=== PATIENT | female | born 1960 | race Caucasian/White ===

== ENCOUNTER 2016-11-21 08:01 | Outpatient (CLI) | payer MEDICAID ==
[~2016-11-21 08:01] MED LIST: ALDOMET PO; ARIMIDEX1 MG PO; ATIVAN0.5 MG PO; ATORVASTATIN CA20 MG PO; CLEOCIN HCL150 MG PO; CLINDAMYCIN300 M1 PO; DYNAPEN PO; ECOTRIN81 MG PO; ENALAPRIL10 M1 PO; GLUCOPHAGE500 MG PO; LOPID600 MG PO; LOPRESSOR100 MG PO; MOBIC7.5 MG PO; NORVASC10 MG PO; ONGLYZA5 MG PO; ORETIC25 MG PO; TAMOXIFEN CITRA20 MG PO; VASOTEC10 MG PO; VASOTEC20 MG PO; VICODIN 5/500 M1 TAB PO; XARELTO10 MG PO
[2017-01-06] MEDS ORDERED: CLEOCIN HCL300 MG PO (14:38)
[2017-01-06] MEDS ORDERED: ACIDOPHILU1 Billion (14:39)
[2017-04-23] MEDS ORDERED: LEVAQUIN500 M1 PO (08:30)
[2017-04-23] MEDS ORDERED: CLEOCIN HCL150 MG PO (08:34)
[2017-04-23] MEDS ORDERED: CLEOCIN HCL300 MG PO (08:59)
[2017-04-23] MEDS ORDERED: PROBIOTIC1 EACH PO (09:01)
== END 2016-11-21 19:51 | disposition home or self-care (01) ==
LOC: MLB 08:01
PROVIDERS: ATTEND Internal Medicine Geriatric Medicine
DX: E11.9 Type 2 diabetes mellitus without complications (principal); E78.5 Hyperlipidemia, unspecified

== ENCOUNTER 2017-01-04 17:34 | Inpatient (IN) | payer MEDICAID ==
[~2017-01-04] VITALS: Ht 157.5 cm; Wt 74.9 kg
[~2017-01-04 17:34] MED LIST changes: +ALD250 PO; -ALDOMET PO; +AMLO10TA PO; +ARI1 PO; -ARIMIDEX1 MG PO; +ASPI-1093 PO; +ATI.5 PO; -ATIVAN0.5 MG PO; +ATOR20TA40 PO; -ATORVASTATIN CA20 MG PO; -CLEOCIN HCL150 MG PO; +CLIN150C1 PO; -CLINDAMYCIN300 M1 PO; -DYNAPEN PO; -ECOTRIN81 MG PO; +ENAL10TA41 PO; +ENAL20TA46 PO; -ENALAPRIL10 M1 PO; +GEMF600T5 PO; -GLUCOPHAGE500 MG PO; -LOPID600 MG PO; -LOPRESSOR100 MG PO; +MELO7.5T11 PO; +METF500T PO; +METO100T98 PO; -MOBIC7.5 MG PO; -NORVASC10 MG PO; -ONGLYZA5 MG PO; +ORE25 PO; -ORETIC25 MG PO; +SAXA5TAB PO; +TAMO20TA3 PO; -TAMOXIFEN CITRA20 MG PO; -VASOTEC10 MG PO; -VASOTEC20 MG PO; -VICODIN 5/500 M1 TAB PO; +XAR10 PO; -XARELTO10 MG PO; +[UNRECOGNIZED DRUG - CODE] PO
[2017-01-04 17:46] VITALS: BP 145/60
--- NOTE | 2017-01-04 19:09 | NUR ---
Patient ambulated to bed 03.
[2017-01-04] MEDS ORDERED: NACL 0.9% 1,000 ML IV ONE (19:32)
[2017-01-04] MEDS ORDERED: PIPERACILLIN/TAZOBACTAM 3.375 GM in DEXTROSE 5% 50 ML IV ONE (19:35)
--- NOTE | 2017-01-04 19:37 | NUR ---
Dr. Francois evaluating patient at bedside.
--- NOTE | 2017-01-04 19:37 | NUR ---
PATIENT PRESENTS TO ED WITH RUE PAIN/SWELLING/ERYTHEMA . PT STATES THIS IS RECURRENT EVERY 6 MONTHS AND SHE IS USUALLY GIVEN ANTIBIOTICS AND DX WITH INFECTION . DENIES N/V/D; SKIN IS PINK/WARM/DRY; AAOX4 WITH EVEN AND STEADY GAIT; LUNGS CLEAR BL; HR EVEN AND REGULAR; PT DENIES ANY FEVER, CP, SOB, OR COUGH AT THIS TIME; PATIENT STATES PAIN OF 0/10 AT THIS TIME; VSS; PATIENT POSITIONED FOR COMFORT; HOB ELEVATED; BEDRAILS UP X2; BED DOWN. ER MD MADE AWARE OF PT STATUS.SON AT BEDSIDE
--- NOTE | 2017-01-04 19:48 | NUR ---
XRAY at bedside.
[2017-01-04] MEDS ORDERED: PIPERACILLIN/TAZOBACTAM 3.375 GM VIAL IV ONE ×2 (19:56→23:15)
[2017-01-04 20:01] LABS: BASOPHILS # (AUTO) 0.4 K/uL (0.00-0.22); BASOPHILS % (AUTO) 3.2 % (0.0-2.0); EOSINOPHILS # (AUTO) 0.2 K/uL (0-0.4); EOSINOPHILS % (AUTO) 1.6 % (0.0-4.0); HEMATOCRIT 44.9 % (36-48); HEMOGLOBIN 14.9 g/dL (12.0-16.0); LYMPHOCYTES # (AUTO) 1.1 K/uL (2.5-16.5); MEAN CORPUSCULAR HEMOGLOBIN 30 pg (27-31); MEAN CORPUSCULAR HGB CONC 33 g/dL (33-37); MEAN CORPUSCULAR VOLUME 90 fL (80-94); MONOCYTES # (AUTO) 0.3 K/uL (0.8-1.0); MONOCYTES % (AUTO) 2.1 % (1.7-9.3); NEUTROPHILS # (AUTO) 11.8 K/uL (1.8-7.7); NEUTROPHILS % (AUTO) 85.1 % (42.2-75.2); PLATELET COUNT (AUTO) 170 K/uL (140-450); RED BLOOD CELL COUNT(AUTO) 4.98 MIL/uL (4.20-5.40); RED CELL DISTRIBUTION WIDTH 11.8 % (11.6-13.7); WHITE BLOOD COUNT (AUTO) 13.8 K/uL (4.8-10.8)
[2017-01-04 20:17] LABS: ALBUMIN 3.7 g/dL (3.4-5.0); ANION GAP 14.2 (8-16); CARBON DIOXIDE 30.1 mmol/L (21-32); CREATININE 0.8 mg/dL (0.6-1.3); POTASSIUM 3.3 mmol/L (3.5-5.1); TOTAL BILIRUBIN 0.8 mg/dL (0.0-1.0); TOTAL PROTEIN, SERUM 7.4 g/dL (6.4-8.2)
[2017-01-04 20:25] LABS: INR 1.1 (0.8-1.2); PROTHROMBIN TIME 10.4 secs (10.8-13.4)
--- NOTE | 2017-01-04 20:28 | NUR ---
Patient will be going to room 104 via ruyen per RN.
[2017-01-04 20:33] LABS: LACTIC ACID 2.4 mmol/L (0.4-2.0)
--- NOTE | 2017-01-04 20:33 | NUR ---
SPOKE TO HOUSE FLORENTINO TINEO PATIENT WILL GO TO ER HOLD. ER MD AWARE. PER FELIPE, WAITING FOR LAB RESULTS
[2017-01-04] MEDS ORDERED: NACL 0.9% 1,500 ML IV ONE (20:35)
[2017-01-04] MEDS ORDERED: MORPHINE SULFATE 4 MG/ML SYR IVP ONE (20:35)
[2017-01-04] MEDS ORDERED: ONDANSETRON 4 MG/2 ML VIAL IVP ONE (20:35)
[2017-01-04] MEDS ORDERED: HYDROcodone/APAP 5/325 MG 1 TAB TAB PO PRN (21:00)
[2017-01-04] MEDS ORDERED: ACETAMINOPHEN 325 MG TAB PO PRN (21:00)
[2017-01-04] MEDS ORDERED: ONDANSETRON 4 MG/2 ML VIAL IVP PRN (21:00)
[2017-01-04] MEDS ORDERED: POTASSIUM CHLORIDE 10 MEQ TABER PO SCH (21:05)
--- NOTE | 2017-01-04 21:07 | NUR ---
Patient will be admitted to care of . Admited to TELEMETRY. Will go to room 112B. Belongings list completed. Report to J Carlos YOUNG RN
--- NOTE | 2017-01-04 21:10 | NUR ---
Admitted from [facility] with chief complaint of RIGHT ARM PAIN. A 56 y/o. Female, Appropriate. ALERT AWAKE ORIENTED X4. NIGERIAN-SPEAKING BUT FAMILY MEMBER ARE AT BEDSIDE DURING ADMISSION. INITIAL ASSESSMENT DONE. NO S/S OF RESPIRATORY DISTRESS OR SOB NOTED. NO C/O PAIN OR ANY DISCOMFORT AT THIS TIME. REDNESS AND SWELLING NOTED ON THE RIGHT ARM D/T CELLULITIS. PLAN OF CARE REVIEWED TO PT AND FAMILY AT BEDSIDE. AND VERBALIZED UNDERSTANDING. oriented to call light, bed, phone,television, bathroom, smoking policy, visiting hours, procedures, ID bracelet on. Belongings list checked. CALL LIGHT WITHIN REACH. WILL CONTINUE TO MONITOR.
[2017-01-04] MEDS: NACL 0.9% 1,000 ML IV SCH (21:15)
[2017-01-04] MEDS ORDERED: DEXTROSE 50% 50 ML SYR IVP PRN ×2 (21:20→21:30)
[2017-01-04] MEDS ORDERED: INSULIN LISPRO SLIDING SCALE 100 UNITS/ML VIAL SUBQ PRN (21:20)
[2017-01-04 22:02] LABS: FREE T4 (FREE THYROXINE) 1.02 ng/dL (0.76-1.46); THYROID STIMULATING HORMONE 0.28 uIU/mL (0.34-3.76)
[2017-01-04 22:06] LABS: APPEARANCE,URINE CLEAR (CLEAR); BILIRUBIN,URINE NEGATIVE (NEGATIVE); BLOOD, URINE TRACE-I (NEGATIVE); COLOR,URINE YELLOW (YELLOW); LEUKOCYTE ESTERASE ,URINE NEGATIVE (NEGATIVE); NITRITE, URINE NEGATIVE (NEGATIVE); PH,URINE 6.5 (5.0-9.0); PROTEIN,URINE NEGATIVE (NEGATIVE); UGLUCOSE 3+ (NEGATIVE); UROBILINOGEN,URINE 0.2 EU/dL (0.2 - 1)
[2017-01-04 22:12] LABS: AMPHETAMINE, URINE NEG. ng/ml (NEG <=1000); BARBITURATE, URINE NEG. ng/ml (NEG <=200); BENZODIAZEPINE, URINE NEG. ng/mL (NEG <=200); CANNABINOID, URINE NEG. ng/mL (NEG <=50); COCAINE, URINE NEG. ng/mL (NEG <=300); OPIATE, URINE NEG. ng/mL (NEG <=2000); PHENCYCLIDINE SCREEN,URINE NEG. ng/mL (NEG <=25)
[2017-01-04 22:19] LABS: BACTERIA,URINE FEW /HPF (None Seen); RBC,URINE 0-5 (RARE) /HPF (0-5); SQUAMOUS EPITHELIAL CELL,UR None Seen /LPF (0-3 (FEW)); WBC,URINE 0-5 (RARE) /HPF (0-5); YEAST,URINE Rare /HPF (None Seen)
[2017-01-04] MEDS: PIPER/TAZO 3.375GM/D5W PREMIX 50 ML IV SCH (23:39)
[2017-01-05] VITALS: BP 125/72
--- NOTE | 2017-01-05 00:30 | NUR ---
PT IS ASLEEP RIGHT NOW BUT EASILY AROUSABLE. NO S/S OF ANY DISCOMFORT AT THIS TIME. ALL NEEDS ARE ATTENDED. CALL LIGHT WITHIN REACH. WILL CONTINUE TO MONITOR.
[2017-01-05 04:00] VITALS: BP 128/76
[2017-01-05] MEDS ORDERED: PIPERACILLIN/TAZOBACTAM 3.375 GM VIAL IV ONE (05:06)
[2017-01-05] MEDS: PIPER/TAZO 3.375GM/D5W PREMIX 50 ML IV SCH ×4 (05:26→23:38)
--- NOTE | 2017-01-05 05:30 | NUR ---
AM CARE RENDERED. BED LINEN CHANGED. INSTRUCTED PT TO REPOSITION. KEPT CLEAN AND DRY. CALL LIGHT WITHIN REACH. WILL CONTINUE TO MONITOR.
[2017-01-05 06:23] LABS: BASOPHILS % (AUTO) 0.6 % (0.0-2.0); EOSINOPHILS # (AUTO) 0.1 K/uL (0-0.4); EOSINOPHILS % (AUTO) 0.8 % (0.0-4.0); HEMOGLOBIN 13.2 g/dL (12.0-16.0); LYMPHOCYTES # (AUTO) 1.3 K/uL (2.5-16.5); LYMPHOCYTES % (AUTO) 16.4 % (20.5-51.1); MEAN CORPUSCULAR HEMOGLOBIN 31 pg (27-31); MEAN CORPUSCULAR HGB CONC 34 g/dL (33-37); MEAN CORPUSCULAR VOLUME 90 fL (80-94); MONOCYTES # (AUTO) 0.4 K/uL (0.8-1.0); MONOCYTES % (AUTO) 4.7 % (1.7-9.3); NEUTROPHILS # (AUTO) 6.2 K/uL (1.8-7.7); NEUTROPHILS % (AUTO) 77.5 % (42.2-75.2); PLATELET COUNT (AUTO) 143 K/uL (140-450); RED BLOOD CELL COUNT(AUTO) 4.33 MIL/uL (4.20-5.40); RED CELL DISTRIBUTION WIDTH 12.1 % (11.6-13.7)
[2017-01-05] MEDS: BLOOD GLUCOSE MONITORING 1 DEV DEV FS SCH ×4 (06:33→21:36)
[2017-01-05 06:35] LABS: MAGNESIUM 1.9 mg/dL (1.8-2.4); PHOSPHORUS 3.6 mg/dL (2.5-4.9)
[2017-01-05 06:36] LABS: CALCIUM 7.6 mg/dL (8.5-10.1); CARBON DIOXIDE 27.7 mmol/L (21-32); CREATININE 0.7 mg/dL (0.6-1.3); POTASSIUM 3.7 mmol/L (3.5-5.1)
--- NOTE | 2017-01-05 07:15 | NUR ---
PT HAS NO S/S OF ANY DISCOMFORT. PLAN OF CARE ENDORSED TO ALEJO LO AT BEDSIDE FOR CONTINUITY OF CARE.
--- NOTE | 2017-01-05 07:16 | NUR ---
PATIENT HAS BEEN SCREENED AND CATEGORIZED MODERATE NUTRITION RISK. PATIENT WILL BE SEEN WITHIN 3-5 DAYS OF ADMISSION. 01/07/17-01/09/17 ADRIENNE LOZA MS, RDN
--- NOTE | 2017-01-05 07:17 | NUR ---
RECEIVED REPORT FROM NIGHT RN. PT RESTING IN BED. AAOX4. NO S/S OF ACUTE DISTRESS. PT DENIES PAIN. IV SITES PATENT AND INTACT. CALL LIGHT WITHIN REACH. WILL CONTINUE TO MONITOR.
[2017-01-05] MEDS ORDERED: BLOOD GLUCOSE MONITORING 1 DEV DEV FS SCH (07:30)
[2017-01-05 08:00] VITALS: BP 123/77
[2017-01-05] MEDS: metFORMIN 500 MG TAB PO SCH ×2 (08:36→17:01)
[2017-01-05] MEDS: METOPROLOL 50 MG TAB PO SCH ×2 (09:28→21:38)
[2017-01-05] MEDS: NACL 0.9% 1,000 ML IV SCH ×2 (09:28→12:40)
[2017-01-05] MEDS: amLODIPine 5 MG TAB PO SCH (09:29)
[2017-01-05] MEDS: DOCUSATE SODIUM 100 MG GELCAP PO SCH (09:29)
[2017-01-05] MEDS: LACTOBACILLUS RHAMNOSUS GG 1 EACH CAP PO SCH (09:30)
[2017-01-05] MEDS: ECOTRIN 81 MG TABEC PO SCH (09:31)
[2017-01-05] MEDS: GEMFIBROZIL 600 MG TAB PO SCH ×2 (09:32→21:38)
--- NOTE | 2017-01-05 09:32 | NUR ---
PER DR. LAYNE GIVE ALL AM MEDICATIONS.
[2017-01-05] MEDS: LORazepam 0.5 MG TAB PO SCH (09:33)
[2017-01-05] MEDS: ENALAPRIL 10 MG TAB PO SCH (09:33)
[2017-01-05] MEDS: RIVAROXABAN 10 MG TAB PO SCH (09:39)
[2017-01-05] MEDS: METHYLDOPA 250 MG TAB PO SCH (09:42)
[2017-01-05] MEDS: ANASTROZOLE 1 MG TAB PO SCH (09:44)
--- NOTE | 2017-01-05 09:57 | NUR ---
PT RESTING IN BED. NO S/S OF ACUTE DISTRESS. PT DENIES PAIN. PT TOLERATED AM MEDS. CALL LIGHT WITHIN REACH. SAFETY MEASURES ENSURED. WILL CONTINUE TO MONITOR.
[2017-01-05 12:00] VITALS: BP 136/70
--- NOTE | 2017-01-05 12:26 | NUR ---
PT RESTING IN BED. NO S/S OF ACUTE DISTRESS. PT DENIES PAIN. CALL LIGHT WITHIN REACH. SAFETY MEASURES ENSURED. WILL CONTINUE TO MONITOR.
--- NOTE | 2017-01-05 14:48 | NUR ---
PT RESTING IN BED. NO S/S OF ACUTE DISTRESS. PT DENIES PAIN. CALL LIGHT WITHIN REACH. SAFETY MEASURES ENSURED. WILL CONTINUE TO MONITOR.
[2017-01-05 16:00] VITALS: BP 127/72
--- NOTE | 2017-01-05 16:31 | NUR ---
PT RESTING IN BED. NO S/S OF ACUTE DISTRESS. PT DENIES PAIN. CALL LIGHT WITHIN REACH. SAFETY MEASURES ENSURED. WILL CONTINUE TO MONITOR.
--- NOTE | 2017-01-05 19:15 | NUR ---
ENDORSED PLAN OF CARE TO NIGHT RN. PT REMAINS IN STABLE CONDITION
--- NOTE | 2017-01-05 19:20 | NUR ---
RECEIVED PT FROM ALEJO RN PT LIBERIAN SPEAKER AAOX4 AMBULATORY WITH CELLULITIS ON RT ARM, IV O;N LEFT HAND INFUSING WELL AND HL ON LEFT AC PATENT, ON TELEMETRY SR, RELATIVES AT [facility] INITIAL ASSESSMENT DONE
[2017-01-05 20:00] VITALS: BP 128/75
[2017-01-05] MEDS ORDERED: ATORVASTATIN 20 MG TAB PO SCH (21:00)
--- NOTE | 2017-01-05 21:30 | NUR ---
BLOOD SUGAR TEST 165 COVERAGE WITH 2 UNITS HUMALOG ON TELE SR
[2017-01-05] MEDS: INSULIN LISPRO SLIDING SCALE 100 UNITS/ML VIAL SUBQ PRN (21:32)
[2017-01-05] MEDS: CALCIUM CARB/VIT-D 500 MG/200 IU 1 TAB PO SCH (21:38)
[2017-01-06] VITALS: BP 143/71
--- NOTE | 2017-01-06 01:02 | NUR ---
PT SLEEPING WELL RT ARM ON PILLOW ELEVATION DENIES ANY PAIN AT THIS TIME ON TELE SR
[2017-01-06 04:00] VITALS: BP 139/71
--- NOTE | 2017-01-06 04:00 | NUR ---
SPONGE BATH GIVEN LINEN CHANGE, ON TELEMETRY SR RT ARM ON PILLOW ELEVATION
[2017-01-06] MEDS: PIPER/TAZO 3.375GM/D5W PREMIX 50 ML IV SCH ×2 (06:17→11:54)
[2017-01-06] MEDS: BLOOD GLUCOSE MONITORING 1 DEV DEV FS SCH ×2 (06:21→11:47)
--- NOTE | 2017-01-06 06:30 | NUR ---
BLOOD SUGAR TEST 149 NOT COVERAGE PT ON TELEMETRY SR
[2017-01-06 06:44] LABS: BASOPHILS # (AUTO) 0.1 K/uL (0.00-0.22); BASOPHILS % (AUTO) 1.2 % (0.0-2.0); EOSINOPHILS # (AUTO) 0.2 K/uL (0-0.4); EOSINOPHILS % (AUTO) 3.4 % (0.0-4.0); HEMATOCRIT 40.6 % (36-48); HEMOGLOBIN 13.9 g/dL (12.0-16.0); LYMPHOCYTES # (AUTO) 1.4 K/uL (2.5-16.5); LYMPHOCYTES % (AUTO) 26.5 % (20.5-51.1); MEAN CORPUSCULAR HEMOGLOBIN 31 pg (27-31); MEAN CORPUSCULAR HGB CONC 34 g/dL (33-37); MEAN CORPUSCULAR VOLUME 90 fL (80-94); MONOCYTES # (AUTO) 0.3 K/uL (0.8-1.0); MONOCYTES % (AUTO) 6.6 % (1.7-9.3); NEUTROPHILS # (AUTO) 3.3 K/uL (1.8-7.7); NEUTROPHILS % (AUTO) 62.3 % (42.2-75.2); PLATELET COUNT (AUTO) 158 K/uL (140-450); WHITE BLOOD COUNT (AUTO) 5.3 K/uL (4.8-10.8)
[2017-01-06 06:58] LABS: MAGNESIUM 2.2 mg/dL (1.8-2.4)
[2017-01-06 07:02] LABS: ANION GAP 11.8 (8-16); CALCIUM 8.6 mg/dL (8.5-10.1); CARBON DIOXIDE 27.1 mmol/L (21-32); CREATININE 0.6 mg/dL (0.6-1.3); POTASSIUM 3.9 mmol/L (3.5-5.1)
--- NOTE | 2017-01-06 07:07 | NUR ---
RECEIVED REPORT FROM NIGHT RN. PT RESTING IN BED. AAOX4. NO S/S OF ACUTE DISTRESS. PT DENIES PAIN. IV SITES PATENT AND INTACT. CALL LIGHT WITHIN REACH. SAFETY MEASURES ENSURED. WILL CONTINUE TO MONITOR.
[2017-01-06 07:56] VITALS: BP 121/70
[2017-01-06] MEDS: amLODIPine 5 MG TAB PO SCH (08:32)
[2017-01-06] MEDS: DOCUSATE SODIUM 100 MG GELCAP PO SCH (08:32)
[2017-01-06] MEDS: METHYLDOPA 250 MG TAB PO SCH (08:32)
[2017-01-06] MEDS: METOPROLOL 50 MG TAB PO SCH (08:32)
[2017-01-06] MEDS: metFORMIN 500 MG TAB PO SCH (08:33)
[2017-01-06] MEDS: ECOTRIN 81 MG TABEC PO SCH (08:33)
[2017-01-06] MEDS: LACTOBACILLUS RHAMNOSUS GG 1 EACH CAP PO SCH (08:33)
[2017-01-06] MEDS: ENALAPRIL 10 MG TAB PO SCH (08:33)
[2017-01-06] MEDS: CALCIUM CARB/VIT-D 500 MG/200 IU 1 TAB PO SCH (08:33)
[2017-01-06] MEDS: GEMFIBROZIL 600 MG TAB PO SCH (08:33)
[2017-01-06] MEDS: LORazepam 0.5 MG TAB PO SCH (08:34)
[2017-01-06] MEDS: ANASTROZOLE 1 MG TAB PO SCH (08:35)
[2017-01-06] MEDS: RIVAROXABAN 10 MG TAB PO SCH (08:46)
--- NOTE | 2017-01-06 10:22 | NUR ---
PT RESTING IN BED. NO S/S OF CUTE DISTRESS. PT DENIES PAIN. CALL LIGHT WITHIN REACH. SAFETY MEASURES ENSURED. WILL CONTINUE TO MONITOR.
[2017-01-06 11:20] VITALS: BP 121/70
--- NOTE | 2017-01-06 11:24 | NUR ---
PT TAKEN TO SHOWER. NO S/S OF ACUTE DISTRESS. PT STEADY ON FEET. PT DENIES PAIN. CALL LIGHT WITHIN REACH. SAFETY MEASURES ENSURED. WILL CONTINUE TO MONITOR.
[2017-01-06 12:00] VITALS: BP 137/77
[2017-01-06] MEDS: INSULIN LISPRO SLIDING SCALE 100 UNITS/ML VIAL SUBQ PRN (12:32)
[2017-01-06] MEDS ORDERED: CLIN300C2 PO (14:38)
[2017-01-06] MEDS ORDERED: LACT-2 (14:39)
--- NOTE | 2017-01-06 15:15 | NUR ---
PT CLEARED FOR DISCHARGE. DISCHARGE INSTRUCTIONS PROVIDED. PT VERBALIZED UNDERSTANDING. IV'S TAKEN OUT. TIPS INTACT. NO S/S OF ACUTE DISTRESS. PT DENIES PAIN. PT STATES SHE IS UP TO DATE ON FLU AND PNA VACCINE. AWAITING RIDE FROM .
--- NOTE | 2017-01-06 15:27 | NUR ---
PT TAKEN OFF UNIT. PT REMAINS IN STABLE CONDITION.
== END 2017-01-06 15:27 | disposition home or self-care (01) | DRG 720 ==
LOC: MED 17:39 → MTU 19:41
PROVIDERS: ADMIT Student in an Organized Health Care Education/Training Program; ATTEND Student in an Organized Health Care Education/Training Program
DX: A41.9 Sepsis, unspecified organism (principal); E11.51 Type 2 diabetes mellitus with diabetic peripheral angiopathy without gangrene; D68.69 Other thrombophilia; I82.621 Acute embolism and thrombosis of deep veins of right upper extremity; E11.65 Type 2 diabetes mellitus with hyperglycemia; E83.51 Hypocalcemia; L03.113 Cellulitis of right upper limb; E78.5 Hyperlipidemia, unspecified; I10 Essential (primary) hypertension; Z90.11 Acquired absence of right breast and nipple; Z79.899 Other long term (current) drug therapy; Z79.84 Long term (current) use of oral hypoglycemic drugs; Z85.3 Personal history of malignant neoplasm of breast; Z83.3 Family history of diabetes mellitus
CPT/HCPCS: 36415; 71010; 80048; 80053; 80305; 81001; 82948; 83036; 83605; 83690; 83735; 83880; 84100; 84439; 84443; 84484; 85025; 85610; 87040; 87081; 87086; 93005; 93925; 93970; 96365; 96375; 99285; J2270; J2405; J2543; J7030; J7060; Q0092

== ENCOUNTER 2017-02-21 08:04 | Outpatient (CLI) | payer MEDICAID ==
[~2017-02-21 08:04] MED LIST changes: -CLIN150C1 PO; +CLIN300C2 PO; -ENAL10TA41 PO; +LACT-2; -ORE25 PO; -TAMO20TA3 PO; -[UNRECOGNIZED DRUG - CODE] PO
[2017-02-21 09:48] LABS: ANION GAP 10.9 (8-16); CARBON DIOXIDE 30.5 mmol/L (21-32); CREATININE 0.6 mg/dL (0.6-1.3); POTASSIUM 3.4 mmol/L (3.5-5.1)
[2017-02-21 09:55] LABS: ALBUMIN 3.7 g/dL (3.4-5.0); TOTAL BILIRUBIN 0.6 mg/dL (0.0-1.0); TOTAL PROTEIN, SERUM 7.1 g/dL (6.4-8.2)
[2017-02-21 11:29] LABS: CHOL/HDL RATIO 3.9 (1-4.5)
[2017-02-22 10:28] LABS: VITAMIN D, 25-HYDROXY 24.9 ng/mL (30.0-100.0)
[2017-02-22 15:27] LABS: MICROALBUMIN, UR RANDOM <3.0 ug/mL (Not Estab.)
[2017-02-22 17:16] LABS: HEMOGLOBIN A1C 7.8 % (4.8-5.6)
== END 2017-02-21 19:44 | disposition home or self-care (01) ==
LOC: MLB 08:04
PROVIDERS: ATTEND Internal Medicine Geriatric Medicine
DX: E78.5 Hyperlipidemia, unspecified (principal); E11.9 Type 2 diabetes mellitus without complications; E55.9 Vitamin D deficiency, unspecified
CPT/HCPCS: 36415; 80053; 82043; 82306; 83036

== ENCOUNTER 2017-04-20 18:08 | Inpatient (IN) | payer MEDICAID ==
[~2017-04-20] VITALS: Ht 160 cm; Wt 72.6 kg
[2017-04-20 18:35] VITALS: BP 170/108
[2017-04-20] MEDS ORDERED: NACL 0.9% 1,000 ML IV SCH (18:35)
--- NOTE | 2017-04-20 18:37 | NUR ---
Patient ambulated to bed 07.
--- NOTE | 2017-04-20 18:38 | NUR ---
PT PRESENTS TO ER W/C/O RIGHT ARM PAIN AND SWELLING. RIGHT ARM VERY EDEMATOUS FROM WRIST TO SHOULDER, DEEP RED IN COLOR. HX DM, HTN, HYPOTHYROIDISM, HYPERLIPIDEMIA, BREAST CA, REPEATED BOUTS OF RIGHT ARM CELLULITIS. DENIES N/V/D; AAOX4 WITH EVEN AND STEADY GAIT; LUNGS CLEAR BL; HR EVEN AND REGULAR; PT DENIES ANY FEVER, CP, SOB, OR COUGH AT THIS TIME; PATIENT STATES PAIN OF 4/10 AT THIS TIME; PATIENT POSITIONED FOR COMFORT; HOB ELEVATED; BEDRAILS UP X2; BED DOWN. ER MD MADE AWARE OF PT STATUS. Addendum: 04/20/17 at 1915 by MED1 PT STATED HAS SURGERY RIGHT BREAST 5 YEARS AGO.
--- NOTE | 2017-04-20 18:42 | NUR ---
XRAY at bedside.
--- NOTE | 2017-04-20 18:51 | NUR ---
EKG AT BEDSIDE.
--- NOTE | 2017-04-20 18:54 | NUR ---
US at bedside.
--- NOTE | 2017-04-20 19:06 | NUR ---
REPORT RECEIVED FROM WALLY LOCKHART
--- NOTE | 2017-04-20 19:15 | NUR ---
Pt report given to WALLY NESBITT. Transfer of care at this time.
[2017-04-20 19:16] LABS: BASOPHILS # (AUTO) 0.4 K/uL (0.00-0.22); BASOPHILS % (AUTO) 3.2 % (0.0-2.0); EOSINOPHILS # (AUTO) 0.2 K/uL (0-0.4); EOSINOPHILS % (AUTO) 1.8 % (0.0-4.0); HEMATOCRIT 40.2 % (36-48); HEMOGLOBIN 13.7 g/dL (12.0-16.0); LYMPHOCYTES # (AUTO) 1.1 K/uL (2.5-16.5); LYMPHOCYTES % (AUTO) 8.6 % (20.5-51.1); MEAN CORPUSCULAR HEMOGLOBIN 31 pg (27-31); MEAN CORPUSCULAR HGB CONC 34 g/dL (33-37); MEAN CORPUSCULAR VOLUME 89 fL (80-94); MONOCYTES # (AUTO) 0.2 K/uL (0.8-1.0); MONOCYTES % (AUTO) 1.5 % (1.7-9.3); NEUTROPHILS # (AUTO) 10.5 K/uL (1.8-7.7); NEUTROPHILS % (AUTO) 84.9 % (42.2-75.2); PLATELET COUNT (AUTO) 161 K/uL (140-450); RED CELL DISTRIBUTION WIDTH 11.6 % (11.6-13.7); WHITE BLOOD COUNT (AUTO) 12.4 K/uL (4.8-10.8)
[2017-04-20 19:31] LABS: CALCIUM 8.5 mg/dL (8.5-10.1); CARBON DIOXIDE 29.1 mmol/L (21-32); CREATININE 0.8 mg/dL (0.6-1.3); POTASSIUM 3.1 mmol/L (3.5-5.1)
[2017-04-20 19:37] LABS: INR 1.1 (0.8-1.2); PARTIAL THROMBOPLASTIN TIME 30.6 secs (22-35.6); PROTHROMBIN TIME 11.6 secs (10.8-13.4)
[2017-04-20 19:39] LABS: ALBUMIN 3.6 g/dL (3.4-5.0); TOTAL BILIRUBIN 0.5 mg/dL (0.0-1.0)
--- NOTE | 2017-04-20 19:44 | NUR ---
Dr. Salter evaluating patient at bedside.
[2017-04-20 19:46] LABS: D-DIMER < 100 ng/ml (0-400)
[2017-04-20] MEDS ORDERED: LORazepam 2 MG/ML VIAL IVP ONE (19:50)
[2017-04-20] MEDS ORDERED: KETOROLAC 30 MG/ML VIAL IVP ONE (20:00)
[2017-04-20 20:31] LABS: APPEARANCE,URINE CLEAR (CLEAR); BILIRUBIN,URINE NEGATIVE (NEGATIVE); BLOOD, URINE TRACE-I (NEGATIVE); COLOR,URINE YELLOW (YELLOW); LEUKOCYTE ESTERASE ,URINE NEGATIVE (NEGATIVE); NITRITE, URINE NEGATIVE (NEGATIVE); PROTEIN,URINE NEGATIVE (NEGATIVE); UGLUCOSE TRACE (NEGATIVE); UROBILINOGEN,URINE 0.2 EU/dL (0.2 - 1)
[2017-04-20 20:35] LABS: BACTERIA,URINE RARE /HPF (None Seen); RBC,URINE 0-3 /HPF (0-5); SQUAMOUS EPITHELIAL CELL,UR 0-3 /LPF (0-3 (FEW)); WBC,URINE 0-3 /HPF (0-5)
--- NOTE | 2017-04-20 20:36 | NUR ---
Ultrasound at bedside.
[2017-04-20] MEDS ORDERED: CLINDAMYCIN 900 MG in DEXTROSE 5% 100 ML IV ONE (21:05)
[2017-04-20] MEDS: NACL 0.9% 1,000 ML IV SCH (21:24)
[2017-04-20] MEDS ORDERED: MORPHINE SULFATE 2 MG/ML SYR IVP PRN (21:25)
[2017-04-20] MEDS ORDERED: HYDROcodone/APAP 7.5/325 MG 1 TAB PO PRN (21:25)
[2017-04-20] MEDS ORDERED: ONDANSETRON 4 MG/2 ML VIAL IM/IVP PRN (21:25)
[2017-04-20] MEDS ORDERED: DEXTROSE 50% 50 ML SYR IVP PRN (21:25)
[2017-04-20] MEDS ORDERED: DOCUSATE SODIUM 100 MG GELCAP PO PRN (21:25)
[2017-04-20] MEDS ORDERED: METOPROLOL 50 MG TAB PO ONE (21:35)
[2017-04-20] MEDS ORDERED: CLINDAMYCIN 900 MG/6 ML VIAL IV ONE (21:37)
--- NOTE | 2017-04-20 21:42 | NUR ---
Patient will be admitted to care of DR WILSON. Admited to TELE. Will go to room 105B. Belongings list completed. Report to WALLY TYSON.
[2017-04-20 21:58] LABS: AMPHETAMINE, URINE NEG. ng/ml (NEG <=1000); BARBITURATE, URINE NEG. ng/ml (NEG <=200); BENZODIAZEPINE, URINE NEG. ng/mL (NEG <=200); CANNABINOID, URINE NEG. ng/mL (NEG <=50); COCAINE, URINE NEG. ng/mL (NEG <=300); OPIATE, URINE NEG. ng/mL (NEG <=2000); PHENCYCLIDINE SCREEN,URINE NEG. ng/mL (NEG <=25)
[2017-04-20 22:00] VITALS: BP 150/75
[2017-04-20 22:09] LABS: CHOL/HDL RATIO 3.4 (1-4.5); MAGNESIUM 1.3 mg/dL (1.8-2.4); PHOSPHORUS 4.3 mg/dL (2.5-4.9)
[2017-04-20 22:10] LABS: FREE T4 (FREE THYROXINE) 0.93 ng/dL (0.76-1.46); THYROID STIMULATING HORMONE 0.26 uIU/mL (0.34-3.74)
--- NOTE | 2017-04-20 22:30 | NUR ---
PT ADMITTED TO UNIT FROM ED, PT AAOX4 ON ROOM AIR, NO SOB OR SIGN OF DISTRESS AT THIS TIME, IV TO LEFT AC PATENT AND INTACT, SKIN INTACT WITH RIGHT ARM SWELLING AND REDNESS, WARM TO THE TOUCH. PT DENIES PAIN AT THIS TIME, ORIENTED PT TO ROOM AND CALL LIGHT, DISCUSSED PLAN OF CARE WITH PATIENT, PT VERBALIZED UNDERSTANDING, CALL LIGHT WITHIN REACH. WILL CONTINUE TO MONITOR.
--- NOTE | 2017-04-20 22:47 | NUR ---
PT DOESNT NOT WANT ANYMORE INTERRUPTIONS AT THIS TIME AND WOULD LIKE TO SLEEP, US OF BILATERAL LOWER EXTREMITIES WILL BE DONE IN THE AM
--- NOTE | 2017-04-20 23:00 | NUR ---
SPOKE TO MD LAYNE. PT HAD NO DIET, AND MAGNESIUM LEVEL 1.3, WILL FOLLOW UP WITH ORDERS.
[2017-04-21] VITALS: BP 160/80
--- NOTE | 2017-04-21 00:30 | NUR ---
MILD FEVER OF 100.4 ADMINISTERED TYLENOL PER MD ORDER, OTHER VITAL SIGNS STABLE, NO SOB OR SIGN OF DISTRESS, PT AMBULATED TO RESTROOM, CALL LIGHT WITHIN REACH WILL CONTINUE TO MONITOR
[2017-04-21] MEDS: ACETAMINOPHEN 325 MG TAB PO PRN ×2 (00:36→17:04)
--- NOTE | 2017-04-21 01:10 | NUR ---
SPOKE TO DR LAYNE INFORMED HIM OF PTS POTASSIUM LEVEL OF 3.1 MD STATED OKAY AND IT CAN WAIT TILL THE MORNING AND LET HIM KNOW PTS DIAGNOSIS WAS WRONG THAT THE CELLULITIS WAS IN THE RIGHT ARM NOT THE LEFT. MD TO CORRECT IT.
--- NOTE | 2017-04-21 02:05 | NUR ---
PT SLEEPING, NO SOB OR SIGN OF DISTRESS, CALL LIGHT WITHIN REACH. WILL CONTINUE TO MONITOR
[2017-04-21 04:00] VITALS: BP 146/69
--- NOTE | 2017-04-21 04:20 | NUR ---
PT SLEEPING, NO SIGN OF DISTRESS,, CALL LIGHT WITHIN REACH. WILL CONTINUE TO MONITOR.
[2017-04-21] MEDS ORDERED: CLINDAMYCIN 600 MG/4 ML VIAL ONE (05:15)
[2017-04-21] MEDS: CLINDAMYCIN 600 MG in DEXTROSE 5% 50 ML IV SCH ×4 (05:23→23:57)
[2017-04-21] MEDS: INSULIN LISPRO SLIDING SCALE 100 UNITS/ML VIAL SUBQ PRN ×3 (06:33→20:55)
[2017-04-21] MEDS: BLOOD GLUCOSE MONITORING 1 DEV DEV FS SCH ×4 (06:33→20:19)
--- NOTE | 2017-04-21 07:25 | NUR ---
ENDORSED PATIENT TO DAY RN AT BEDSIDE, PT IN STABLE CONDITION SLEEPING COMFORTABLE.
--- NOTE | 2017-04-21 07:26 | NUR ---
RECEIVED CARE OF PT FROM OUTREACH REPRESENTATIVE NURSE AT BEDSIDE. PT IS SLEEPING. PT HAS IV ON L AC 20 G RUNNING NS@60ML/HR. NO DISTRESS NOTED. NO BLOOD PRESSURE OR VENIPUNCTURE ON R ARM SIGN POSTED. PT'S R ARM IS RED AND WARM TO TOUCH AND SWOLLEN. WILL CONTINUE TO MONITOR. CALL LIGHT WITHIN REACH.
[2017-04-21 08:00] VITALS: BP 150/69
[2017-04-21] MEDS ORDERED: metFORMIN 500 MG TAB PO SCH (09:00)
[2017-04-21] MEDS ORDERED: RIVAROXABAN 10 MG TAB PO SCH ×2 (09:00→10:33)
[2017-04-21] MEDS ORDERED: SAXAGLIPTIN HCL 5 MG PO SCH (09:00)
[2017-04-21] MEDS: ANASTROZOLE 1 MG TAB PO SCH (09:08)
[2017-04-21] MEDS: METHYLDOPA 250 MG TAB PO SCH (09:08)
[2017-04-21] MEDS: LACTOBACILLUS RHAMNOSUS GG 1 EACH CAP PO SCH (09:09)
[2017-04-21] MEDS: ECOTRIN 81 MG TABEC PO SCH (09:09)
[2017-04-21] MEDS: ATORVASTATIN 20 MG TAB PO SCH (09:09)
[2017-04-21] MEDS: ENALAPRIL 10 MG TAB PO SCH (09:09)
[2017-04-21] MEDS: METOPROLOL 50 MG TAB PO SCH ×2 (09:10→20:14)
[2017-04-21] MEDS: amLODIPine 5 MG TAB PO SCH (09:11)
[2017-04-21] MEDS: CELECOXIB 100 MG CAP PO SCH (09:11)
[2017-04-21] MEDS: LORazepam 0.5 MG TAB PO SCH (09:12)
[2017-04-21] MEDS: GEMFIBROZIL 600 MG TAB PO SCH ×2 (09:12→20:14)
--- NOTE | 2017-04-21 09:13 | NUR ---
PATIENT HAS BEEN SCREENED AND CATEGORIZED MODERATE NUTRITION RISK. PATIENT WILL BE SEEN WITHIN 3-5 DAYS OF ADMISSION. 04/23/17-04/25/[address] Addendum: 04/22/17 at [address] D/T PT WITH SEPSIS, PATIENT HAS BEEN RESCREENED AND RECATEGORIZED HIGH NUTRITION RISK. PATIENT WILL BE SEEN WITHIN 1-2 DAYS OF ADMISSION. 04/21/17-04/22/[address]
[2017-04-21] MEDS ORDERED: PATIENTS OWN TABLET PO SCH (09:45)
--- NOTE | 2017-04-21 09:50 | NUR ---
SPOKE TO DR REGARDING LOW MAG AND POTASSIUM LEVELS. DR WILL PUT IN ORDERS.
[2017-04-21] MEDS ORDERED: POTASSIUM CHLORIDE 10 MEQ TABER PO SCH (10:30)
[2017-04-21] MEDS ORDERED: MAGNESIUM OXIDE 400 MG TAB PO SCH (10:30)
--- NOTE | 2017-04-21 11:50 | NUR ---
ANSWERED QUESTIONS PT'S SON HAS REGARDING PT'S CONDITION. WILL ASK DOCTOR TO EXPLAIN IF HE HAS FURTHER QUESTIONS.
[2017-04-21] MEDS: LEVOFLOXACIN 500 MG/D5W PREMIX 100 ML IV SCH (11:57)
[2017-04-21 12:00] VITALS: BP 131/65
--- NOTE | 2017-04-21 12:00 | NUR ---
ADMINISTERED ANTIBIOTICS ORDERED. PT TOLERATING WELL. CALL LIGHT WITHIN REACH. WILL CONTINUE TO MONITOR.
[2017-04-21] MEDS: NACL 0.9% 1,000 ML IV SCH ×2 (12:50→23:29)
--- NOTE | 2017-04-21 14:00 | NUR ---
FRIEND VISITING AT BEDSIDE. NO COMPLAINTS AT THIS TIME. CALL LIGHT WITHIN REACH. WILL CONTINUE TO MONITOR.
[2017-04-21 16:00] VITALS: BP 151/71
--- NOTE | 2017-04-21 16:00 | NUR ---
FAMILY VISITING AT BEDSIDE. NO COMPLAINTS AT THIS TIME. CALL LIGHT WITHIN REACH. WILL CONTINUE TO MONITOR.
[2017-04-21 16:15] LABS: LACTIC ACID 2.4 mmol/L (0.4-2.0)
--- NOTE | 2017-04-21 18:00 | NUR ---
PT REFUSED DINNER. NO OTHER COMPLAINTS. CALL LIGHT WITHIN REACH. WILL CONTINUE TO MONITOR.
--- NOTE | 2017-04-21 19:12 | NUR ---
ENDORSED CARE OF PT TO CLINICAL COURIER NURSE AT BEDSIDE. PT IN STABLE CONDITION.
--- NOTE | 2017-04-21 19:30 | NUR ---
RECEIVED REPORT FROM DAY RN AT BEDSIDE, PATIENT IS AAOX4 RESTING IN BED ON ROM AIR, NO SOB OR SIGN OF DISTRESS AT THIS TIME. IV TO LEFT AC PATENT AND INTACT, SKIN INTACT WITH RIGHT ARM CELLULITIS WITH SWELLING AND REDNESS NOTED. WARM TO THE TOUCH. DENIES PAIN AT THIS TIME. DISCUSSED PLAN OF CARE WITH PATIENT, PT VERBALIZED UNDERSTANDING, CALL LIGHT WITHIN REACH. WILL CONTINUE TO MONITOR.
[2017-04-21 20:00] VITALS: BP 126/70
--- NOTE | 2017-04-21 20:23 | NUR ---
PM MEDS ADMINISTERED, PATIENT TOLERATED WELL, CALL LIGHT WITHIN REACH, WILL CONTINUE TO MONITOR
--- NOTE | 2017-04-21 22:30 | NUR ---
PT SLEEPING NO SIGN OF DISTRESS WILL CONTINUE TO MONITOR.
[2017-04-22] VITALS: BP 126/70
--- NOTE | 2017-04-22 00:19 | NUR ---
VITAL SIGNS STABLE, NO SOB OR SIGN OF DISTRESS, CALL LIGHT WITHIN REACH. WILL CONTINUE TO MONITOR.
--- NOTE | 2017-04-22 02:36 | NUR ---
PT SLEEPING, NO SOB OR SIGN OF DISTRESS, CALL LIGHT WITHIN REACH. WILL CONTINUE TO MONITOR
[2017-04-22 04:00] VITALS: BP 131/70
--- NOTE | 2017-04-22 04:27 | NUR ---
VITAL SIGNS STABLE, NO SIGN OF DISTRESS, CALL LIGHT WITHIN REACH. WILL CONTINUE TO MONITOR.
[2017-04-22] MEDS: CLINDAMYCIN 600 MG in DEXTROSE 5% 50 ML IV SCH ×4 (05:36→20:59)
[2017-04-22 06:01] LABS: BASOPHILS # (AUTO) 0.1 K/uL (0.00-0.22); EOSINOPHILS # (AUTO) 0.1 K/uL (0-0.4); HEMATOCRIT 37.3 % (36-48); LYMPHOCYTES # (AUTO) 1.5 K/uL (2.5-16.5); LYMPHOCYTES % (AUTO) 33.8 % (20.5-51.1); MEAN CORPUSCULAR HEMOGLOBIN 31 pg (27-31); MEAN CORPUSCULAR HGB CONC 35 g/dL (33-37); MEAN CORPUSCULAR VOLUME 90 fL (80-94); MONOCYTES # (AUTO) 0.4 K/uL (0.8-1.0); MONOCYTES % (AUTO) 9.4 % (1.7-9.3); NEUTROPHILS # (AUTO) 2.2 K/uL (1.8-7.7); NEUTROPHILS % (AUTO) 51.8 % (42.2-75.2); PLATELET COUNT (AUTO) 148 K/uL (140-450); RED BLOOD CELL COUNT(AUTO) 4.13 MIL/uL (4.20-5.40); RED CELL DISTRIBUTION WIDTH 11.9 % (11.6-13.7); WHITE BLOOD COUNT (AUTO) 4.3 K/uL (4.8-10.8)
[2017-04-22 06:18] LABS: ANION GAP 11.4 (8-16); CALCIUM 8.6 mg/dL (8.5-10.1); CARBON DIOXIDE 28.4 mmol/L (21-32); CREATININE 0.6 mg/dL (0.6-1.3); POTASSIUM 3.8 mmol/L (3.5-5.1)
[2017-04-22] MEDS: BLOOD GLUCOSE MONITORING 1 DEV DEV FS SCH ×4 (06:21→21:16)
[2017-04-22] MEDS: INSULIN LISPRO SLIDING SCALE 100 UNITS/ML VIAL SUBQ PRN ×3 (06:21→21:17)
[2017-04-22 06:30] LABS: MAGNESIUM 1.7 mg/dL (1.8-2.4); PHOSPHORUS 3.6 mg/dL (2.5-4.9)
--- NOTE | 2017-04-22 07:23 | NUR ---
ENDORSED PATIENT TO DAY RN AT BEDSIDE, PATIENT IN STABLE CONDITION
--- NOTE | 2017-04-22 07:24 | NUR ---
RECEIVED REPORT OF PT FROM PROVIDER RELATIONS CONSULTANT NURSE AT BEDSIDE. REINTRODUCED MYSELF AND UPDATED THE BOARD. PT HAS IV ON L AC 20 G RUNNING NS@100ML/HR. PT STATED SHE HAS NO APPETITE, ENCOURAGED PT TO EAT BEFORE TAKING MEDS. PT WANTED TO TAKE SHOWER AFTER LUNCH, WILL ASK TRAINING DIRECTOR TO HELP. CALL LIGHT WITHIN REACH. WILL CONTINUE TO MONITOR.
[2017-04-22 08:00] VITALS: BP 158/72
[2017-04-22] MEDS: ATORVASTATIN 20 MG TAB PO SCH (08:15)
[2017-04-22] MEDS: GEMFIBROZIL 600 MG TAB PO SCH ×2 (08:15→21:16)
[2017-04-22] MEDS: amLODIPine 5 MG TAB PO SCH (08:15)
[2017-04-22] MEDS: ENALAPRIL 10 MG TAB PO SCH (08:15)
[2017-04-22] MEDS: METOPROLOL 50 MG TAB PO SCH ×2 (08:16→21:16)
[2017-04-22] MEDS: ECOTRIN 81 MG TABEC PO SCH (08:16)
[2017-04-22] MEDS: LACTOBACILLUS RHAMNOSUS GG 1 EACH CAP PO SCH (08:16)
[2017-04-22] MEDS: CELECOXIB 100 MG CAP PO SCH (08:16)
[2017-04-22] MEDS: LORazepam 0.5 MG TAB PO SCH (08:16)
[2017-04-22] MEDS: PATIENTS OWN TABLET PO SCH (08:17)
[2017-04-22] MEDS: ANASTROZOLE 1 MG TAB PO SCH (08:18)
[2017-04-22] MEDS: METHYLDOPA 250 MG TAB PO SCH (08:18)
[2017-04-22] MEDS: RIVAROXABAN 10 MG TAB PO SCH (08:19)
[2017-04-22] MEDS: NACL 0.9% 1,000 ML IV SCH (08:50)
--- NOTE | 2017-04-22 09:00 | NUR ---
PT TOLERATED MORNING MEDS WELL. EDUCATION GIVEN. CALL LIGHT WITHIN REACH. WILL CONTINUE TO MONITOR.
--- NOTE | 2017-04-22 09:30 | NUR ---
TRANSFERRED TO [facility]. RETURNED TELE BOX. CALL LIGHT WITHIN REACH. WILL CONTINUE TO MONITOR.
--- NOTE | 2017-04-22 10:00 | NUR ---
PT TOOK A SHOWER. TOLERATED WELL. CALL LIGHT WITHIN REACH. WILL CONTINUE TO MONITOR.
[2017-04-22] MEDS: LEVOFLOXACIN 500 MG/D5W PREMIX 100 ML IV SCH (11:30)
--- NOTE | 2017-04-22 11:41 | NUR ---
04/22/17 RD INITIAL ASSESSMENT COMPLETED PLEASE REFER TO NUTRITION ASSESSMENT UNDER CARE ACTIVITY FOR ESTIMATED NUTRITIONAL NEEDS. RD RECOMMENDATIONS: 1. CONTINUE CCHO 60 GM DIET TOLERATED PER MD 2. IF/WHEN PT AVERAGE >50% PO INTAKE CONSIDER ADDING 2GM NA FOR HTN. --RD PROVIDED PT WITH DM DIET EDUCATION 3. ENCOURAGE INCREASED PO INTAKES 4. RD WILL F/U 3-5 DAYS; MODERATE RISK. NAHUM LOWERY RD
--- NOTE | 2017-04-22 11:41 | NUR ---
PT RESTING IN BED. CALL LIGHT WITHIN REACH. WILL CONTINUE TO MONITOR.
[2017-04-22] MEDS ORDERED: MAGNESIUM OXIDE 400 MG TAB PO SCH (12:00)
--- NOTE | 2017-04-22 13:30 | NUR ---
ADMINISTER PAIN MED FOR R ARM PAIN. PT TOLERATED WELL. CALL LIGHT WITHIN REACH. WILL CONTINUE TO MONITOR.
[2017-04-22] MEDS: ACETAMINOPHEN 325 MG TAB PO PRN (13:38)
--- NOTE | 2017-04-22 15:00 | NUR ---
NOLVIA VISITING AT BEDSIDE. CHANGED IV DSG. TOLERATED WELL. CALL LIGHT WITHIN REACH. WILL CONTINUE TO MONITOR.
[2017-04-22 16:00] VITALS: BP 122/77
--- NOTE | 2017-04-22 17:03 | NUR ---
PT IS RESTING COMFORTABLY IN BED. CALL LIGHT WITHIN REACH. WILL CONTINUE TO MONITOR.
--- NOTE | 2017-04-22 18:30 | NUR ---
ORDERED AND DELIVERED A SANDWICH TO PT DUE TO PT'S DISLIKE FOR DINNER TRAY.
--- NOTE | 2017-04-22 19:17 | NUR ---
ENDORSED CARE OF PT TO SHRIMP PICKER NURSE AT BEDSIDE. PT IN STABLE CONDITION.
--- NOTE | 2017-04-22 19:26 | NUR ---
RECEIVED FROM AM RN IN BED SITTING UP AWAKE AND ALERT. NO SOB. DENIES PAIN AT THIS TIME. DX. OF RIGHT ARM CELLULITIS. IVF SITE TO LAC #20 INTACT AND NO INFILTRATION NOTED. CALL LIGHT WITH IN REACH AND CARE PLANS FOR THE NIGHT DISCUSSED WITH HER.
--- NOTE | 2017-04-22 22:35 | NUR ---
SLEEPING. NO COMPLAINTS DONE. SLEEPING WELL AT THIS TIME.
[2017-04-23 00:40] VITALS: BP 140/67
--- NOTE | 2017-04-23 00:42 | NUR ---
PT. AWAKE AT THIS TIME AND WATCHING TV. DENIES PAIN. IVF SITE INTACT AND NO INFILTRATION NOTED. CALL LIGHT WITH IN REACH.
--- NOTE | 2017-04-23 01:00 | NUR ---
PT. SLEEPING BACK. NO RESTLESSNESS NOTED.
--- NOTE | 2017-04-23 04:49 | NUR ---
SLEEPING STILL. CALL LIGHT WITH IN REACH AT ALL TIMES.
[2017-04-23] MEDS: BLOOD GLUCOSE MONITORING 1 DEV DEV FS SCH ×2 (05:37→11:30)
[2017-04-23] MEDS: CLINDAMYCIN 600 MG in DEXTROSE 5% 50 ML IV SCH (05:37)
[2017-04-23] MEDS: INSULIN LISPRO SLIDING SCALE 100 UNITS/ML VIAL SUBQ PRN (05:41)
[2017-04-23 06:53] LABS: CARBON DIOXIDE 29.2 mmol/L (21-32); CREATININE 0.6 mg/dL (0.6-1.3); POTASSIUM 4.2 mmol/L (3.5-5.1)
[2017-04-23 06:54] LABS: BASOPHILS # (AUTO) 0.2 K/uL (0.00-0.22); BASOPHILS % (AUTO) 3.3 % (0.0-2.0); EOSINOPHILS # (AUTO) 0.2 K/uL (0-0.4); EOSINOPHILS % (AUTO) 4.1 % (0.0-4.0); HEMATOCRIT 39.2 % (36-48); HEMOGLOBIN 13.2 g/dL (12.0-16.0); LYMPHOCYTES # (AUTO) 1.5 K/uL (2.5-16.5); LYMPHOCYTES % (AUTO) 31.6 % (20.5-51.1); MEAN CORPUSCULAR HEMOGLOBIN 31 pg (27-31); MEAN CORPUSCULAR HGB CONC 34 g/dL (33-37); MEAN CORPUSCULAR VOLUME 91 fL (80-94); MONOCYTES # (AUTO) 0.4 K/uL (0.8-1.0); MONOCYTES % (AUTO) 9.2 % (1.7-9.3); NEUTROPHILS # (AUTO) 2.4 K/uL (1.8-7.7); NEUTROPHILS % (AUTO) 51.8 % (42.2-75.2); PLATELET COUNT (AUTO) 167 K/uL (140-450); RED BLOOD CELL COUNT(AUTO) 4.33 MIL/uL (4.20-5.40); WHITE BLOOD COUNT (AUTO) 4.7 K/uL (4.8-10.8)
[2017-04-23 07:01] LABS: MAGNESIUM 1.7 mg/dL (1.8-2.4); PHOSPHORUS 4.1 mg/dL (2.5-4.9)
--- NOTE | 2017-04-23 07:21 | NUR ---
RECEIVED PT REPORT AT BEDSIDE FROM NIGHT NURSE. PT IS AAOX4 AND SHOWS NO S/S OF DISTRESS ON ROOM AIR. NOTED PT'S RIGHT ARM EDEMATOUS WITH MINIMAL REDNESS. PT DENIES PAIN. PT HAS IV ON THE L AC WITH IVF'S INFUSING WELL. PT SKIN IS INTACT. PT IS AWARE OF POC FOR TODAY AND VERBALIZED UNDERSTANDING. THE BED IS LOWERED WITH CALL LIGHT WITHIN REACH.
--- NOTE | 2017-04-23 07:21 | NUR ---
ENDORSED TO THE NEXT RN FOR CONTINUITY OF CARE. AWAKE AND ALERT. ORIENTED X 3. VERBALIZES WELL. NO SOB.
--- NOTE | 2017-04-23 07:40 | NUR ---
PT IS BEING SEEN BY DR DIGGS.
[2017-04-23 08:00] VITALS: BP 154/76
--- NOTE | 2017-04-23 08:00 | NUR ---
SPOKE WITH DR VELEZ REGARDING PT MAGNESIUM OF 1.7.
[2017-04-23] MEDS: ANASTROZOLE 1 MG TAB PO SCH (08:12)
[2017-04-23] MEDS: GEMFIBROZIL 600 MG TAB PO SCH (08:12)
[2017-04-23] MEDS: METOPROLOL 50 MG TAB PO SCH (08:12)
--- NOTE | 2017-04-23 08:12 | NUR ---
ADMINISTERED SCHEDULED MEDICATIONS. PT TOLERATED ACTIVITY WELL. PT DENIES PAIN. WILL CONTINUE TO MONITOR.
[2017-04-23] MEDS: LORazepam 0.5 MG TAB PO SCH (08:13)
[2017-04-23] MEDS: amLODIPine 5 MG TAB PO SCH (08:13)
[2017-04-23] MEDS: ATORVASTATIN 20 MG TAB PO SCH (08:13)
[2017-04-23] MEDS: CELECOXIB 100 MG CAP PO SCH (08:14)
[2017-04-23] MEDS: LACTOBACILLUS RHAMNOSUS GG 1 EACH CAP PO SCH (08:14)
[2017-04-23] MEDS: ECOTRIN 81 MG TABEC PO SCH (08:14)
[2017-04-23] MEDS: PATIENTS OWN TABLET PO SCH (08:15)
[2017-04-23] MEDS: METHYLDOPA 250 MG TAB PO SCH (08:16)
[2017-04-23] MEDS: NACL 0.9% 1,000 ML IV SCH (08:16)
[2017-04-23] MEDS: RIVAROXABAN 10 MG TAB PO SCH (08:20)
[2017-04-23] MEDS ORDERED: LEVO500T22 PO (08:30)
[2017-04-23] MEDS ORDERED: CLIN150C1 PO (08:34)
[2017-04-23] MEDS ORDERED: CLIN300C2 PO (08:59)
[2017-04-23] MEDS ORDERED: LACT1CAP63 PO (09:01)
[2017-04-23 09:02] LABS: HEMOGLOBIN A1C 7.3 % (4.8-5.6)
[2017-04-23] MEDS ORDERED: MAGNESIUM OXIDE 400 MG TAB PO SCH (09:15)
--- NOTE | 2017-04-23 10:30 | NUR ---
PT IS IN BED AND SHOWS NO S/S OF DISTRESS ON ROOM AIR. ADMINISTERED DAILY VASOTEC 20MG PO. PT BP IS 125/64 HR 70. PT DENIES PAIN AND SOB.
[2017-04-23] MEDS: ENALAPRIL 10 MG TAB PO SCH (10:51)
--- NOTE | 2017-04-23 11:40 | NUR ---
PT HAS BEEN DISCHARGED. DISCHARGE INSTRUCTIONS AND PRESCRIPTIONS GIVEN. ALL PAPERWORK SIGNED. ALL QUESTIONS ANSWERED. ALL BELONGINGS AND PRESCRIPTIONS IN PT POSSESSION. IV DISCONTINUED WITH CANNULA INTACT. WRISTBANDS REMOVED. OFFERED PT WHEELCHAIR, PT REFUSED. PT AMB OUT OF UNIT WITH STEADY GAIT AND WITH FAMILY PRESENT AT SIDE. PT IN STABLE CONDITION.
== END 2017-04-23 11:40 | disposition home or self-care (01) | DRG 720 ==
LOC: MED 18:08 → MTU 21:32
PROVIDERS: ADMIT Family Medicine; ATTEND Family Medicine
DX: A41.9 Sepsis, unspecified organism (principal); D68.59 Other primary thrombophilia; E11.51 Type 2 diabetes mellitus with diabetic peripheral angiopathy without gangrene; E11.65 Type 2 diabetes mellitus with hyperglycemia; E83.42 Hypomagnesemia; L03.113 Cellulitis of right upper limb; I10 Essential (primary) hypertension; E78.5 Hyperlipidemia, unspecified; E87.6 Hypokalemia; Z86.718 Personal history of other venous thrombosis and embolism; Z79.899 Other long term (current) drug therapy; Z85.89 Personal history of malignant neoplasm of other organs and systems; Z90.11 Acquired absence of right breast and nipple; Z85.3 Personal history of malignant neoplasm of breast; Z90.49 Acquired absence of other specified parts of digestive tract; Z79.82 Long term (current) use of aspirin; Z79.84 Long term (current) use of oral hypoglycemic drugs
CPT/HCPCS: 36415; 71010; 80048; 80053; 80305; 81001; 82150; 82553; 82948; 83036; 83605; 83690; 83735; 83880; 84100; 84436; 84439; 84443; 84479; 84484; 85025; 85379; 85610; 85651; 85730; 87040; 87081; 93005; 93925; 93970; 93971; 96361; 96374; 96375; 99285; J1815; J1885; J1956; J2060; J3490; J7030; J7060; Q0092

== ENCOUNTER 2017-07-14 18:49 | Inpatient (IN) | payer MEDICAID ==
[~2017-07-14] VITALS: Ht 160 cm; Wt 68.0 kg
[~2017-07-14 18:49] MED LIST changes: -LACT-2; +LACT1CAP63 PO; +LEVO500T2 PO
[2017-07-14 19:09] VITALS: BP 136/75
--- NOTE | 2017-07-14 19:53 | NUR ---
PT TAKEN TO BED 3
--- NOTE | 2017-07-14 19:58 | NUR ---
57F BIB FAMILY C/O RT ARM PAIN, SHARP, NON-RADIATING, 06/30 X 2 DAYS; ERYTHEMA AND SWELLING NOTED TO RT ARM AT THIS TIME; RT ARM HOT TO TOUCH; RT RADIAL PULSE PALPABLE, RT CAP REFILL < 2 SECONDS, NO LOSS OF SENSATION OR LOSS OF ROM TO RT ARM AT THIS TIME; PT AA&OX4, BL LUNG SOUNDS CLEAR, RR EVEN/UNLABORED, SKIN IS WARM/DRY/INTACT AT THIS TIME; PT STATES NO N/V/D AT THIS TIME; STEADY GAIT; PT RESTING IN BED WITH HOB ELEVATED AND IN LOWEST POSITION; POSITIONED FOR COMFORT; ER MD MADE AWARE OF STATUS. WILL CONTINUE TO MONITOR.
--- NOTE | 2017-07-14 20:07 | NUR ---
LAB AT BEDSIDE.
--- NOTE | 2017-07-14 20:19 | NUR ---
Dr. Salter evaluating patient at bedside.
[2017-07-14 20:21] LABS: HEMOGLOBIN 14.1 g/dL (12.0-16.0)
[2017-07-14 20:24] LABS: HEMATOCRIT 40.6 % (36-48); MEAN CORPUSCULAR HEMOGLOBIN 31 pg (27-31); MEAN CORPUSCULAR HGB CONC 35 g/dL (33-37); MEAN CORPUSCULAR VOLUME 89 fL (80-94); PLATELET COUNT (AUTO) 155 K/uL (140-450); RED BLOOD CELL COUNT(AUTO) 4.56 MIL/uL (4.20-5.40); WHITE BLOOD COUNT (AUTO) 17.4 K/uL (4.8-10.8)
[2017-07-14] MEDS ORDERED: NACL 0.9% 1,000 ML IV ONE (20:25)
[2017-07-14] MEDS ORDERED: CLINDAMYCIN 900 MG in DEXTROSE 5% 100 ML IV ONE (20:25)
[2017-07-14 20:37] LABS: ANION GAP 15.7 (8-16); CARBON DIOXIDE 25.8 mmol/L (21-32); CREATININE 0.7 mg/dL (0.6-1.3); POTASSIUM 3.5 mmol/L (3.5-5.1); TOTAL BILIRUBIN 0.5 mg/dL (0.0-1.0)
[2017-07-14 20:40] LABS: EOSINOPHILS % (MANUAL) 2 % (0-4); LYMPHOCYTES % (MANUAL) 6 % (20-46); MONOCYTES % (MANUAL) 1 % (5-12)
[2017-07-14] MEDS ORDERED: CLINDAMYCIN 900 MG/6 ML VIAL IV ONE (20:43)
[2017-07-14] MEDS ORDERED: KETOROLAC 30 MG/ML VIAL IVP ONE (20:45)
--- NOTE | 2017-07-14 20:58 | NUR ---
XRAY AT BEDSIDE.
--- NOTE | 2017-07-14 21:09 | NUR ---
Stephany piedra in [facility] - 07/14/17 at 2110 by JEFF X-Ray at bedside.
[2017-07-14] MEDS ORDERED: PIPERACILLIN/TAZOBACTAM 3.375 GM in DEXTROSE 5% 50 ML IV ONE (21:20)
[2017-07-14] MEDS ORDERED: PIPERACILLIN/TAZOBACTAM 3.375 GM VIAL IV ONE (21:32)
--- NOTE | 2017-07-14 22:04 | NUR ---
REPORT GIVEN TO WALLY BONNER.
[2017-07-14] MEDS ORDERED: ONDANSETRON 4 MG/2 ML VIAL IVP PRN ×2 (22:20→22:30)
[2017-07-14] MEDS ORDERED: DEXTROSE 50% 50 ML SYR IVP PRN ×2 (22:20→22:30)
[2017-07-14] MEDS ORDERED: LORazepam 2 MG/ML VIAL IVP PRN ×2 (22:20→22:30)
[2017-07-14] MEDS ORDERED: HYDROcodone/APAP 5/325 MG 1 TAB TAB PO PRN ×2 (22:20→22:30)
[2017-07-14] MEDS ORDERED: ACETAMINOPHEN 325 MG TAB PO PRN (22:20)
[2017-07-14] MEDS ORDERED: INSULIN LISPRO SLIDING SCALE 100 UNITS/ML VIAL SUBQ PRN (22:20)
[2017-07-14] MEDS ORDERED: MORPHINE SULFATE 2 MG/ML SYR IVP PRN ×2 (22:20→22:30)
--- NOTE | 2017-07-14 22:20 | NUR ---
Patient will be admitted to care of DR. Sybil TIPTON. Admited to TELEMETRY. Will go to room 111B. Belongings list completed. Report to WALLY BONNER.
--- NOTE | 2017-07-14 22:35 | NUR ---
ADMITTED THIS 57 YEAR OLD FEMALE FROM ER PER VINCENT WITH CC OF RT ARM CELLULITIS, AMBULATED TO BED WITH STEADY GAIT, ASSESSMENT DONE, VITAL SIGNS STABLE, DENIES ANY PAIN, RT ARM SWOLLEN AND RED, WARM AND TENDER TO TOUCH, SKIN INTACT, RT ELEVATED WITH PILLOW, ORIENTED TO ROOM AND CALL LIGHT, PLAN OF CARE DISCUSSED, SAFETY MEASURES IN PLACE, CALL LIGHT WITHIN REACH.
[2017-07-14 23:00] VITALS: BP 121/69
--- NOTE | 2017-07-15 00:30 | NUR ---
PT SLEEPING, NO SIGNS OF DISTRESS, CONTINUE TO MONITOR CLOSELY.
--- NOTE | 2017-07-15 01:26 | NUR ---
PT AMBULATED TO BR WITH STEADY GAIT AND VOIDED FREELY, DENIES ANY PAIN, MONITORED CLOSELY.
[2017-07-15] MEDS ORDERED: PIPERACILLIN/TAZOBACTAM 3.375 GM VIAL IV ONE (04:12)
--- NOTE | 2017-07-15 04:30 | NUR ---
PT SLEEPING, EASILY AROUSABLE, DENIES ANY PAIN, DUE ZOSYN IVPB ADMINISTERED, MONITORED CLOSELY.
[2017-07-15] MEDS ORDERED: PIPERACILLIN/TAZOBACTAM 3.375 GM in DEXTROSE 5% 50 ML IV SCH ×4 (05:00)
[2017-07-15] MEDS: INSULIN LISPRO SLIDING SCALE 100 UNITS/ML VIAL SUBQ PRN ×3 (05:59→21:57)
--- NOTE | 2017-07-15 06:00 | NUR ---
AM LABS DRAWN, BLOOD SUGAR CHECKED WITH 166 RESULT, COVERAGE GIVEN, AM AND ORAL CARE DONE INDEPENDENTLY, DENIES ANY PAIN AT THIS TIME, MONITORED CLOSELY.
[2017-07-15 06:10] LABS: BASOPHILS # (AUTO) 0.3 K/uL (0.00-0.22); BASOPHILS % (AUTO) 2.1 % (0.0-2.0); EOSINOPHILS % (AUTO) 0.4 % (0.0-4.0); HEMATOCRIT 39.7 % (36-48); HEMOGLOBIN 13.7 g/dL (12.0-16.0); LYMPHOCYTES # (AUTO) 0.9 K/uL (2.5-16.5); LYMPHOCYTES % (AUTO) 7.3 % (20.5-51.1); MEAN CORPUSCULAR HEMOGLOBIN 31 pg (27-31); MEAN CORPUSCULAR HGB CONC 35 g/dL (33-37); MEAN CORPUSCULAR VOLUME 91 fL (80-94); MONOCYTES # (AUTO) 0.2 K/uL (0.8-1.0); MONOCYTES % (AUTO) 1.4 % (1.7-9.3); NEUTROPHILS # (AUTO) 10.7 K/uL (1.8-7.7); NEUTROPHILS % (AUTO) 88.8 % (42.2-75.2); PLATELET COUNT (AUTO) 128 K/uL (140-450); RED BLOOD CELL COUNT(AUTO) 4.36 MIL/uL (4.20-5.40); RED CELL DISTRIBUTION WIDTH 11.6 % (11.6-13.7)
[2017-07-15 06:31] LABS: ALBUMIN 3.6 g/dL (3.4-5.0); ANION GAP 12.8 (8-16); CARBON DIOXIDE 28.6 mmol/L (21-32); CREATININE 0.8 mg/dL (0.6-1.3); POTASSIUM 3.4 mmol/L (3.5-5.1)
[2017-07-15] MEDS: BLOOD GLUCOSE MONITORING 1 DEV DEV FS SCH ×4 (06:40→21:53)
--- NOTE | 2017-07-15 07:17 | NUR ---
PT AWAKE, NO SIGNS OF DISTRESS, REPORT GIVEN TO WALLY DHILLON FOR CONTINUITY OF CARE.
--- NOTE | 2017-07-15 07:18 | NUR ---
RECEIVED HANDOFF REPORT FROM PM RN. PATIENT A&OX4. PATIENT AWAKE IN BED. PATIENT DENIES PAIN. IV SITE PATENT AND INTACT. NO SIGNS OR SYMPTOMS OF ACUTE DISTRESS NOTED. CALL LIGHT WITHIN REACH WILL CONTINUE TO MONITOR.
[2017-07-15] MEDS ORDERED: BLOOD GLUCOSE MONITORING 1 DEV DEV FS SCH (07:30)
[2017-07-15 07:39] LABS: WHITE BLOOD COUNT (AUTO) 12.1 K/uL (4.8-10.8)
[2017-07-15 08:00] VITALS: BP_SYST 107; BP_SYST 130; BP_DIAS 43; BP_DIAS 68
[2017-07-15] MEDS: amLODIPine 5 MG TAB PO SCH (08:33)
[2017-07-15] MEDS: ECOTRIN 81 MG TABEC PO SCH (08:33)
[2017-07-15] MEDS: GEMFIBROZIL 600 MG TAB PO SCH ×2 (08:33→21:41)
[2017-07-15] MEDS: CELECOXIB 100 MG CAP PO SCH (08:33)
[2017-07-15] MEDS: METOPROLOL 50 MG TAB PO SCH ×2 (08:34→21:41)
[2017-07-15] MEDS: LACTOBACILLUS RHAMNOSUS GG 1 EACH CAP PO SCH (08:34)
[2017-07-15] MEDS: metFORMIN 500 MG TAB PO SCH ×2 (08:34→17:23)
[2017-07-15] MEDS: LORazepam 0.5 MG TAB PO SCH (08:34)
[2017-07-15] MEDS: ANASTROZOLE 1 MG TAB PO SCH (08:35)
--- NOTE | 2017-07-15 08:35 | NUR ---
AM MEDS GIVEN. PATIENT VERBALIZED UNDERSTANDING. PATIENT DENIES PAIN. NO SIGNS OR SYMPTOMS OF ACUTE DISTRESS NOTED. CALL LIGHT WITHIN REACH. WILL CONTINUE TO MONITOR.
[2017-07-15] MEDS: METHYLDOPA 250 MG TAB PO SCH (08:36)
[2017-07-15] MEDS: RIVAROXABAN 10 MG TAB PO SCH (08:40)
[2017-07-15] MEDS: ENALAPRIL 10 MG TAB PO SCH (08:41)
[2017-07-15] MEDS ORDERED: RIVAROXABAN 10 MG TAB PO SCH (09:00)
[2017-07-15] MEDS ORDERED: GEMFIBROZIL 600 MG TAB PO SCH (09:00)
[2017-07-15] MEDS ORDERED: LORazepam 0.5 MG TAB PO SCH (09:00)
[2017-07-15] MEDS ORDERED: METHYLDOPA 250 MG TAB PO SCH (09:00)
[2017-07-15] MEDS ORDERED: ECOTRIN 81 MG TABEC PO SCH (09:00)
[2017-07-15] MEDS ORDERED: amLODIPine 5 MG TAB PO SCH (09:00)
[2017-07-15] MEDS ORDERED: ANASTROZOLE 1 MG TAB PO SCH (09:00)
[2017-07-15] MEDS ORDERED: metFORMIN 500 MG TAB PO SCH (09:00)
[2017-07-15] MEDS ORDERED: NON-FORMULARY ITEM (Meloxicam* (Mobic*) 7.5 MG) PO SCH ×2 (09:00)
[2017-07-15] MEDS ORDERED: SAXAGLIPTIN HCL 5 MG PO SCH ×2 (09:00)
[2017-07-15] MEDS ORDERED: METOPROLOL 50 MG TAB PO SCH (09:00)
[2017-07-15] MEDS ORDERED: NON-FORMULARY ITEM (Lactobacillus Acidophilus (Probiotic) 1 EACH) PO SCH ×2 (09:00)
[2017-07-15] MEDS ORDERED: ENALAPRIL 10 MG TAB PO SCH (09:00)
--- NOTE | 2017-07-15 09:00 | NUR ---
WOUND CARE NOTE: REASON FOR EVALUATION: RIGHT ARM CELLULITIS COMPLETE SKIN ASSESSMENT DONE ON THIS 57 Y/O FEMALE ADMITTED FROM HOME TO [facility] WITH INITIAL DX: OF BURNING PAIN ON RIGHT ARM, PAST MEDICAL HX: DM, HTN, CARDIAC DISORDER AND HX OF BREAST CA 2011.ABOVE INFORMATION OBTAINED FROM PT AND ADMISSION H&P. LABS ARE WBC 17.4, H/H 14.1/40.6, GLUCOSE 172, ALBUMIN 3.6. MEDICATIONS INCLUDES PIPERACILLIN, ATORVASTATIN, CELECOXIB, AMLODIPINE, RIVAROXABAN AND LISPRO INSULIN. X-RAY FROM RIGHT HUMERUS TO RIGHT FOREARM DONE. PT. IS AAOX4, SKIN WARM AND DRY TO TOUCH, SKIN INTACT, WNL, BLE HAIR GROWTH, DORSAL PEDAL PULSES PRESENT AND STRONG. AMBULATORY WIT BRP. PLAN OF CARE DISCUSSED TO PT AND PRIMARY RN. PT VERBALIZES UNDERSTANDING. INTEGUMENTARY: RIGHT UPPER EXTREMITY FROM UPPER HUMERUS TO FINGERS WARM WITH EDEMA AND ERYTHEMA, PAIN LEVEL 3/10. SKIN INTACT LEFT AC WITH PERIPHERAL IV HEP LOCK. IV SITE NO S/S INFILTRATION RECOMMENDATIONS: -KEEP RIGHT UPPER EXTREMITY ELEVATED AT ALL TIME -CONTINUE ANTIBIOTIC ORDERED -KEEP SKIN DRY AND CLEAN AT ALL TIME RECOMMENDATIONS DISCUSSED WITH PT AND PRIMARY RN NO NEED FOR FOLLOW UP RE-EVALUATION
--- NOTE | 2017-07-15 11:04 | NUR ---
PATIENT HAS BEEN SCREENED AND CATEGORIZED MODERATE NUTRITION RISK. PATIENT WILL BE SEEN WITHIN 3-5 DAYS OF ADMISSION. 07/17/17 - 07/19/[address]
--- NOTE | 2017-07-15 12:47 | NUR ---
PATIENT GIVEN AFTERNOON MEDS. PATIENT VERBALIZED UNDERSTANDING. PATIENT DENIES PAIN. NO SIGNS OR SYMPTOMS OF ACUTE DISTRESS NOTED. CALL LIGHT WITHIN REACH. WILL CONTINUE TO MONITOR.
[2017-07-15] MEDS ORDERED: PIPER/TAZO 3.375GM/D5W PREMIX 50 ML IV SCH (13:00)
[2017-07-15] MEDS ORDERED: POTASSIUM CHLORIDE 10 MEQ TABER PO SCH (13:21)
--- NOTE | 2017-07-15 15:45 | NUR ---
PATIENT AWAKE AND ALERT. PATIENT FAMILY AT BEDSIDE. PATIENT DENIES PAIN. NO SIGNS OR SYMPTOMS OF ACUTE DISTRESS NOTED. CALL LIGHT WITHIN REACH. WILL CONTINUE TO MONITOR.
[2017-07-15 16:00] VITALS: BP 109/60
--- NOTE | 2017-07-15 19:27 | NUR ---
ENDORSED PLAN OF CARE TO PM RN. PATIENT IN STABLE CONDITION. NO SIGNS OR SYMPTOMS OF ACUTE DISTRESS NOTED. CALL LIGHT WITHIN REACH.
--- NOTE | 2017-07-15 19:28 | NUR ---
RECEIVED PATIENT REPORT FROM MORNING NURSE. PATIENT IS AWAKE, ALERT AND ORIENTED. PATIENT'S FAMILY IS AT BEDSIDE. NO SIGNS AND SYMPTOMS OF DISTRESS NOTED. NO COMPLAINTS OF PAIN AT THIS TIME. IV SITE NOTED ON LEFT AC, SALINE LOCKED. BED IN LOWEST POSITION, BURNS'S POSITION, SIDE RAILS UP AND CALL LIGHT WITHIN REACH. WILL CONTINUE TO MONITOR.
[2017-07-15] MEDS ORDERED: ATORVASTATIN 20 MG TAB PO SCH (21:00)
--- NOTE | 2017-07-15 21:30 | NUR ---
PATIENT SEEN BY DR. LEDEZMA. NEW ORDERS RECEIVED
[2017-07-15] MEDS: ACETAMINOPHEN 325 MG TAB PO PRN (21:42)
[2017-07-15] MEDS: ATORVASTATIN 20 MG TAB PO SCH (21:42)
[2017-07-15] MEDS ORDERED: CLINDAMYCIN 600 MG/4 ML VIAL ONE (23:28)
[2017-07-15] MEDS: CLINDAMYCIN 600 MG in DEXTROSE 5% 50 ML IV SCH (23:35)
[2017-07-16] VITALS: BP 122/62
[2017-07-16] MEDS ORDERED: CLINDAMYCIN 600 MG/4 ML VIAL ONE (05:22)
[2017-07-16] MEDS: CLINDAMYCIN 600 MG in DEXTROSE 5% 50 ML IV SCH ×4 (05:23→23:53)
[2017-07-16] MEDS: BLOOD GLUCOSE MONITORING 1 DEV DEV FS SCH ×4 (06:56→21:24)
--- NOTE | 2017-07-16 07:12 | NUR ---
PATIENT REPORT GIVEN TO MORNING NURSE. PATIENT IN STABLE CONDITION
--- NOTE | 2017-07-16 07:13 | NUR ---
RECEIVED HANDOFF REPORT FROM PM RN. PATIENT A&OX4. PATIENT DENIES PAIN. IV SITE PATENT AND INTACT. NO SIGNS OR SYMPTOMS OF ACUTE DISTRESWS NOTED CALL LIGHT WITHIN REACH WILL CONTINUE TO MONITOR.
[2017-07-16 07:50] VITALS: BP 136/73
[2017-07-16 07:57] LABS: HEMATOCRIT 42.3 % (36-48); HEMOGLOBIN 14.2 g/dL (12.0-16.0); MEAN CORPUSCULAR HEMOGLOBIN 31 pg (27-31); MEAN CORPUSCULAR HGB CONC 34 g/dL (33-37); MEAN CORPUSCULAR VOLUME 91 fL (80-94); PLATELET COUNT (AUTO) 124 K/uL (140-450); RED BLOOD CELL COUNT(AUTO) 4.66 MIL/uL (4.20-5.40); RED CELL DISTRIBUTION WIDTH 12.1 % (11.6-13.7); WHITE BLOOD COUNT (AUTO) 8.8 K/uL (4.8-10.8)
[2017-07-16 08:20] LABS: LYMPHOCYTES % (MANUAL) 33 % (20-46); MONOCYTES % (MANUAL) 6 % (5-12)
[2017-07-16 08:34] LABS: ANION GAP 16.4 (8-16); CARBON DIOXIDE 24.8 mmol/L (21-32); CREATININE 0.6 mg/dL (0.6-1.3); POTASSIUM 4.2 mmol/L (3.5-5.1)
[2017-07-16] MEDS: LORazepam 0.5 MG TAB PO SCH (08:55)
[2017-07-16] MEDS: metFORMIN 500 MG TAB PO SCH ×2 (08:55→16:37)
[2017-07-16] MEDS: LACTOBACILLUS RHAMNOSUS GG 1 EACH CAP PO SCH (08:56)
[2017-07-16] MEDS: GEMFIBROZIL 600 MG TAB PO SCH ×2 (08:56→21:10)
[2017-07-16] MEDS: METOPROLOL 50 MG TAB PO SCH ×2 (08:56→21:11)
[2017-07-16] MEDS: ECOTRIN 81 MG TABEC PO SCH (08:56)
[2017-07-16] MEDS: CELECOXIB 100 MG CAP PO SCH (08:56)
[2017-07-16] MEDS: amLODIPine 5 MG TAB PO SCH (08:57)
[2017-07-16] MEDS: ENALAPRIL 10 MG TAB PO SCH (08:57)
--- NOTE | 2017-07-16 08:59 | NUR ---
AM MEDS GIVEN WITH EDUCATION. PATIENT VERBALIZED UNDERSTANDING. PATIENT OTF PAIN. NO SIGNS OR SYMPTOMS OF ACUTE DISTRESS NOTED. CALL LIGHT WITHIN REACH. WILL CONTINUE TO MONITOR.
[2017-07-16] MEDS: METHYLDOPA 250 MG TAB PO SCH (09:40)
[2017-07-16] MEDS: ANASTROZOLE 1 MG TAB PO SCH (09:40)
[2017-07-16] MEDS: RIVAROXABAN 10 MG TAB PO SCH (09:42)
[2017-07-16] MEDS: ACETAMINOPHEN 325 MG TAB PO PRN ×3 (12:17→21:44)
[2017-07-16] MEDS: INSULIN LISPRO SLIDING SCALE 100 UNITS/ML VIAL SUBQ PRN ×3 (12:25→21:29)
--- NOTE | 2017-07-16 12:40 | NUR ---
IV OUT. WILL START NEW ONE. PATIENT AWAKE AND ALERT IN BED. PATIENT DENIES PAIN. NO SIGNS AND SYMPTOMS OF ACUTE DISTRESS NOTED. CALL LIGHT WITHIN REACH. WILL CONTINUE TO MONITOR.
--- NOTE | 2017-07-16 15:09 | NUR ---
PATIENT AWAKE IN BED WATCHING TV. PATIENT DENIES PAIN. NO SIGNS OR SYMPTOMS OF ACUTE DISTRESS NOTED. CALL LIGHT WITHIN REACH.WILL CONTINUE TO MONITOR.
[2017-07-16 16:00] VITALS: BP 108/58
--- NOTE | 2017-07-16 19:32 | NUR ---
ENDORSED PLAN OF CARE TO PM RN. PATIENT IN STABLE CONDITION. NO SIGNS OR SYMPTOMS OF ACUTE DISTRESS NOTED.
--- NOTE | 2017-07-16 19:33 | NUR ---
RECEIVED PATIENT REPORT FROM MORNING NURSE. PATIENT IS AWAKE, ALERT, AND ORIENTED. PATIENTS FAMILY IS AT BEDSIDE. NO SIGNS AND SYMPTOMS OF DISTRESS NOTED. NO COMPLAINTS OF PAIN AT THIS TIME. BED IS IN LOWEST POSITION, SIDE RAILS UP AND CALL LIGHT WITHIN REACH. WILL CONTINUE TO MONITOR.
[2017-07-16] MEDS: ATORVASTATIN 20 MG TAB PO SCH (21:10)
[2017-07-17] VITALS: BP 131/72
--- NOTE | 2017-07-17 | NUR ---
CHECKED ON PATIENT, PATIENT IS ASLEEP. NO SIGNS AND SYMPTOMS OF DISTRESS NOTED
[2017-07-17] MEDS: CLINDAMYCIN 600 MG in DEXTROSE 5% 50 ML IV SCH (06:00)
[2017-07-17] MEDS: ACETAMINOPHEN 325 MG TAB PO PRN ×2 (06:02→11:33)
--- NOTE | 2017-07-17 06:30 | NUR ---
IV SITE ON LEFT HAND, INFILTRATED. IV DISCONTINUED, IV CANNULA INTACT. NEW IV SITE INSERTED ON LEFT FOREARM, 22 GAUGE. NEW IV SITE, ASYMPTOMATIC, INTACT, PATENT
[2017-07-17 06:39] LABS: BASOPHILS # (AUTO) 0.1 K/uL (0.00-0.22); BASOPHILS % (AUTO) 1.6 % (0.0-2.0); EOSINOPHILS # (AUTO) 0.2 K/uL (0-0.4); EOSINOPHILS % (AUTO) 4.1 % (0.0-4.0); HEMATOCRIT 38.1 % (36-48); HEMOGLOBIN 13.1 g/dL (12.0-16.0); LYMPHOCYTES # (AUTO) 1.7 K/uL (2.5-16.5); LYMPHOCYTES % (AUTO) 35.7 % (20.5-51.1); MEAN CORPUSCULAR HEMOGLOBIN 31 pg (27-31); MEAN CORPUSCULAR HGB CONC 35 g/dL (33-37); MEAN CORPUSCULAR VOLUME 91 fL (80-94); MONOCYTES # (AUTO) 0.5 K/uL (0.8-1.0); MONOCYTES % (AUTO) 9.7 % (1.7-9.3); NEUTROPHILS # (AUTO) 2.2 K/uL (1.8-7.7); NEUTROPHILS % (AUTO) 48.9 % (42.2-75.2); PLATELET COUNT (AUTO) 163 K/uL (140-450); RED BLOOD CELL COUNT(AUTO) 4.18 MIL/uL (4.20-5.40); RED CELL DISTRIBUTION WIDTH 11.9 % (11.6-13.7); WHITE BLOOD COUNT (AUTO) 4.7 K/uL (4.8-10.8)
[2017-07-17] MEDS: BLOOD GLUCOSE MONITORING 1 DEV DEV FS SCH (07:32)
[2017-07-17] MEDS: INSULIN LISPRO SLIDING SCALE 100 UNITS/ML VIAL SUBQ PRN (07:33)
--- NOTE | 2017-07-17 07:37 | NUR ---
PATIENT REPORT GIVEN TO MORNING NURSE. PATIENT IN STABLE CONDITION
--- NOTE | 2017-07-17 07:38 | NUR ---
RECEIVED REPORT FROM THE FORK LIFT TECHNICIAN NURSE AT BEDSIDE FOR CONTINUITY OF CARE. PT IS AWAKE AND ALERT. INTRODUCED MYSELF AND UPDATE THE BOARD. V/S WITHIN NORMAL RANGE. IV L FA 22G SL. R ARM IS SWOLLEN AND RED. PT C/O SORE THROAT AND CORREIA. WILL CONTINUE TO MONITOR PT.
[2017-07-17 07:45] LABS: ANION GAP 12.1 (8-16); CARBON DIOXIDE 27.3 mmol/L (21-32); CREATININE 0.6 mg/dL (0.6-1.3); POTASSIUM 4.4 mmol/L (3.5-5.1)
[2017-07-17 08:00] VITALS: BP_SYST 135; BP_SYST 143; BP_DIAS 56; BP_DIAS 69
[2017-07-17] MEDS ORDERED: ONGLYZA 5 MG TAB PO SCH (09:00)
[2017-07-17] MEDS: LACTOBACILLUS RHAMNOSUS GG 1 EACH CAP PO SCH (09:04)
[2017-07-17] MEDS: amLODIPine 5 MG TAB PO SCH (09:04)
[2017-07-17] MEDS: ENALAPRIL 10 MG TAB PO SCH (09:05)
[2017-07-17] MEDS: ECOTRIN 81 MG TABEC PO SCH (09:05)
[2017-07-17] MEDS: METOPROLOL 50 MG TAB PO SCH (09:05)
[2017-07-17] MEDS: RIVAROXABAN 10 MG TAB PO SCH (09:06)
[2017-07-17] MEDS: CELECOXIB 100 MG CAP PO SCH (09:07)
[2017-07-17] MEDS: LORazepam 0.5 MG TAB PO SCH (09:07)
[2017-07-17] MEDS: metFORMIN 500 MG TAB PO SCH (09:08)
[2017-07-17] MEDS: METHYLDOPA 250 MG TAB PO SCH (09:08)
[2017-07-17] MEDS: ANASTROZOLE 1 MG TAB PO SCH (09:08)
[2017-07-17] MEDS: GEMFIBROZIL 600 MG TAB PO SCH (09:08)
--- NOTE | 2017-07-17 09:14 | NUR ---
ADMINISTERED MORNING MEDS. PT TOLERATED WELL. WILL CONTINUE TO MONITOR PT.
[2017-07-17] MEDS ORDERED: PENI500T19 PO (10:51)
--- NOTE | 2017-07-17 11:30 | NUR ---
D/C ORDERS IN. WILL START D/C PROCESS. SON IS HERE.
--- NOTE | 2017-07-17 12:15 | NUR ---
D/C INSTRUCTIONS GIVEN TO PT AND SON. PT VERBALIZED UNDERSTANDING. REMOVED ID BANDS. PT ALREADY DRESSED IN HER CLOTHES. SON IS GATHERING HER PERSONAL BELONGINGS. WILL LET ME KNOW WHEN SHE IS READY TO GO.
--- NOTE | 2017-07-17 12:25 | NUR ---
PT WALKED OUT ACCOMPANIED BY SON AND RN STUDENT. PT IS IN STABLE CONDITION.
== END 2017-07-17 12:25 | disposition home or self-care (01) | DRG 720 ==
LOC: MED 18:49 → MTU 23:09
PROVIDERS: ADMIT Preventive Medicine Preventive Medicine/Occupational Environmental Medicine; ATTEND Preventive Medicine Preventive Medicine/Occupational Environmental Medicine
DX: A41.9 Sepsis, unspecified organism (principal); E11.65 Type 2 diabetes mellitus with hyperglycemia; I10 Essential (primary) hypertension; E87.1 Hypo-osmolality and hyponatremia; L03.113 Cellulitis of right upper limb; I89.0 Lymphedema, not elsewhere classified; I25.10 Atherosclerotic heart disease of native coronary artery without angina pectoris; E78.5 Hyperlipidemia, unspecified; Z85.3 Personal history of malignant neoplasm of breast; Z79.01 Long term (current) use of anticoagulants; Z90.11 Acquired absence of right breast and nipple; Z79.84 Long term (current) use of oral hypoglycemic drugs
CPT/HCPCS: 36415; 73060; 73090; 80048; 80053; 82948; 85025; 85651; 86140; 87040; 87081; 96365; 96367; 96375; 99285; J1885; J2543; J3490; J7030; J7060; Q0092

== ENCOUNTER 2017-08-07 13:34 | Inpatient (IN) | payer MEDICAID ==
[~2017-08-07] VITALS: Ht 154.9 cm; Wt 76.7 kg
[~2017-08-07 13:34] MED LIST changes: -CLIN300C2 PO; -LEVO500T2 PO; +PENI500T19 PO
[2017-08-07 14:04] VITALS: BP 155/71
--- NOTE | 2017-08-07 14:07 | NUR ---
Patient to bed 06.
--- NOTE | 2017-08-07 14:20 | NUR ---
57/F BIB FAMILY C/O RIGHT ARM PAIN/ REDNESS & SWELLING X3 DAYS. HX DM, HTN.[id number] WITH EVEN AND STEADY GAIT; LUNGS CLEAR BL; PT DENIES ANY FEVER, CP, SOB, OR COUGH AT THIS TIME; PATIENT STATES PAIN OF 0/10 AT THIS TIME; PATIENT POSITIONED FOR COMFORT; HOB ELEVATED; BEDRAILS UP X2; BED DOWN. ER MD MADE AWARE OF PT STATUS.
--- NOTE | 2017-08-07 14:22 | NUR ---
ER MD DR. KEY EVALUATING PT AT BEDSIDE.
[2017-08-07] MEDS ORDERED: NACL 0.9% 1,000 ML IV SCH (14:26)
[2017-08-07] MEDS ORDERED: cefTRIAXone 1,000 MG in DEXT 5% MINI-BAG PLUS 50 ML IV ONE (14:30)
[2017-08-07] MEDS ORDERED: MORPHINE SULFATE 4 MG/ML SYR IVP ONE (14:30)
--- NOTE | 2017-08-07 14:38 | NUR ---
X RAY AT BEDSIDE.
[2017-08-07] MEDS ORDERED: cefTRIAXone 1,000 MG VIAL ONE (14:48)
[2017-08-07 14:56] LABS: BASOPHILS # (AUTO) 0.1 K/uL (0.00-0.22); BASOPHILS % (AUTO) 0.7 % (0.0-2.0); EOSINOPHILS # (AUTO) 0.1 K/uL (0-0.4); EOSINOPHILS % (AUTO) 0.7 % (0.0-4.0); HEMATOCRIT 38.8 % (36-48); HEMOGLOBIN 13.3 g/dL (12.0-16.0); MEAN CORPUSCULAR HEMOGLOBIN 31 pg (27-31); MEAN CORPUSCULAR HGB CONC 34 g/dL (33-37); MEAN CORPUSCULAR VOLUME 90 fL (80-94); MONOCYTES # (AUTO) 0.3 K/uL (0.8-1.0); MONOCYTES % (AUTO) 2.3 % (1.7-9.3); NEUTROPHILS % (AUTO) 87.3 % (42.2-75.2); PLATELET COUNT (AUTO) 203 K/uL (140-450); RED CELL DISTRIBUTION WIDTH 11.8 % (11.6-13.7); WHITE BLOOD COUNT (AUTO) 11.5 K/uL (4.8-10.8)
[2017-08-07 15:01] LABS: APPEARANCE,URINE CLEAR (CLEAR); BILIRUBIN,URINE NEGATIVE (NEGATIVE); BLOOD, URINE TRACE-I (NEGATIVE); COLOR,URINE YELLOW (YELLOW); LEUKOCYTE ESTERASE ,URINE NEGATIVE (NEGATIVE); NITRITE, URINE NEGATIVE (NEGATIVE); UGLUCOSE NEGATIVE (NEGATIVE)
[2017-08-07 15:16] LABS: PROTHROMBIN TIME 10.4 secs (10.8-13.4)
[2017-08-07 15:19] LABS: ALBUMIN 3.8 g/dL (3.4-5.0); ANION GAP 11.8 (8-16); CARBON DIOXIDE 30.7 mmol/L (21-32); CREATININE 0.7 mg/dL (0.6-1.3); POTASSIUM 3.5 mmol/L (3.5-5.1); TOTAL BILIRUBIN 0.4 mg/dL (0.0-1.0)
[2017-08-07 15:20] LABS: RBC,URINE 0-5 (RARE) /HPF (0-5); WBC,URINE 0-5 (RARE) /HPF (0-5)
[2017-08-07] MEDS ORDERED: DEXTROSE 50% 50 ML SYR IVP PRN (15:45)
[2017-08-07] MEDS ORDERED: ONDANSETRON 4 MG/2 ML VIAL IVP PRN (15:45)
--- NOTE | 2017-08-07 15:57 | NUR ---
Patient will be admitted to care of DR TIPTON. Admited to MS. Will go to room 120. Belongings list completed. Report to RN WALLY BADILLO.
[2017-08-07 16:15] VITALS: BP 133/72
--- NOTE | 2017-08-07 16:45 | NUR ---
RECEIVED PT REPORT AT BEDSIDE FROM NIGHT NURSE. PT IS AAOX4 AND SHOWS NO S/S OF ACUTE DISTRESS ON RA. NOTED IV ON THE L AC SL. SKIN IS INTACT. ON MS. SCD'S ORDERED. PT DENIES PAIN STATES 5/10 TOLERABLE RIGHT ARM PAIN. PT WAS EXPLAINED POC FOR TODAY AND SHE VERBALIZED UNDERSTANDING. THE BED IS IN LOW POSITION AND CALL LIGHT WITHIN REACH. FAMILY AT BEDSIDE. WILL CONTINUE TO MONITOR.
[2017-08-07] MEDS: BLOOD GLUCOSE MONITORING 1 DEV DEV FS SCH ×2 (16:54→20:26)
[2017-08-07] MEDS ORDERED: NON-FORMULARY ITEM (Lactobacillus Acidophilus (Probiotic) 1 EACH) PO SCH (17:00)
--- NOTE | 2017-08-07 18:30 | NUR ---
PT IS SLEEPING AND SHOWS NO S/S OF ACUTE DISTRESS ON ROOM AIR.
--- NOTE | 2017-08-07 19:29 | NUR ---
GAVE PT REPORT AT BEDSIDE TO NIGHT NURSE. PT ENDORSED IN STABLE CONDITION.
--- NOTE | 2017-08-07 19:30 | NUR ---
RECEIVED PT FROM JUSTINO LO PT LUXEMBOURGISH SPEAKER AAOX4 AMBULATORY RT ARM REDNESS AND EDEMATOUS NOT PITTING ON PILLOW ELEVATION HL ON LEFT AC PATENT RELATIVES AT BED SIDE INITIAL ASSESSMENT DONE
[2017-08-07 20:00] VITALS: BP 127/67
[2017-08-07] MEDS: HYDROcodone/APAP 5/325 MG 1 TAB TAB PO PRN (20:14)
[2017-08-07] MEDS: GEMFIBROZIL 600 MG TAB PO SCH (20:18)
[2017-08-07] MEDS: METOPROLOL 50 MG TAB PO SCH (20:19)
[2017-08-07] MEDS: INSULIN LISPRO SLIDING SCALE 100 UNITS/ML VIAL SUBQ PRN (20:25)
[2017-08-07] MEDS ORDERED: metFORMIN 500 MG TAB PO SCH (21:00)
--- NOTE | 2017-08-07 21:30 | NUR ---
DR LEDEZMA IS HERE AND SEE THE PT AND ORDERS TO FOLLOW
[2017-08-07] MEDS: CLINDAMYCIN 900 MG in DEXTROSE 5% 100 ML IV SCH (22:03)
[2017-08-07] MEDS ORDERED: CLINDAMYCIN 900 MG/6 ML VIAL IV ONE (22:06)
[2017-08-08] VITALS: BP 117/73
--- NOTE | 2017-08-08 00:39 | NUR ---
PT SLEEPING WELL RT HAND ON PILLOW ELEVATION DENIES ANY PAIN M
--- NOTE | 2017-08-08 03:00 | NUR ---
PT ON RT ARM ON PILLOW ELEVATION DENIES ANY PAIN NOT FEVER
[2017-08-08 04:00] VITALS: BP 131/85
[2017-08-08] MEDS ORDERED: CLINDAMYCIN 900 MG/6 ML VIAL IV ONE (04:46)
[2017-08-08] MEDS: CLINDAMYCIN 900 MG in DEXTROSE 5% 100 ML IV SCH ×3 (04:55→20:43)
--- NOTE | 2017-08-08 05:00 | NUR ---
CLEOCIN GIVEN ORDER DENIES ANY PAIN RT ARM HEALING ON PROGRESS
[2017-08-08 06:16] LABS: BASOPHILS # (AUTO) 0.1 K/uL (0.00-0.22); BASOPHILS % (AUTO) 1.4 % (0.0-2.0); EOSINOPHILS # (AUTO) 0.1 K/uL (0-0.4); EOSINOPHILS % (AUTO) 1.8 % (0.0-4.0); HEMATOCRIT 36.9 % (36-48); HEMOGLOBIN 12.6 g/dL (12.0-16.0); LYMPHOCYTES # (AUTO) 1.9 K/uL (2.5-16.5); LYMPHOCYTES % (AUTO) 26.1 % (20.5-51.1); MEAN CORPUSCULAR HEMOGLOBIN 31 pg (27-31); MEAN CORPUSCULAR HGB CONC 34 g/dL (33-37); MEAN CORPUSCULAR VOLUME 91 fL (80-94); MONOCYTES # (AUTO) 0.5 K/uL (0.8-1.0); NEUTROPHILS # (AUTO) 4.7 K/uL (1.8-7.7); NEUTROPHILS % (AUTO) 63.7 % (42.2-75.2); PLATELET COUNT (AUTO) 176 K/uL (140-450); RED BLOOD CELL COUNT(AUTO) 4.06 MIL/uL (4.20-5.40); RED CELL DISTRIBUTION WIDTH 12.1 % (11.6-13.7); WHITE BLOOD COUNT (AUTO) 7.3 K/uL (4.8-10.8)
[2017-08-08] MEDS: BLOOD GLUCOSE MONITORING 1 DEV DEV FS SCH ×4 (06:28→20:29)
[2017-08-08] MEDS: INSULIN LISPRO SLIDING SCALE 100 UNITS/ML VIAL SUBQ PRN ×3 (06:30→20:32)
[2017-08-08 06:36] LABS: ANION GAP 11.9 (8-16); CARBON DIOXIDE 29.6 mmol/L (21-32); CREATININE 0.5 mg/dL (0.6-1.3); POTASSIUM 3.5 mmol/L (3.5-5.1)
--- NOTE | 2017-08-08 07:05 | NUR ---
BLOOD SUGAR TEST 162 COVERAGE WITH 2 UNITS SUBQ HUMALOG ON LEFT ARM
--- NOTE | 2017-08-08 07:30 | NUR ---
REPORT RECEIVED FROM RENEWABLE ENERGY ENGINEER NURSE, PT SITTING UP AT SIDE OF BED, AAOX4, RESP EVEN UNLABORED ON RA, SKIN WARM DRY COLOR WNL, PT DENIES PAIN OR DISCOMFORT, PLAN OF CARE REVIEWED, PT VERBALIZED FULL UNDERSTANDING, CALL DHALIWAL WITHIN REACH, SIDE RAILS UP, BED LOCKED IN LOW POSITION, WILL CONTINUE TO MONITOR.
--- NOTE | 2017-08-08 07:54 | NUR ---
PATIENT HAS BEEN SCREENED AND CATEGORIZED MODERATE NUTRITION RISK. PATIENT WILL BE SEEN WITHIN 3-5 DAYS OF ADMISSION. 08/10/17-08/12/[address]
[2017-08-08 08:00] VITALS: BP 130/80
[2017-08-08] MEDS: metFORMIN 500 MG TAB PO SCH ×2 (08:21→16:11)
[2017-08-08] MEDS: ECOTRIN 81 MG TABEC PO SCH (08:22)
[2017-08-08] MEDS: METHYLDOPA 250 MG TAB PO SCH (08:22)
[2017-08-08] MEDS: LORazepam 0.5 MG TAB PO SCH (08:22)
[2017-08-08] MEDS: ANASTROZOLE 1 MG TAB PO SCH (08:22)
[2017-08-08] MEDS: METOPROLOL 50 MG TAB PO SCH ×2 (08:23→20:47)
[2017-08-08] MEDS: amLODIPine 5 MG TAB PO SCH (08:23)
[2017-08-08] MEDS: LACTOBACILLUS RHAMNOSUS GG 1 EACH CAP PO SCH ×3 (08:23→16:11)
[2017-08-08] MEDS: GEMFIBROZIL 600 MG TAB PO SCH ×2 (08:23→20:46)
[2017-08-08] MEDS: ENALAPRIL 10 MG TAB PO SCH (08:24)
[2017-08-08] MEDS: RIVAROXABAN 10 MG TAB PO SCH (08:25)
--- NOTE | 2017-08-08 08:31 | NUR ---
DUE MEDS GIVEN, GENNY WELL, SON AT BEDSIDE, WILL CONTINUE TO MONITOR. LEFT ARM WITH SLIGHT ERYTHEMA AND SWELLING, PT STATES REDNESS LESS THAN LAST NIGTH, GOOD CMS DISTALLY.
[2017-08-08] MEDS ORDERED: NON-FORMULARY ITEM (Meloxicam* (Mobic*) 7.5 MG) PO SCH (09:00)
[2017-08-08] MEDS ORDERED: SAXAGLIPTIN HCL 5 MG PO SCH (09:00)
[2017-08-08] MEDS ORDERED: PROCHLORPERAZINE 10 MG/2 ML VIAL IVP PRN (11:55)
--- NOTE | 2017-08-08 12:44 | NUR ---
US AT BEDSIDE, DUE IV ANTIBIOTIC STARTED.
[2017-08-08 16:00] VITALS: BP 131/72
--- NOTE | 2017-08-08 16:19 | NUR ---
SITTING UP IN BED TALKING WITH SON AND GRANDSON, SPEAKS CLEARLY, RESP EVEN UNLABORED, DENIES PAIN OR DISCOMFORT, BLOOD SUGAR 150, NO INSULIN NEEDED, SUGAR FREE JELLO GIVEN, WILL CONTINUE TO MONITOR
--- NOTE | 2017-08-08 19:26 | NUR ---
REPORT GIVEN TO MEDICAL ADMINISTRATIVE TECHNICIAN NURSE JARED RN, PT IN STABLE CONDITION.
--- NOTE | 2017-08-08 19:27 | NUR ---
RECEIVED PT FROM SUSI RN PT IS AAOX4 AMBULATORY WITH CELLULITIS ON RT UPPER ARM HEALING ON PROGRESS HL ON LEFT AC PATENT PT SEEM STABLE DENIES ANY PAIN AT THIS TIME
[2017-08-08 20:00] VITALS: BP 116/61
--- NOTE | 2017-08-08 22:00 | NUR ---
PT RESTING ON BED DNIES ANY PAIN OR DISCOMFORT RT ARM ON PILLOW ELEVATION
[2017-08-09] VITALS: BP 120/63
--- NOTE | 2017-08-09 00:28 | NUR ---
SLEEPING WELL REMAIN STABLE
--- NOTE | 2017-08-09 04:00 | NUR ---
SPONGE BATH GIVEN,, LINEN CHANGED PT VOIDING WELL RT ARM HEALING ON PROGRES
[2017-08-09] MEDS: CLINDAMYCIN 900 MG in DEXTROSE 5% 100 ML IV SCH ×3 (05:21→20:24)
[2017-08-09 05:35] LABS: BASOPHILS # (AUTO) 0.1 K/uL (0.00-0.22); BASOPHILS % (AUTO) 3.3 % (0.0-2.0); EOSINOPHILS # (AUTO) 0.2 K/uL (0-0.4); EOSINOPHILS % (AUTO) 3.9 % (0.0-4.0); HEMATOCRIT 37.2 % (36-48); HEMOGLOBIN 12.6 g/dL (12.0-16.0); LYMPHOCYTES # (AUTO) 1.5 K/uL (2.5-16.5); LYMPHOCYTES % (AUTO) 35.8 % (20.5-51.1); MEAN CORPUSCULAR HEMOGLOBIN 31 pg (27-31); MEAN CORPUSCULAR HGB CONC 34 g/dL (33-37); MEAN CORPUSCULAR VOLUME 91 fL (80-94); MONOCYTES # (AUTO) 0.4 K/uL (0.8-1.0); MONOCYTES % (AUTO) 8.5 % (1.7-9.3); NEUTROPHILS % (AUTO) 48.5 % (42.2-75.2); PLATELET COUNT (AUTO) 182 K/uL (140-450); WHITE BLOOD COUNT (AUTO) 4.2 K/uL (4.8-10.8)
[2017-08-09] MEDS: INSULIN LISPRO SLIDING SCALE 100 UNITS/ML VIAL SUBQ PRN ×3 (06:03→20:36)
[2017-08-09] MEDS: BLOOD GLUCOSE MONITORING 1 DEV DEV FS SCH ×4 (06:04→20:27)
--- NOTE | 2017-08-09 06:25 | NUR ---
PT REMAIN STABLE DENIES ANY PAIN OR DISCOMFORT BLOOD SUGAR TEST 166 COVERAGE PROTOCOL
[2017-08-09 06:30] LABS: ANION GAP 11.8 (8-16); CREATININE 0.6 mg/dL (0.6-1.3); POTASSIUM 3.8 mmol/L (3.5-5.1)
--- NOTE | 2017-08-09 07:20 | NUR ---
RECEIVED REPORT FROM TOOL OR DIE DRAWING CHECKER RN. PATIENT IS AAOX4, RESPIRATORY EFFORT EVEN AND UNLABORED AND ON ROOM AIR. IV SALINE LOCK ON LEFT AC 20G, DRESSING IS CLEAN, DRY AND PATENT. NO SIGNS AND SYMPTOMS OF ACUTE DISTRESS NOTED AT THIS TIME. DISCUSSED PLAN OF CARE WITH PATIENT AND SHE VERBALIZED UNDERSTANDING. BED IN LOWEST POSITION, SIDERAILS UP X2, CALL LIGHT WITHIN REACH. WILL CONTINUE TO MONITOR.
[2017-08-09 08:00] VITALS: BP 138/82
[2017-08-09] MEDS: ANASTROZOLE 1 MG TAB PO SCH (08:50)
[2017-08-09] MEDS: METHYLDOPA 250 MG TAB PO SCH (08:50)
[2017-08-09] MEDS: ONGLYZA 5 MG PO SCH (08:51)
[2017-08-09] MEDS: amLODIPine 5 MG TAB PO SCH (08:51)
[2017-08-09] MEDS: ECOTRIN 81 MG TABEC PO SCH (08:51)
[2017-08-09] MEDS: METOPROLOL 50 MG TAB PO SCH ×2 (08:52→20:23)
[2017-08-09] MEDS: ENALAPRIL 10 MG TAB PO SCH (08:52)
[2017-08-09] MEDS: GEMFIBROZIL 600 MG TAB PO SCH ×2 (08:52→20:24)
[2017-08-09] MEDS: LACTOBACILLUS RHAMNOSUS GG 1 EACH CAP PO SCH ×3 (08:52→17:00)
[2017-08-09] MEDS: metFORMIN 500 MG TAB PO SCH ×2 (08:52→17:00)
[2017-08-09] MEDS: LORazepam 0.5 MG TAB PO SCH (08:53)
[2017-08-09] MEDS: RIVAROXABAN 10 MG TAB PO SCH (08:58)
--- NOTE | 2017-08-09 09:40 | NUR ---
PATIENT LAYING IN BED, REQUESTED TO BE ABLE TO WASH HERSELF.
[2017-08-09] MEDS: HYDROcodone/APAP 5/325 MG 1 TAB TAB PO PRN (10:56)
--- NOTE | 2017-08-09 11:50 | NUR ---
PATIENT HAS NO COMPLAINTS OF PAIN AT THIS TIME. WILL CONTINUE TO MONITOR.
--- NOTE | 2017-08-09 13:20 | NUR ---
PATIENT WATCHING TV AND TALKING WITH STUDENT.
--- NOTE | 2017-08-09 15:15 | NUR ---
PATIENT LAYING IN BED WITH EYES CLOSED. WILL CONTINUE TO MONITOR.
--- NOTE | 2017-08-09 17:30 | NUR ---
PATIENT ASKING IF SHE CAN HAVE HER SON BRING HER FOOD FROM THE OUTSIDE. EXPLAINED TO HER THAT HERE SHE IS ON A CARDIAC DIET AND THAT IT WOULD BE OF BEST INTEREST TO HER IF SHE MAINTAINED THAT DIET WHILE IN THE HOSPITAL. PATIENT VERBALIZED UNDERSTANDING.
--- NOTE | 2017-08-09 19:20 | NUR ---
ENDORSED PATIENT TO SOFTWARE SOLUTIONS ARCHITECT RN FOR CONTINUITY OF CARE. IN STABLE CONDITION AT THIS TIME.
--- NOTE | 2017-08-09 19:21 | NUR ---
PATIENT REPORT RECEIVED FROM MORNING NURSE. PATIENT IS AWAKE, ALERT, AND ORIENTED. NO SIGNS AND SYMPTOMS OF DISTRESS NOTED. IV SITE NOTED ON LEFT AC, SALINE LOCKED. BED IN LOWEST POSITION, SIDE RAILS UP AND CALL LIGHT WITHIN REACH. WILL CONTINUE TO MONITOR.
[2017-08-09 20:00] VITALS: BP 137/71
[2017-08-09] MEDS: ACETAMINOPHEN 325 MG TAB PO PRN (20:58)
--- NOTE | 2017-08-09 22:30 | NUR ---
CHECKED ON PATIENT. PATIENT RESTING COMFORTABLY IN BED WATCHING TV AND TALKING ON THE PHONE. NO SIGNS AND SYMPTOMS OF DISTRESS NOTED. BED IN LOWEST POSITION, SIDE RAILS UP AND CALL LIGHT WITHIN REACH
[2017-08-10] VITALS: BP 107/57
[2017-08-10] MEDS: CLINDAMYCIN 900 MG in DEXTROSE 5% 100 ML IV SCH ×3 (04:51→20:35)
[2017-08-10] MEDS: BLOOD GLUCOSE MONITORING 1 DEV DEV FS SCH ×5 (06:36→20:25)
[2017-08-10 06:48] LABS: BASOPHILS # (AUTO) 0.1 K/uL (0.00-0.22); BASOPHILS % (AUTO) 2.6 % (0.0-2.0); EOSINOPHILS # (AUTO) 0.2 K/uL (0-0.4); EOSINOPHILS % (AUTO) 3.8 % (0.0-4.0); HEMATOCRIT 37.4 % (36-48); HEMOGLOBIN 12.9 g/dL (12.0-16.0); LYMPHOCYTES # (AUTO) 1.6 K/uL (2.5-16.5); LYMPHOCYTES % (AUTO) 35.3 % (20.5-51.1); MEAN CORPUSCULAR HEMOGLOBIN 32 pg (27-31); MEAN CORPUSCULAR HGB CONC 35 g/dL (33-37); MEAN CORPUSCULAR VOLUME 91 fL (80-94); MONOCYTES # (AUTO) 0.3 K/uL (0.8-1.0); MONOCYTES % (AUTO) 7.1 % (1.7-9.3); NEUTROPHILS # (AUTO) 2.3 K/uL (1.8-7.7); NEUTROPHILS % (AUTO) 51.2 % (42.2-75.2); PLATELET COUNT (AUTO) 206 K/uL (140-450); RED BLOOD CELL COUNT(AUTO) 4.11 MIL/uL (4.20-5.40); RED CELL DISTRIBUTION WIDTH 11.7 % (11.6-13.7); WHITE BLOOD COUNT (AUTO) 4.5 K/uL (4.8-10.8)
[2017-08-10] MEDS: INSULIN LISPRO SLIDING SCALE 100 UNITS/ML VIAL SUBQ PRN (06:58)
[2017-08-10 07:09] LABS: ANION GAP 11.9 (8-16); CARBON DIOXIDE 27.2 mmol/L (21-32); CREATININE 0.6 mg/dL (0.6-1.3); POTASSIUM 4.1 mmol/L (3.5-5.1)
--- NOTE | 2017-08-10 07:35 | NUR ---
RECEIVED REPORT FROM PHOTOGRAPHERS' MODEL RN. PATIENT IS AWAKE, ALERT AND ORIENTED X4, RESPIRATORY EVEN AND UNLABORED. BOWEL SOUNDS ARE ACTIVE. HAS IV TO LEFT AC 20G ON SALINE LOCK. SITE IS CLEAN, DRY AND PATENT. NO SIGNS AND SYMPTOMS OF DISTRESS NOTED AT THIS TIME. DISCUSSED PLAN OF CARE WITH PATIENT AND SHE VERBALIZED UNDERSTANDING. BED IN LOWEST POSITION, SIDERAILS UP X2, CALL LIGHT PLACED WITHIN REACH. WILL CONTINUE TO MONITOR.
--- NOTE | 2017-08-10 07:38 | NUR ---
PATIENT REPORT GIVEN AT BEDSIDE. PATIENT IN STABLE CONDITION.
[2017-08-10 08:00] VITALS: BP 144/78
[2017-08-10] MEDS: ANASTROZOLE 1 MG TAB PO SCH (08:47)
[2017-08-10] MEDS: ONGLYZA 5 MG PO SCH (08:48)
[2017-08-10] MEDS: METHYLDOPA 250 MG TAB PO SCH (08:49)
[2017-08-10] MEDS: LACTOBACILLUS RHAMNOSUS GG 1 EACH CAP PO SCH ×3 (08:50→17:08)
[2017-08-10] MEDS: ECOTRIN 81 MG TABEC PO SCH (08:51)
[2017-08-10] MEDS: GEMFIBROZIL 600 MG TAB PO SCH ×2 (08:51→20:26)
[2017-08-10] MEDS: metFORMIN 500 MG TAB PO SCH ×2 (08:51→17:09)
[2017-08-10] MEDS: LORazepam 0.5 MG TAB PO SCH (08:51)
[2017-08-10] MEDS: ENALAPRIL 10 MG TAB PO SCH (08:52)
[2017-08-10] MEDS: amLODIPine 5 MG TAB PO SCH (08:52)
[2017-08-10] MEDS: METOPROLOL 50 MG TAB PO SCH ×2 (08:53→20:26)
[2017-08-10] MEDS: RIVAROXABAN 10 MG TAB PO SCH (08:55)
--- NOTE | 2017-08-10 09:15 | NUR ---
PATIENT LAYING IN BED, NO COMPLAINTS OF PAIN AT THIS TIME.
--- NOTE | 2017-08-10 11:30 | NUR ---
PATIENT IS LAYING IN BED, NO SIGNS AND SYMPTOMS OF DISTRESS NOTED AT THIS TIME. BS WAS 144, NO COVERAGE NEEDED AT THIS TIME.
--- NOTE | 2017-08-10 15:30 | NUR ---
FAMILY AT BEDSIDE. WILL CONTINUE TO MONITOR.
[2017-08-10 16:00] VITALS: BP 120/68
--- NOTE | 2017-08-10 19:30 | NUR ---
Patient's Plan of Care was discussed and reviewed with LEGGER PRESS OPERATOR: GOPI.
--- NOTE | 2017-08-10 19:30 | NUR ---
ENDORSED PATIENT TO RECORDINGS LIBRARIAN NURSE FOR CONTINUITY OF CARE. PATIENT IS STABLE.
--- NOTE | 2017-08-10 19:31 | NUR ---
PATIENT IS CURRENTLY RESTING IN BED AWAKE ALERT ORIENTED GEORGIAN SPEAKING DENIES PAIN.RT ARM IS SWOLLEN AND SLIGHTLY RED. PATIENT STATES SHE WANTS TO WALK TO THE BATHROOM AND SHE WAS ASSISTED TO THE BATHROOM.PATIENT DENIES PAIN ABLE TO MAKE NEEDS KNOWN.CALL LIGHT WITHIN REACH WILL CONTINUE TO MONITOR.
[2017-08-10 20:00] VITALS: BP 124/65
--- NOTE | 2017-08-10 20:26 | NUR ---
EDUCATION GIVEN ON MEDICATION SHE WILL BE TAKING TONIGHT AND PATIENT VERBALIZES UNDERSTANDING AND TOOK HER MEDICATION WILL CONTINUE TO MONITOR HER BLOOD PRESSURE AND VITAL SIGNS.CALL LIGHT WITHIN REACH.
--- NOTE | 2017-08-10 21:05 | NUR ---
PATIENT IV IS NO GOOD LEAKING AND I DISCONTINUED THE IV LINE AND RESTARTED A NEW IV LINE TO LT HAND G#22 AT FIRST ATTEMPT WITH GOOD BLOOD RETURN. IVF CURRENTLY INFUSING WELL. PATIENT WILL GET HER ANTIBIOTIC ORDERED.WILL CONTINUE TO MONITOR. HS SNACK GIVEN TO THE PATIENT.PATIENT DENIES PAIN RESTING COMFORTABLY IN BED.
--- NOTE | 2017-08-10 23:09 | NUR ---
PATIENT ASSISTED TO THE BATHROOM AND BACK TO BED.WILL CONTINUE TO MONITOR.
[2017-08-11 00:01] VITALS: BP 118/61
--- NOTE | 2017-08-11 01:26 | NUR ---
PATIENT COMPLAINING SHE IS FEELING COLD AND I GAVE HER A WARM BLANKET.
--- NOTE | 2017-08-11 03:45 | NUR ---
PATIENT SLEEPING WILL CONTINUE TO MONITOR.
[2017-08-11] MEDS: CLINDAMYCIN 900 MG in DEXTROSE 5% 100 ML IV SCH (04:41)
--- NOTE | 2017-08-11 05:33 | NUR ---
PATIENT AWAKE DENIES PAIN AND DISCOMFORT PATIENT STATES,"I WAS ABLE TO SLEEP LAST NIGHT." PATIENT NEEDS MET WILL CONTINUE TO MONITOR.CALL LIGHT WITHIN REACH.
[2017-08-11] MEDS: BLOOD GLUCOSE MONITORING 1 DEV DEV FS SCH (06:00)
[2017-08-11 06:44] LABS: BASOPHILS # (AUTO) 0.2 K/uL (0.00-0.22); EOSINOPHILS # (AUTO) 0.2 K/uL (0-0.4); EOSINOPHILS % (AUTO) 3.5 % (0.0-4.0); HEMATOCRIT 38.1 % (36-48); LYMPHOCYTES # (AUTO) 1.7 K/uL (2.5-16.5); LYMPHOCYTES % (AUTO) 34.3 % (20.5-51.1); MEAN CORPUSCULAR HEMOGLOBIN 31 pg (27-31); MEAN CORPUSCULAR HGB CONC 34 g/dL (33-37); MEAN CORPUSCULAR VOLUME 90 fL (80-94); MONOCYTES # (AUTO) 0.4 K/uL (0.8-1.0); MONOCYTES % (AUTO) 8.7 % (1.7-9.3); NEUTROPHILS # (AUTO) 2.5 K/uL (1.8-7.7); NEUTROPHILS % (AUTO) 50.5 % (42.2-75.2); PLATELET COUNT (AUTO) 215 K/uL (140-450); RED BLOOD CELL COUNT(AUTO) 4.22 MIL/uL (4.20-5.40); RED CELL DISTRIBUTION WIDTH 11.9 % (11.6-13.7)
[2017-08-11 06:53] LABS: ANION GAP 9.9 (8-16); CARBON DIOXIDE 28.2 mmol/L (21-32); CREATININE 0.6 mg/dL (0.6-1.3); POTASSIUM 4.1 mmol/L (3.5-5.1)
--- NOTE | 2017-08-11 07:02 | NUR ---
PATIENT STABLE ASSISTED TO AMBULATE TO THE BATHROOM.PATIENT DENIES PAIN.CALL LIGHT WITHIN REACH WILL CONTINUE TO MONITOR.
[2017-08-11 08:00] VITALS: BP 129/66
[2017-08-11] MEDS: METHYLDOPA 250 MG TAB PO SCH (08:53)
[2017-08-11] MEDS: GEMFIBROZIL 600 MG TAB PO SCH (08:54)
[2017-08-11] MEDS: LORazepam 0.5 MG TAB PO SCH (08:54)
[2017-08-11] MEDS: ENALAPRIL 10 MG TAB PO SCH (08:54)
[2017-08-11] MEDS: metFORMIN 500 MG TAB PO SCH (08:55)
[2017-08-11] MEDS: ECOTRIN 81 MG TABEC PO SCH (08:56)
[2017-08-11] MEDS: amLODIPine 5 MG TAB PO SCH (08:59)
[2017-08-11] MEDS: LACTOBACILLUS RHAMNOSUS GG 1 EACH CAP PO SCH (09:00)
[2017-08-11] MEDS: METOPROLOL 50 MG TAB PO SCH (09:00)
[2017-08-11] MEDS: ONGLYZA 5 MG PO SCH (09:04)
[2017-08-11] MEDS: RIVAROXABAN 10 MG TAB PO SCH (09:04)
[2017-08-11] MEDS: ANASTROZOLE 1 MG TAB PO SCH (09:04)
[2017-08-11] MEDS: ACETAMINOPHEN 325 MG TAB PO PRN (10:56)
[2017-08-11] MEDS ORDERED: PENI500T19 PO ×2 (11:14→11:16)
--- NOTE | 2017-08-11 12:15 | NUR ---
DISCHARGE ORDERS HAVE BEEN PUT IN PLACE. GAVE PATIENT EDUCATION ON WHEN TO FOLLOW UP WITH EITHER PCP OR DR Sybil TIPTON. WHAT SIGNS AND SYMPTOMS TO WATCH OUT FOR WHEN TAKING PENICILLIN, AND OTHER GENERAL S/S. TO SEEK EMERGENCY MEDICAL TREATMENT. PATIENT VERBALIZED UNDERSTANDING. PRESCRIPTION WAS GIVEN TO PATIENT. ALL BELONGINGS WITH PATIENT. IV SITE REMOVED, CATHETER WAS INTACT, DRESSING APPLIED CLEAN AND DRY. ID BAND REMOVED. PATIENT IS STABLE AT THIS TIME.
== END 2017-08-11 12:15 | disposition home or self-care (01) | DRG 383 ==
LOC: MED 13:34 → MTU 15:53
PROVIDERS: ADMIT Preventive Medicine Preventive Medicine/Occupational Environmental Medicine; ATTEND Preventive Medicine Preventive Medicine/Occupational Environmental Medicine
DX: L03.113 Cellulitis of right upper limb (principal); E11.42 Type 2 diabetes mellitus with diabetic polyneuropathy; I11.9 Hypertensive heart disease without heart failure; E11.65 Type 2 diabetes mellitus with hyperglycemia; E78.5 Hyperlipidemia, unspecified; F41.9 Anxiety disorder, unspecified; I89.0 Lymphedema, not elsewhere classified; I25.10 Atherosclerotic heart disease of native coronary artery without angina pectoris; B95.5 Unspecified streptococcus as the cause of diseases classified elsewhere; Z79.01 Long term (current) use of anticoagulants; Z85.3 Personal history of malignant neoplasm of breast; Z90.11 Acquired absence of right breast and nipple; Z90.49 Acquired absence of other specified parts of digestive tract; Z79.84 Long term (current) use of oral hypoglycemic drugs
CPT/HCPCS: 36415; 71010; 80048; 80053; 81001; 82550; 82553; 82948; 83605; 83874; 83880; 84484; 85025; 85610; 85651; 85730; 86140; 87040; 87081; 87086; 93005; 93971; 96365; 96375; 99285; J0696; J1815; J2270; J3490; J7030; J7060; Q0092

== ENCOUNTER → 2017-12-25 | Outpatient (CLI) | payer MEDICAID | LOC: MRD 09:34 | PROVIDERS: ATTEND Internal Medicine Geriatric Medicine | DX: M72.2 Plantar fascial fibromatosis (principal) | CPT/HCPCS: 73630 ==

== ENCOUNTER 2018-04-20 13:39 | Emergency (ER) | payer MEDICAID ==
[~2018-04-20] VITALS: Ht 157.5 cm; Wt 75.3 kg
[2018-04-20 13:50] VITALS: BP 129/76
[2018-04-20] MEDS ORDERED: DEXAMETHASONE 10 MG/ML VIAL IM ONE (14:35)
[2018-04-20] MEDS ORDERED: KETOROLAC 60 MG/2 ML VIAL IM ONE (14:35)
[2018-04-20 15:12] VITALS: BP 129/76
== END 2018-04-20 15:13 | disposition home or self-care (01) ==
LOC: MED 13:39
DX: I89.0 Lymphedema, not elsewhere classified (principal); E11.9 Type 2 diabetes mellitus without complications; I10 Essential (primary) hypertension; Z79.899 Other long term (current) drug therapy; Z85.3 Personal history of malignant neoplasm of breast
CPT/HCPCS: 96372; 99284; J1100; J1885

== ENCOUNTER 2018-06-04 13:25 | Inpatient (IN) | payer MEDICAID ==
[~2018-06-04] VITALS: Ht 157.5 cm; Wt 74.8 kg
[~2018-06-04 13:25] MED LIST changes: -ALD250 PO; +METH250T32 PO
[2018-06-04 13:33] VITALS: BP 133/74
--- NOTE | 2018-06-04 13:45 | NUR ---
PT AMBULATED TO BED 2, REPORT GIVEN TO SAMANTHA LO
--- NOTE | 2018-06-04 13:46 | NUR ---
PT PRESENT TO ED W/ C/O RT ARM PAIN X YESTERDAY; PT STATES SHE HAD IT BEFORE AND WAS DX CELLULITIS; RT ARM IS REDDENED AND SWOLLEN;PT HAS A HX OF RT MASTECTOMY;HTH AND DM;PT AAOX 4;PAIN SCALE OF 10/10;SAFETY MEASURES DONE;PT PLACED TO MONITORS;NEEDS ATENDED;ER MD WILL BE NOTIFIED OF PT'S CONDITION;
--- NOTE | 2018-06-04 14:36 | NUR ---
HINA HADDAD AT BEDSIDE.
[2018-06-04] MEDS ORDERED: NACL 0.9% 1,000 ML IV SCH (14:39)
[2018-06-04] MEDS ORDERED: VANCOMYCIN 1,000 MG in DEXTROSE 5% 250 ML IV ONE (14:40)
[2018-06-04] MEDS ORDERED: METOCLOPRAMIDE 10 MG/2 ML INJ VIAL IVP ONE (14:40)
[2018-06-04] MEDS ORDERED: MORPHINE SULFATE 4 MG/ML SYR IVP ONE (14:40)
[2018-06-04] MEDS ORDERED: VANCOMYCIN 1,000 MG VIAL ONE (14:52)
[2018-06-04 15:00] LABS: BASOPHILS % (AUTO) 0.1 % (0.0-2.0); HEMOGLOBIN 13.4 g/dL (12.0-16.0); LYMPHOCYTES # (AUTO) 1.1 K/uL (2.5-16.5); LYMPHOCYTES % (AUTO) 7.2 % (20.5-51.1); MEAN CORPUSCULAR HEMOGLOBIN 31 pg (27-31); MEAN CORPUSCULAR HGB CONC 34 g/dL (33-37); MEAN CORPUSCULAR VOLUME 89.7 fL (80-94); MONOCYTES # (AUTO) 0.3 K/uL (0.8-1.0); MONOCYTES % (AUTO) 2.3 % (1.7-9.3); NEUTROPHILS # (AUTO) 13.5 K/uL (1.8-7.7); NEUTROPHILS % (AUTO) 90.4 % (42.2-75.2); PLATELET COUNT (AUTO) 178 K/uL (140-450); RED BLOOD CELL COUNT(AUTO) 4.35 MIL/uL (4.20-5.40); RED CELL DISTRIBUTION WIDTH 12.8 % (11.6-13.7); WHITE BLOOD COUNT (AUTO) 14.9 K/uL (4.8-10.8)
[2018-06-04 15:21] LABS: PROTHROMBIN TIME 9.4 secs (10.8-13.4)
[2018-06-04 15:24] LABS: APPEARANCE,URINE CLEAR (CLEAR); BILIRUBIN,URINE NEGATIVE (NEGATIVE); BLOOD, URINE TRACE-L (NEGATIVE); COLOR,URINE YELLOW (YELLOW); LEUKOCYTE ESTERASE ,URINE NEGATIVE (NEGATIVE); NITRITE, URINE NEGATIVE (NEGATIVE); PH,URINE 6.5 (5.0-9.0); UGLUCOSE NEGATIVE (NEGATIVE)
--- NOTE | 2018-06-04 15:24 | NUR ---
PT AMBULATED TO THE RESTROOM ACCOMPANIED BY HER SON.
[2018-06-04 15:33] LABS: RBC,URINE 0-5 (RARE) /HPF (0-5); WBC,URINE 0-5 (RARE) /HPF (0-5); YEAST,URINE Few /HPF (None Seen)
[2018-06-04 15:47] LABS: ALBUMIN 3.8 g/dL (3.4-5.0); ANION GAP 12.2 (8-16); CARBON DIOXIDE 27.2 mmol/L (21-32); CREATININE 0.5 mg/dL (0.6-1.3); POTASSIUM 3.4 mmol/L (3.5-5.1); TOTAL BILIRUBIN 0.7 mg/dL (0.0-1.0)
--- NOTE | 2018-06-04 16:35 | NUR ---
PT RESTING ON BED COMFORTABLY;VERBALIZES RELIEF FROM PAIN; NO FACIAL GRIMMACING/MOANING NOTED;ALL MONITORS IN PLACED;WILL CONTINUE TO MONITOR PT.
[2018-06-04] MEDS ORDERED: ONDANSETRON 4 MG/2 ML VIAL IM/IVP PRN (16:40)
[2018-06-04] MEDS ORDERED: ACETAMINOPHEN 325 MG TAB PO PRN (16:40)
[2018-06-04] MEDS ORDERED: LORazepam 2 MG/ML VIAL IM/IVP PRN (16:40)
[2018-06-04] MEDS ORDERED: HYDROcodone/APAP 5/325 MG 1 TAB TAB PO PRN (16:40)
[2018-06-04] MEDS ORDERED: DOCUSATE SODIUM 100 MG GELCAP PO PRN (16:40)
[2018-06-04] MEDS ORDERED: ZOLPIDEM 5 MG TAB PO PRN (16:40)
[2018-06-04] MEDS ORDERED: MORPHINE SULFATE 2 MG/ML SYR IVP PRN (16:40)
--- NOTE | 2018-06-04 17:30 | NUR ---
RECEIVED REPORT FROM ER NURSE AT THE BEDSIDE. PT ADMITTED TO ER WITH PRIMARY DX OF RT HAND CELLULITIS , CC RT HAND PAIN. PER ER NURSE. PT WAS GIVEN 4 MG MORPHINE , VANCOMYCIN INFUSION COMPLETED, 0.9 NS INFUSING @80 ML/HR. PT HAS THE HISTORY OF RT BREAST MASTECTOMY. NO PROCEDURE, NO BP TO BE DONE ON THE RT SIDE . SIGH POSTED ON THE WALL. PT VS NOTED T 99.4, BP 149/70, RR 20, HR 88, PAIN 6/10, O2 SAT 97%. PT WAS ADMINISTERED TYLENOL FOR CORREIA. PT HAS IV ON LFT WRIST 22 G. INTACT, IVF INFUSING WELL. NO SIGN OF DISTRESS. PT LACTIC ACID 2.4. HAS THE HX OF DM, HTN . PT PRIMARILY SPEAKS [place], SON AT THE BEDSIDE, HELPS IN TRANSLATION. PT AOX4, AMBULATORY. BED AT THE LOWEST POSTION. CALL LIGHT WITHIN PT REACH. WILL CONTINUE TO MONITOR PT.
--- NOTE | 2018-06-04 17:31 | NUR ---
Patient will be admitted to care of DR Sanchez. Admited to Med surg. Will go to room 111 A. Belongings list completed. Report to WALLY Cuevas.
[2018-06-04 17:33] LABS: BARBITURATE, URINE NEG. ng/ml (NEG <=200); BENZODIAZEPINE, URINE NEG. ng/mL (NEG <=200); CANNABINOID, URINE NEG. ng/mL (NEG <=50); COCAINE, URINE NEG. ng/mL (NEG <=300); OPIATE, URINE NEG. ng/mL (NEG <=2000); PHENCYCLIDINE SCREEN,URINE NEG. ng/mL (NEG <=25)
[2018-06-04 17:53] LABS: MAGNESIUM 1.6 mg/dL (1.8-2.4); PHOSPHORUS 3.1 mg/dL (2.5-4.9); THYROID STIMULATING HORMONE 0.25 uIU/mL (0.34-3.74)
[2018-06-04] MEDS: NACL 0.9% 1,000 ML IV SCH (18:00)
[2018-06-04] MEDS ORDERED: DEXTROSE 50% 50 ML SYR IVP PRN (18:25)
[2018-06-04 18:38] VITALS: BP 149/70
--- NOTE | 2018-06-04 19:30 | NUR ---
RECEIVED REPORT FROM DAYSNJFT NURSE AT BEDSIDE FOR CONTINUITY OF CARE. PT AAOX4. PT MACEDONIAN SPEAKING. IV NOTED L WRIST 22G NS 80ML/HR. NO SOB NO S/S OF DISTRESS ON RA. PT HAS CELLULITIS TO THE RIGHT ARM. ARM RESTRICTION. BED LOWERED CALL LIGHT WITHIN REACH WILL CONTINUE TO MONITOR.
[2018-06-04] MEDS: METOPROLOL 50 MG TAB PO SCH (21:00)
[2018-06-04] MEDS ORDERED: MAGNESIUM OXIDE 400 MG TAB PO SCH (21:30)
[2018-06-04] MEDS ORDERED: POTASSIUM CHLORIDE 10 MEQ TABER PO SCH (21:30)
[2018-06-04] MEDS: CLINDAMYCIN 600 MG in DEXTROSE 5% 50 ML IV SCH (21:45)
[2018-06-04] MEDS: GEMFIBROZIL 600 MG TAB PO SCH (21:46)
[2018-06-04] MEDS: BLOOD GLUCOSE MONITORING 1 DEV DEV FS SCH (21:46)
[2018-06-04] MEDS: metFORMIN 500 MG TAB PO SCH (21:46)
[2018-06-04] MEDS: INSULIN LISPRO SLIDING SCALE 100 UNITS/ML VIAL SUBQ PRN (21:49)
--- NOTE | 2018-06-04 22:00 | NUR ---
PT IN STABLE CONDITION TOOK MEDS FINE. PT RESTING IN BED. WILL CONTINUE TO MONITOR.
[2018-06-05 00:13] VITALS: BP 107/56
--- NOTE | 2018-06-05 04:43 | NUR ---
PT IS CURRENTLY SLEEPING NO SOB NO S/S OF DISTRESS. WILL CONTINUE TO MONITOR.
[2018-06-05] MEDS: NACL 0.9% 1,000 ML IV SCH ×2 (05:06→10:42)
[2018-06-05] MEDS: CLINDAMYCIN 600 MG in DEXTROSE 5% 50 ML IV SCH ×3 (05:16→20:07)
[2018-06-05] MEDS: BLOOD GLUCOSE MONITORING 1 DEV DEV FS SCH ×4 (05:22→21:10)
[2018-06-05 06:55] LABS: T4 (THYROXINE) 6.1 ug/dL (4.5-12.0)
[2018-06-05 07:07] LABS: BASOPHILS % (AUTO) 0.3 % (0.0-2.0); EOSINOPHILS % (AUTO) 0.4 % (0.0-4.0); HEMATOCRIT 36.8 % (36-48); HEMOGLOBIN 12.7 g/dL (12.0-16.0); LYMPHOCYTES # (AUTO) 1.5 K/uL (2.5-16.5); LYMPHOCYTES % (AUTO) 22.7 % (20.5-51.1); MEAN CORPUSCULAR HEMOGLOBIN 31 pg (27-31); MEAN CORPUSCULAR HGB CONC 34 g/dL (33-37); MEAN CORPUSCULAR VOLUME 90.6 fL (80-94); MONOCYTES # (AUTO) 0.4 K/uL (0.8-1.0); MONOCYTES % (AUTO) 5.4 % (1.7-9.3); NEUTROPHILS # (AUTO) 4.6 K/uL (1.8-7.7); NEUTROPHILS % (AUTO) 71.2 % (42.2-75.2); PLATELET COUNT (AUTO) 162 K/uL (140-450); RED BLOOD CELL COUNT(AUTO) 4.07 MIL/uL (4.20-5.40); RED CELL DISTRIBUTION WIDTH 12.9 % (11.6-13.7); WHITE BLOOD COUNT (AUTO) 6.5 K/uL (4.8-10.8)
--- NOTE | 2018-06-05 07:10 | NUR ---
ASSUMED CONTINUITY OF CARE. NO SIGNS AND SYMPTOMS OF ACUTE DISTRESS NOTED. INITIAL ASSESSMENT DONE. EDEMA RUE, NOTED. ELEVATED WITH PILLOWS AND KEEP COMFORTABLE ON BED. EXPLAINED DIAGNOSIS, PLAN OF CARE, PAIN MANAGEMENT TEACHING, USE OF CALL LIGHT/BED/TV/BATHROOM. FALL PRECAUTION APPLIED. CALL LIGHT WITHIN REACH.
--- NOTE | 2018-06-05 07:19 | NUR ---
ENDORSED REPORT TO DAYSHIFT NURSE AT BEDSIDE FOR CONTINUITY OF CARE.
[2018-06-05 07:22] LABS: CHOL/HDL RATIO 3.7 (1-4.5)
[2018-06-05 07:25] LABS: ANION GAP 8.7 (8-16); CARBON DIOXIDE 28.5 mmol/L (21-32); CREATININE 0.4 mg/dL (0.6-1.3); POTASSIUM 3.2 mmol/L (3.5-5.1)
[2018-06-05 08:00] VITALS: BP 128/62
--- NOTE | 2018-06-05 08:08 | NUR ---
Patient's Plan of Care was discussed and reviewed with MANAGER WAREHOUSE: AZALIA POWELL
--- NOTE | 2018-06-05 08:37 | NUR ---
PATIENT HAS BEEN SCREENED AND CATEGORIZED HIGH NUTRITION RISK. PATIENT WILL BE SEEN WITHIN 1-2 DAYS OF ADMISSION. 06/05/18 06/06/[address]
[2018-06-05] MEDS: GEMFIBROZIL 600 MG TAB PO SCH ×2 (08:40→20:08)
[2018-06-05] MEDS: LORazepam 0.5 MG TAB PO SCH (08:40)
[2018-06-05] MEDS: metFORMIN 500 MG TAB PO SCH ×2 (08:40→20:07)
[2018-06-05] MEDS: ENALAPRIL 10 MG TAB PO SCH (08:41)
[2018-06-05] MEDS: METOPROLOL 50 MG TAB PO SCH ×2 (08:41→20:08)
[2018-06-05] MEDS: ECOTRIN 81 MG TABEC PO SCH (08:42)
[2018-06-05] MEDS: METHYLDOPA 250 MG TAB PO SCH (08:42)
[2018-06-05] MEDS: amLODIPine 5 MG TAB PO SCH (08:42)
[2018-06-05] MEDS: ANASTROZOLE 1 MG TAB PO SCH (08:43)
[2018-06-05] MEDS: ATORVASTATIN 20 MG TAB PO SCH (08:49)
[2018-06-05] MEDS ORDERED: RIVAROXABAN 10 MG TAB PO SCH (09:00)
--- NOTE | 2018-06-05 10:50 | NUR ---
TALENT DEVELOPMENT MANAGER DARVIN CAME AND SPOKE TO PT. AT BEDSIDE.
--- NOTE | 2018-06-05 11:18 | NUR ---
EBENEZER RODRIGUEZ CAME AND SPOKE TO PT. AND PT. SON AT BEDSIDE.
[2018-06-05 12:00] VITALS: BP_SYST 102; BP_SYST 122; BP_DIAS 67; BP_DIAS 68
[2018-06-05] MEDS ORDERED: POTASSIUM CHLORIDE 10 MEQ TABER PO SCH (12:00)
--- NOTE | 2018-06-05 12:00 | NUR ---
VITALS SIGNS STABLE. NO C/O PAIN. WILL MONITOR.
--- NOTE | 2018-06-05 15:46 | NUR ---
06/05/18 RD INITIAL ASSESSMENT COMPLETED PLEASE REFER TO NUTRITION ASSESSMENT UNDER CARE ACTIVITY FOR ESTIMATED NUTRITIONAL NEEDS. 1. CONTINUE CCHO60 AND CARDIAC DIET TOLERATED. 2. RD TO FOLLOW-UP 3-5 DAYS, MODERATE RISK. CHAITANYA CHANG RD
--- NOTE | 2018-06-05 16:25 | NUR ---
RESTING ON BED COMFORTABLY. NO SOB, NOTED. CALL LIGHT WITHIN REACH.
[2018-06-05] MEDS: INSULIN LISPRO SLIDING SCALE 100 UNITS/ML VIAL SUBQ PRN (17:10)
--- NOTE | 2018-06-05 19:14 | NUR ---
BEDSIDE REPORT GIVEN TO MIHIR BOOGIE -WALLY. IVF INFUSING WELL. IN STABLE CONDITION.
--- NOTE | 2018-06-05 19:15 | NUR ---
RECEIVED REPORT FROM DAYSNHFT NURSE AT BEDSIDE FOR CONTINUITY OF CARE. PT AAOX4. PT LUXEMBOURGISH SPEAKING. IV NOTED L WRIST 22G NS 80ML/HR. NO SOB NO S/S OF DISTRESS ON RA. PT HAS CELLULITIS TO THE RIGHT ARM. ARM RESTRICTION. BED LOWERED CALL LIGHT WITHIN REACH WILL CONTINUE TO MONITOR.
[2018-06-05 20:00] VITALS: BP 142/74
[2018-06-05] MEDS: RIVAROXABAN 10 MG TAB PO SCH (20:08)
--- NOTE | 2018-06-05 23:30 | NUR ---
PT SLEEPING. NO SOB. OFFSET PRINTER S/S OF DISTRESS ON RA. WILL CONTINUE TO MONITOR
--- NOTE | 2018-06-06 02:00 | NUR ---
PT SLEEPING NO SOB NO S/S OF DISTRESS. ON RA WILL CONTINUE TO MONITOR.
--- NOTE | 2018-06-06 05:00 | NUR ---
PT AWAKE IN BED/ PT AWARE OF POC TO GO HOME TODAY.PT IS AGREED WITH POC.
[2018-06-06] MEDS: CLINDAMYCIN 600 MG in DEXTROSE 5% 50 ML IV SCH (05:02)
[2018-06-06] MEDS: NACL 0.9% 1,000 ML IV SCH (05:09)
[2018-06-06] MEDS: BLOOD GLUCOSE MONITORING 1 DEV DEV FS SCH ×2 (05:09→11:30)
--- NOTE | 2018-06-06 07:19 | NUR ---
ENDORSED REPORT TO DAYSHIFT NURSE AT BEDSIDE FOR CONTINUITY OF CARE.
--- NOTE | 2018-06-06 07:20 | NUR ---
RECEIVED REPORT FROM CAR DEALER NURSE AT BEDSIDE. PT AAOX4. IV NOTED L HAND 22G, RUNNING NS 80ML/HR. NO NO S/S OF DISTRESS ON ROOM AIR. RIGHT ARM IS SWOLLEN. PT STATED THE SWELLING HAS GONE DOWN. BED IN LOWEST POSITION, CALL LIGHT WITHIN REACH, WILL CONTINUE TO MONITOR.
[2018-06-06 07:43] LABS: BASOPHILS % (AUTO) 0.2 % (0.0-2.0); EOSINOPHILS # (AUTO) 0.1 K/uL (0-0.4); EOSINOPHILS % (AUTO) 2.4 % (0.0-4.0); HEMATOCRIT 36.9 % (36-48); HEMOGLOBIN 12.6 g/dL (12.0-16.0); LYMPHOCYTES # (AUTO) 1.9 K/uL (2.5-16.5); LYMPHOCYTES % (AUTO) 37.8 % (20.5-51.1); MEAN CORPUSCULAR HEMOGLOBIN 31 pg (27-31); MEAN CORPUSCULAR HGB CONC 34 g/dL (33-37); MEAN CORPUSCULAR VOLUME 90.7 fL (80-94); MONOCYTES # (AUTO) 0.4 K/uL (0.8-1.0); MONOCYTES % (AUTO) 8.1 % (1.7-9.3); NEUTROPHILS # (AUTO) 2.6 K/uL (1.8-7.7); NEUTROPHILS % (AUTO) 51.5 % (42.2-75.2); PLATELET COUNT (AUTO) 170 K/uL (140-450); RED BLOOD CELL COUNT(AUTO) 4.07 MIL/uL (4.20-5.40); WHITE BLOOD COUNT (AUTO) 5.1 K/uL (4.8-10.8)
[2018-06-06 07:51] LABS: ANION GAP 10.7 (8-16); CARBON DIOXIDE 26.1 mmol/L (21-32); CREATININE 0.4 mg/dL (0.6-1.3); POTASSIUM 3.8 mmol/L (3.5-5.1)
[2018-06-06 07:52] LABS: MAGNESIUM 2.1 mg/dL (1.8-2.4); PHOSPHORUS 3.5 mg/dL (2.5-4.9)
[2018-06-06 08:00] VITALS: BP 133/68
[2018-06-06] MEDS: METOPROLOL 50 MG TAB PO SCH (09:03)
[2018-06-06] MEDS: LORazepam 0.5 MG TAB PO SCH (09:04)
[2018-06-06] MEDS: metFORMIN 500 MG TAB PO SCH (09:04)
[2018-06-06] MEDS: ATORVASTATIN 20 MG TAB PO SCH (09:05)
[2018-06-06] MEDS: GEMFIBROZIL 600 MG TAB PO SCH (09:05)
[2018-06-06] MEDS: amLODIPine 5 MG TAB PO SCH (09:05)
[2018-06-06] MEDS: ECOTRIN 81 MG TABEC PO SCH (09:06)
[2018-06-06] MEDS: ENALAPRIL 10 MG TAB PO SCH (09:06)
[2018-06-06] MEDS: METHYLDOPA 250 MG TAB PO SCH (09:08)
[2018-06-06] MEDS: ANASTROZOLE 1 MG TAB PO SCH (09:09)
[2018-06-06] MEDS: RIVAROXABAN 10 MG TAB PO SCH (09:27)
[2018-06-06] MEDS ORDERED: XAR10 PO (10:44)
[2018-06-06] MEDS ORDERED: LACT1CAP63 PO (10:44)
[2018-06-06] MEDS ORDERED: CLIN300C2 PO (10:44)
--- NOTE | 2018-06-06 11:30 | NUR ---
IV CATH REMOVED, TIP INTACT, PRESSURE APPLIED.
--- NOTE | 2018-06-06 12:00 | NUR ---
PT DISCHARGED PER MD ORDER. DISCHARGE INSTRUCTION AND MED TEACHING GIVEN. PT'S SON IS HERE TRANSLATING FOR PT. PT VERBALIZED UNDERSTANDING. PT IS AWARE OF SCHEDULED APPT WITH DR PAIGE. PT DENIES ANY PAIN AT THIS TIME. PT LEFT WITH ALL HER BELONGINGS AND IN STABLE CONDITION.
[2018-06-06] MEDS ORDERED: CLINDAMYCIN PHOS 600MG/D5W PM 50 ML IV SCH (13:00)
== END 2018-06-06 12:00 | disposition home or self-care (01) | DRG 720 ==
LOC: MED 13:25 → MTU 16:36
PROVIDERS: ADMIT General Practice; ATTEND General Practice
DX: A41.9 Sepsis, unspecified organism (principal); E87.8 Other disorders of electrolyte and fluid balance, not elsewhere classified; E87.1 Hypo-osmolality and hyponatremia; I10 Essential (primary) hypertension; L03.113 Cellulitis of right upper limb; E11.9 Type 2 diabetes mellitus without complications; E83.42 Hypomagnesemia; E02 Subclinical iodine-deficiency hypothyroidism; E78.5 Hyperlipidemia, unspecified; F41.9 Anxiety disorder, unspecified; E87.6 Hypokalemia; Z85.3 Personal history of malignant neoplasm of breast; I89.0 Lymphedema, not elsewhere classified; Z90.11 Acquired absence of right breast and nipple; Z90.49 Acquired absence of other specified parts of digestive tract; Z90.710 Acquired absence of both cervix and uterus; Z79.899 Other long term (current) drug therapy; Z71.3 Dietary counseling and surveillance; E66.9 Obesity, unspecified; Z68.30 Body mass index [BMI] 30.0-30.9, adult
CPT/HCPCS: 36415; 71045; 80048; 80053; 80305; 81001; 82948; 83036; 83605; 83690; 83735; 84100; 84134; 84436; 84443; 84484; 85025; 85610; 85730; 87040; 87081; 87086; 93005; 93925; 93970; 93971; 96365; 96366; 96375; 99285; J1815; J2270; J2765; J3370; J3490; J7030; J7060; Q0092

== ENCOUNTER 2018-08-02 09:50 | Inpatient (IN) | payer MEDICAID ==
[~2018-08-02] VITALS: Ht 160 cm; Wt 72.6 kg
[~2018-08-02 09:50] MED LIST changes: +CLIN300C2 PO; -PENI500T19 PO
[2018-08-02 10:03] VITALS: BP 141/76
--- NOTE | 2018-08-02 10:08 | NUR ---
PT C/O RIGHT ARM PAIN AND SWELLING THAT STARTED AT 0200 THIS MORNING. PT STATES THIS HAPPENS A LOT, 'LYMPHEDEMA'. SKIN IS PINK/WARM/DRY; AAOX4 WITH EVEN AND STEADY GAIT; LUNGS CLEAR BL; HR EVEN AND REGULAR; PT DENIES ANY FEVER, CP, SOB, OR COUGH AT THIS TIME; PATIENT STATES PAIN OF 7/10 AT THIS TIME; VSS; PATIENT POSITIONED FOR COMFORT; HOB ELEVATED; BEDRAILS UP X1; BED DOWN. ER MD MADE AWARE OF PT STATUS.
[2018-08-02] MEDS ORDERED: CLINDAMYCIN 900 MG in DEXTROSE 5% 100 ML IV ONE (10:20)
[2018-08-02 10:40] LABS: HEMATOCRIT 39.1 % (36-48); HEMOGLOBIN 13.4 g/dL (12.0-16.0); MEAN CORPUSCULAR HEMOGLOBIN 30 pg (27-31); MEAN CORPUSCULAR HGB CONC 34 g/dL (33-37); MEAN CORPUSCULAR VOLUME 88.6 fL (80-94); PLATELET COUNT (AUTO) 148 K/uL (140-450); RED BLOOD CELL COUNT(AUTO) 4.42 MIL/uL (4.20-5.40); RED CELL DISTRIBUTION WIDTH 12.4 % (11.6-13.7); WHITE BLOOD COUNT (AUTO) 20.2 K/uL (4.8-10.8)
[2018-08-02] MEDS ORDERED: CLINDAMYCIN 900 MG/6 ML VIAL IV ONE (10:42)
[2018-08-02 11:14] LABS: ANION GAP 11.7 (8-16); CARBON DIOXIDE 28.7 mmol/L (21-32); CREATININE 0.8 mg/dL (0.6-1.3); POTASSIUM 3.4 mmol/L (3.5-5.1)
[2018-08-02 11:29] LABS: ALBUMIN 3.6 g/dL (3.4-5.0); TOTAL BILIRUBIN 0.5 mg/dL (0.0-1.0)
[2018-08-02 11:36] LABS: LYMPHOCYTES % (MANUAL) 1 % (20-46); MONOCYTES % (MANUAL) 1 % (5-12)
[2018-08-02] MEDS ORDERED: HYDROcodone/APAP 7.5/325 MG 1 TAB PO PRN (12:10)
[2018-08-02] MEDS ORDERED: ZOLPIDEM 5 MG TAB PO PRN (12:10)
[2018-08-02] MEDS ORDERED: ONDANSETRON 4 MG/2 ML VIAL IVP PRN (12:10)
[2018-08-02 12:56] LABS: PROTHROMBIN TIME 9.7 secs (10.8-13.4)
--- NOTE | 2018-08-02 13:05 | NUR ---
Patient will be admitted to care of DR. JOYNER. Admited to [facility]. Will go to room 125B. Belongings list completed. Report to WALLY GOLDMAN.
[2018-08-02 13:12] VITALS: BP 141/62
--- NOTE | 2018-08-02 13:12 | NUR ---
RECEIVED PT FROM ER NURSE, VIA VINCENT, PT IS AWAKE AND ALERT WITH SON ON THE BEDSIDE. PT HAS AN IV LINE ON THE LEFT AC G. 20 ON SALINE LOCK. PT WAS ASSISTED TO THE BED, SIDE RAILS ARE UP AND CALL LIGHT WITHIN REACH. PT VERBALIZED A PAIN RATE OF 7/10 FOR HER HEADACHE, PT' RT ARM IS SWOLLEN AND RED. VITAL SIGNS WERE TAKEN AND TEMPERATURE IS ELEVATED, 100.4. AND WILL MEDICATE WITH TYLENOL PER PROTOCOL AND PT'S REQUEST. NO OTHER UNTOWARD SX NOTED. WILL CONTINUE TO MONITOR PT.
[2018-08-02 13:21] LABS: APPEARANCE,URINE CLEAR (CLEAR); BILIRUBIN,URINE NEGATIVE (NEGATIVE); BLOOD, URINE TRACE-I (NEGATIVE); COLOR,URINE YELLOW (YELLOW); LEUKOCYTE ESTERASE ,URINE NEGATIVE (NEGATIVE); NITRITE, URINE NEGATIVE (NEGATIVE); UGLUCOSE 2+ (NEGATIVE)
[2018-08-02 13:31] LABS: RBC,URINE 0-5 (RARE) /HPF (0-5); WBC,URINE 0-5 (RARE) /HPF (0-5)
[2018-08-02 13:45] LABS: BARBITURATE, URINE NEG. ng/ml (NEG <=200); BENZODIAZEPINE, URINE NEG. ng/mL (NEG <=200); CANNABINOID, URINE NEG. ng/mL (NEG <=50); COCAINE, URINE NEG. ng/mL (NEG <=300); OPIATE, URINE NEG. ng/mL (NEG <=2000); PHENCYCLIDINE SCREEN,URINE NEG. ng/mL (NEG <=25)
[2018-08-02 13:54] LABS: FREE T4 (FREE THYROXINE) 0.98 ng/dL (0.76-1.46); MAGNESIUM 1.4 mg/dL (1.8-2.4); PHOSPHORUS 4.3 mg/dL (2.5-4.9); THYROID STIMULATING HORMONE 0.25 uIU/mL (0.34-3.74)
[2018-08-02] MEDS ORDERED: POTASSIUM CHLORIDE 10 MEQ TABER PO SCH (14:00)
--- NOTE | 2018-08-02 14:05 | NUR ---
JUAN FROM LAB CALLED AND REPORTED THE LACTIC ACID OF PT OF 3.4, ACKNOWLEDGED NAD WILL INFORM THE MD.
--- NOTE | 2018-08-02 14:15 | NUR ---
REPORTED TO DR. ANDRADE/ DR. AMAYA THE CRITICAL LAB VALUE OF LACTIC ACID OF 3.4 FOR THE PTMD ACKNOWLEDGED AND SAID TO PLACE AN ORDER.
[2018-08-02] MEDS ORDERED: ACETAMINOPHEN 325 MG TAB ONE (14:17)
[2018-08-02] MEDS ORDERED: VANCOMYCIN PER PHARMACY MC PRN (14:25)
[2018-08-02] MEDS ORDERED: MAG SULF 2000 MG/WATER PREMIX 100 ML IV ONE (14:25)
[2018-08-02] MEDS: ACETAMINOPHEN 325 MG TAB PO PRN ×2 (14:32→20:36)
[2018-08-02] MEDS: NACL 0.9% 1,000 ML IV SCH ×2 (14:34→23:18)
--- NOTE | 2018-08-02 14:45 | NUR ---
CXR BEING DONE TO THE PT NOW.
--- NOTE | 2018-08-02 14:51 | NUR ---
CXR WAS DONE.
[2018-08-02] MEDS: MAGNESIUM SULFATE 1GM in DEXTROSE 5% 100 ML PREMIX IV SCH ×2 (15:18→17:23)
[2018-08-02] MEDS ORDERED: NON-FORMULARY ITEM (Meloxicam* (Mobic*) 7.5 MG) PO PRN (15:50)
[2018-08-02 16:00] VITALS: BP 127/54
[2018-08-02] MEDS: BLOOD GLUCOSE MONITORING 1 DEV DEV FS SCH ×2 (17:26→20:09)
--- NOTE | 2018-08-02 17:26 | NUR ---
PT WAS ASSISTED TO THE BATHROOM THEN BACK TO BED, SECOND BAG OF MAGNESIUM WAS STARTED. PT TOLERATED IT AND NO SIGN OF DISTRESS NOTED. WILL MONITOR PT.
[2018-08-02] MEDS: INSULIN LISPRO SLIDING SCALE 100 UNITS/ML VIAL SUBQ PRN ×2 (17:42→20:38)
[2018-08-02] MEDS: VANCOMYCIN 1,250 MG in DEXTROSE 5% 250 ML IV SCH (18:50)
--- NOTE | 2018-08-02 18:50 | NUR ---
PT IS AWAKE AND VANCOMYCIN WAS GIVEN TO THE PT AND PT TOLERATED IT. NO NEGATIVE REACTION NOTED.
[2018-08-02 18:55] VITALS: BP 141/62
--- NOTE | 2018-08-02 19:35 | NUR ---
RECEIVED REPORT FROM DAY SHIFT NURSE, GLO, AT PT BEDSIDE. PT IN STABLE CONDITION. PT IS AAOX4. PT IS ON RA. RESPIRATIONS ARE EVEN AND UNLABORED. PT HAS R UE CELLULITIS WITH SOME SWELLING. IV ACCESS IN L AC 20G WITH IV FLUIDS RUNNING PER MD ORDERS. IV IS PATENT AND INTACT. BED IS LOCKED, LOW POSITION WITH SIDE RAILS UP X2. BOARD UPDATED. CALL LIGHT IS WITHIN REACH. WILL CONTINUE TO MONITOR PT.
--- NOTE | 2018-08-02 19:35 | NUR ---
ENDORSED PT TO MEDICAL CLAIMS MANAGER NURSE FOR CONTINUITY OF CARE. PT IS STABLE AT THIS TIME.
[2018-08-02 20:00] VITALS: BP 149/63
[2018-08-02] MEDS: GEMFIBROZIL 600 MG TAB PO SCH (20:35)
[2018-08-02] MEDS: DOCUSATE SODIUM 100 MG GELCAP PO SCH (20:35)
[2018-08-02] MEDS: METOPROLOL 50 MG TAB PO SCH (20:35)
--- NOTE | 2018-08-02 20:35 | NUR ---
SCHEDULED MEDICATIONS ADMINISTERED. BS CHECKED, 209. INSULIN COVERAGE GIVEN PER MD ORDERS. PT TEMPERATURE 100.4 TYLENOL GIVEN. PT TOLERATED WELL. WILL CONTINUE TO MONITOR.
[2018-08-02] MEDS: INSULIN LANTUS 100 UNITS/ML 10 ML VIAL SUBQ SCH (20:37)
--- NOTE | 2018-08-02 22:16 | NUR ---
PT RESTING COMFORTABLY IN BED. NO SIGNS OR SYMPTOMS OF DISTRESS. WILL CONTINUE TO MONITOR.
[2018-08-03] VITALS: BP 126/59
--- NOTE | 2018-08-03 00:13 | NUR ---
NO CHANGE IN CONDITION. VS WITHIN NORMAL LIMITS. WILL CONTINUE TO MONITOR PT.
--- NOTE | 2018-08-03 02:06 | NUR ---
PT ASLEEP IN BED. NO SIGNS OR SYMPTOMS OF DISTRESS. WILL CONTINUE TO MONITOR.
[2018-08-03] MEDS: VANCOMYCIN 1,250 MG in DEXTROSE 5% 250 ML IV SCH ×2 (03:34→16:13)
--- NOTE | 2018-08-03 03:34 | NUR ---
ADMINISTERED SCHEDULED ANTIBIOTIC. PT TOLERATING WELL. WILL CONTINUE TO MONITOR.
[2018-08-03] MEDS ORDERED: INFLUENZA VIRUS VACCINE QUAD 0.5 ML SYR IMVAC PRN (05:25)
[2018-08-03] MEDS: BLOOD GLUCOSE MONITORING 1 DEV DEV FS SCH ×4 (05:56→20:59)
[2018-08-03] MEDS: INSULIN LISPRO SLIDING SCALE 100 UNITS/ML VIAL SUBQ PRN ×4 (05:59→21:08)
--- NOTE | 2018-08-03 05:59 | NUR ---
BS CHECKED, 205. INSULIN COVERAGE GIVEN PER MD ORDERS. PT TOLERATED WELL. WILL CONTINUE TO MONITOR.
[2018-08-03] MEDS: NACL 0.9% 1,000 ML IV SCH ×3 (07:13→22:37)
--- NOTE | 2018-08-03 07:17 | NUR ---
ENDORSED PT TO DAY SHIFT NURSE FOR CONTINUITY OF CARE. PT IN STABLE CONDITION.
--- NOTE | 2018-08-03 07:51 | NUR ---
PATIENT AWAKE, ALERT. RESPIRATION EVEN, UNLABOR ON ROOM AIR. SKIN DRY AND WARM. IV PATENT AND INTACT. COMPLAINED OF HEADACHE 03/30. DENIED N/V. PLAN OF CARE WAS DISCUSSED WITH PATIENT. US TECH WAS AT BEDSIDE. CALL LIGHT WITHIN REACH
[2018-08-03 08:00] VITALS: BP 127/61
[2018-08-03] MEDS: ACETAMINOPHEN 325 MG TAB PO PRN (08:53)
[2018-08-03] MEDS: amLODIPine 5 MG TAB PO SCH (08:53)
[2018-08-03] MEDS: METOPROLOL 50 MG TAB PO SCH ×2 (08:53→21:05)
[2018-08-03] MEDS: LACTOBACILLUS RHAMNOSUS GG 1 EACH CAP PO SCH (08:53)
[2018-08-03] MEDS: LORazepam 0.5 MG TAB PO SCH (08:54)
[2018-08-03] MEDS: ATORVASTATIN 20 MG TAB PO SCH (08:54)
[2018-08-03] MEDS: GEMFIBROZIL 600 MG TAB PO SCH ×2 (08:54→21:06)
[2018-08-03] MEDS: ENALAPRIL 10 MG TAB PO SCH (08:54)
[2018-08-03] MEDS: ECOTRIN 81 MG TABEC PO SCH (08:54)
[2018-08-03] MEDS: ANASTROZOLE 1 MG TAB PO SCH (08:55)
[2018-08-03] MEDS: METHYLDOPA 250 MG TAB PO SCH (08:55)
[2018-08-03] MEDS: DOCUSATE SODIUM 100 MG GELCAP PO SCH ×2 (08:55→21:05)
[2018-08-03] MEDS ORDERED: SAXAGLIPTIN HCL 5 MG PO SCH (09:00)
[2018-08-03 09:18] LABS: BASOPHILS % (AUTO) 0.1 % (0.0-2.0); EOSINOPHILS % (AUTO) 0.4 % (0.0-4.0); HEMATOCRIT 37.8 % (36-48); HEMOGLOBIN 13.1 g/dL (12.0-16.0); LYMPHOCYTES # (AUTO) 1.4 K/uL (2.5-16.5); MEAN CORPUSCULAR HEMOGLOBIN 31 pg (27-31); MEAN CORPUSCULAR HGB CONC 35 g/dL (33-37); MEAN CORPUSCULAR VOLUME 89.7 fL (80-94); MONOCYTES # (AUTO) 0.4 K/uL (0.8-1.0); MONOCYTES % (AUTO) 3.7 % (1.7-9.3); NEUTROPHILS # (AUTO) 8.6 K/uL (1.8-7.7); NEUTROPHILS % (AUTO) 82.8 % (42.2-75.2); PLATELET COUNT (AUTO) 152 K/uL (140-450); RED BLOOD CELL COUNT(AUTO) 4.21 MIL/uL (4.20-5.40); RED CELL DISTRIBUTION WIDTH 12.6 % (11.6-13.7); WHITE BLOOD COUNT (AUTO) 10.4 K/uL (4.8-10.8)
--- NOTE | 2018-08-03 09:45 | NUR ---
PATIENT WAS AWAKE, ALERT. RESPIRATION EVEN, UNLABOR ON ROOM AIR. NO DISTRESS NOTED AT THIS TIME. FAMILY AT BEDSIDE. CALL LIGHT WITHIN REACH
[2018-08-03 10:11] LABS: ANION GAP 11.6 (8-16); CARBON DIOXIDE 26.1 mmol/L (21-32); CREATININE 0.6 mg/dL (0.6-1.3); POTASSIUM 3.7 mmol/L (3.5-5.1)
[2018-08-03 10:18] LABS: MAGNESIUM 2.1 mg/dL (1.8-2.4); PHOSPHORUS 2.7 mg/dL (2.5-4.9)
--- NOTE | 2018-08-03 11:30 | NUR ---
PATIENT WAS SLEEPING COMFORTABLY. RESPIRATION EVEN, UNLABOR ON ROOM AIR. NO DISTRESS NOTED AT THIS TIME
--- NOTE | 2018-08-03 13:40 | NUR ---
PATIENT WAS AWAKE, ALERT. RESPIRATION EVEN, UNLABOR ON ROOM AIR. NO DISTRESS NOTED AT THIS TIME. FAMILY AT BEDSIDE. CALL LIGHT WITHIN REACH
[2018-08-03 16:00] VITALS: BP 134/62
--- NOTE | 2018-08-03 16:00 | NUR ---
PATIENT AWAKE, ALERT. RESPIRATION EVEN, UNLABOR ON ROOM AIR. DENIED PAIN AT THIS TIME. NO DISTRESS NOTED. CALL LIGHT WITHIN REACH
--- NOTE | 2018-08-03 18:27 | NUR ---
PATIENT AWAKE, ALERT. RESPIRATION EVEN, UNLABOR ON ROOM AIR. IV PATENT AND INTACT. NO DISTRESS NOTED AT THIS TIME. CALL LIGHT WITHIN REACH
--- NOTE | 2018-08-03 19:15 | NUR ---
RECEIVED REPORT FROM DAY SHIFT NURSE, PRANAV, AT PT BEDSIDE. PT IN STABLE CONDITION. PT FAMILY IS AT BEDSIDE. PT IS AAOX4. PT ON RA. RESPIRATIONS ARE EVEN AND UNLABORED. IV ACCESS IN L AC 20G WITH IVF RUNNING PER MD ORDERS. IV IS PATENT AND INTACT. PT HAS CELLULITIS AND SWELLING TO KAN. PT HAS NO C/O PAIN AT THIS TIME. BED IS LOCKED, LOW POSITION WITH SIDE RAILS UP X2. CALL LIGHT IS WITHIN REACH. BOARD UPDATED. WILL CONTINUE TO MONITOR PT.
--- NOTE | 2018-08-03 19:15 | NUR ---
ENDORSEMENT GIVEN TO THE TEACHER ADVISOR NURSE. PATIENT IS STABLE AT THIS TIME
[2018-08-03] MEDS: INSULIN LANTUS 100 UNITS/ML 10 ML VIAL SUBQ SCH (21:09)
--- NOTE | 2018-08-03 21:12 | NUR ---
ADMINISTERED SCHEDULED MEDICATIONS. INSULIN COVERAGE GIVEN FOR BS OF 191. PT TOLERATED WELL. PT STATED SHE HAD NOT BEEN GIVEN DINNER. PT NOW HAS DINNER TRAY. HOME MEDICATION, ONGLYZA, BROUGHT IN BY FAMILY. COLLECTED AND PLACED IN MEDICATION BAG TO BE SENT TO PHARMACY. ALL PT NEEDS ARE MET AT THIS TIME. WILL CONTINUE TO MONITOR.
[2018-08-04] VITALS: BP 138/64
--- NOTE | 2018-08-04 | NUR ---
PT VS WITHIN NORMAL LIMITS. PT RESTING COMFORTABLY IN BED. NO SIGNS OR SYMPTOMS OF DISTRESS. WILL CONTINUE TO MONITOR.
--- NOTE | 2018-08-04 01:50 | NUR ---
PT ASLEEP IN BED. NO SIGNS OR SYMPTOMS OF DISTRESS. WILL CONTINUE TO MONITOR.
[2018-08-04] MEDS: NACL 0.9% 1,000 ML IV SCH (03:56)
[2018-08-04] MEDS: VANCOMYCIN 1,250 MG in DEXTROSE 5% 250 ML IV SCH (03:56)
--- NOTE | 2018-08-04 03:56 | NUR ---
ADMINISTERED SCHEDULED ANTIBIOTIC AND STARTED NEW BAG OF IVF. PT RESTING COMFORTABLY IN BED. ALL NEEDS ARE MET AT THIS TIME. WILL CONTINUE TO MONITOR.
[2018-08-04] MEDS: BLOOD GLUCOSE MONITORING 1 DEV DEV FS SCH ×2 (06:20→12:29)
[2018-08-04] MEDS: INSULIN LISPRO SLIDING SCALE 100 UNITS/ML VIAL SUBQ PRN ×2 (06:31→12:47)
--- NOTE | 2018-08-04 06:31 | NUR ---
INSULIN COVERAGE GIVEN PER MD ORDERS FOR BS 209. PT TOLERATED WELL. WILL CONTINUE TO MONITOR.
--- NOTE | 2018-08-04 07:09 | NUR ---
ENDORSED PT TO DAY SHIFT NURSEDRAKE FOR CONTINUITY OF CARE. PT IN STABLE CONDITION.
--- NOTE | 2018-08-04 07:30 | NUR ---
RECEIVED REPORT FROM EXECUTIVE SEARCH CONSULTANT RN AT BEDSIDE. PT IN STABLE CONDITION. NO COMPLAINTS OF PAIN OR DISCOMFORT. RT UA CELLULITIS NOTED. 2+ EDEMA TO RT UA WITH SKIN WARMER TO TOUCH COMPARED TO LT UA. SKIN INTACT. LUNGS CTA. HEART RHYTHM REGULAR. PT IS AMBULATORY WITHOUT ASSIST. IV SITE PATENT AND ASYMPTOMATIC, INFUSING IVF PER MD ORDERS. ALL SAFETY PRECAUTIONS IN PLACE, WILL CONTINUE TO MONITOR.
[2018-08-04 07:46] LABS: BASOPHILS % (AUTO) 0.3 % (0.0-2.0); EOSINOPHILS # (AUTO) 0.2 K/uL (0-0.4); EOSINOPHILS % (AUTO) 3.8 % (0.0-4.0); HEMATOCRIT 35.6 % (36-48); LYMPHOCYTES # (AUTO) 1.3 K/uL (2.5-16.5); LYMPHOCYTES % (AUTO) 28.1 % (20.5-51.1); MEAN CORPUSCULAR HEMOGLOBIN 31 pg (27-31); MEAN CORPUSCULAR HGB CONC 34 g/dL (33-37); MEAN CORPUSCULAR VOLUME 91.6 fL (80-94); MONOCYTES # (AUTO) 0.3 K/uL (0.8-1.0); MONOCYTES % (AUTO) 6.7 % (1.7-9.3); NEUTROPHILS # (AUTO) 2.8 K/uL (1.8-7.7); NEUTROPHILS % (AUTO) 61.1 % (42.2-75.2); PLATELET COUNT (AUTO) 133 K/uL (140-450); RED BLOOD CELL COUNT(AUTO) 3.88 MIL/uL (4.20-5.40); RED CELL DISTRIBUTION WIDTH 12.3 % (11.6-13.7); WHITE BLOOD COUNT (AUTO) 4.6 K/uL (4.8-10.8)
[2018-08-04 08:00] VITALS: BP 151/69
[2018-08-04 08:35] LABS: ANION GAP 10.9 (8-16); CARBON DIOXIDE 26.6 mmol/L (21-32); CREATININE 0.6 mg/dL (0.6-1.3); POTASSIUM 3.5 mmol/L (3.5-5.1)
[2018-08-04 08:39] LABS: MAGNESIUM 1.7 mg/dL (1.8-2.4); PHOSPHORUS 3.2 mg/dL (2.5-4.9)
[2018-08-04] MEDS ORDERED: CEPH250C16 PO ×2 (08:45→09:09)
--- NOTE | 2018-08-04 09:00 | NUR ---
DR. DOW INFORMED PATIENT OF PLANS TO DISCHARGE TODAY AND GAVE MEDICATION TEACHING.
--- NOTE | 2018-08-04 09:15 | NUR ---
PER DR. DOW, DISCHARGE PATIENT AT 1330 TODAY. FAMILY MEMBER WILL BE AVAILABLE TO FINISHING AREA SUPERVISOR PATIENT THEN.
[2018-08-04] MEDS: amLODIPine 5 MG TAB PO SCH (09:45)
[2018-08-04] MEDS: GEMFIBROZIL 600 MG TAB PO SCH (09:45)
[2018-08-04] MEDS: LACTOBACILLUS RHAMNOSUS GG 1 EACH CAP PO SCH (09:45)
[2018-08-04] MEDS: METOPROLOL 50 MG TAB PO SCH (09:46)
[2018-08-04] MEDS: ATORVASTATIN 20 MG TAB PO SCH (09:46)
[2018-08-04] MEDS: ECOTRIN 81 MG TABEC PO SCH (09:46)
[2018-08-04] MEDS: DOCUSATE SODIUM 100 MG GELCAP PO SCH (09:46)
[2018-08-04] MEDS: ENALAPRIL 10 MG TAB PO SCH (09:46)
[2018-08-04] MEDS: LORazepam 0.5 MG TAB PO SCH (09:47)
[2018-08-04] MEDS: ANASTROZOLE 1 MG TAB PO SCH (09:47)
[2018-08-04] MEDS: METHYLDOPA 250 MG TAB PO SCH (09:48)
--- NOTE | 2018-08-04 09:56 | NUR ---
SCHEDULED MEDICATIONS ADMINISTERED PER MD ORDERS.
[2018-08-04] MEDS ORDERED: ONGLYZA 5MG PO SCH (12:00)
[2018-08-04] MEDS ORDERED: MAG SULF 2000 MG/WATER PREMIX 50 ML IV ONE (12:05)
[2018-08-04] MEDS ORDERED: MAGNESIUM SULFATE 1GM in DEXTROSE 5% 100 ML PREMIX IV SCH (13:00)
--- NOTE | 2018-08-04 13:00 | NUR ---
INFORMED DR. DOW OF MAG 1.7 FROM MORNING LABS. DOCTOR TO ORDER MEDICATION.
[2018-08-04] MEDS ORDERED: MAGNESIUM OXIDE 400 MG TAB PO SCH (13:30)
--- NOTE | 2018-08-04 13:30 | NUR ---
DISCHARGE PAPERWORK, INCLUDING INSTRUCTIONS TO FOLLOW UP WITH PCP AND NEW RX, GIVEN TO PATIENT. PT PREFERS SON AT BEDSIDE TO TRANSLATE. NEW RX TEACHING AND MED RECON TEACHING GIVEN. PT AND FAMILY MEMBER VERBALIZED COMPLETE UNDERSTANDING OF ALL DISCHARGE TEACHING. OFFERED FLU VACCINE AND PNEUMOVAX TO PATIENT BUT PATIENT WISHES TO RECEIVE AT PCP. ID BANDS REMOVED. IV SITE REMOVED WITH MINIMAL BLOOD LOSS AND LUMEN COMPLETELY INTACT. ALL PERSONAL BELONGINGS ARE WITH PT. PT TO GO HOME WITH SON VIA PRIVATE VEHICLE. Addendum: 08/04/18 at 1650 by Nidia Medina Meng, RN ESCORTED PT TO PHARMACY AND PICKED UP PATIENT'S HOME MEDICATION. PT LEFT HOSPITAL WITH HOME MEDICATION.
--- NOTE | 2018-08-04 14:00 | NUR ---
DID NOT ADMINISTER THE MAGNESIUM SULFATE IVPB, EVEN THOUGH IT WAS SCANNED AND SAVED TO [facility]. ADMINISTERED THE PO MAG OXIDE INSTEAD PER DOCTOR ORDERS. WILL RETURN MAG SULFATE IVPB TO PHARMACY.
[2018-08-05] MEDS ORDERED: ONGLYZA 5 MG PO SCH (09:00)
== END 2018-08-04 13:30 | disposition home or self-care (01) | DRG 720 ==
LOC: MED 09:50 → MMU 12:53 → MTU 08-04 08:27
PROVIDERS: ADMIT General Practice; ATTEND General Practice
DX: A41.9 Sepsis, unspecified organism (principal); E11.51 Type 2 diabetes mellitus with diabetic peripheral angiopathy without gangrene; E11.65 Type 2 diabetes mellitus with hyperglycemia; I10 Essential (primary) hypertension; R65.20 Severe sepsis without septic shock; L03.113 Cellulitis of right upper limb; E78.5 Hyperlipidemia, unspecified; R74.0 Nonspecific elevation of levels of transaminase and lactic acid dehydrogenase [LDH]; I89.0 Lymphedema, not elsewhere classified; E87.6 Hypokalemia; E83.42 Hypomagnesemia; E66.3 Overweight; Z68.28 Body mass index [BMI] 28.0-28.9, adult; Z85.3 Personal history of malignant neoplasm of breast; Z90.49 Acquired absence of other specified parts of digestive tract; Z86.718 Personal history of other venous thrombosis and embolism; Z90.710 Acquired absence of both cervix and uterus; Z83.3 Family history of diabetes mellitus; Z80.1 Family history of malignant neoplasm of trachea, bronchus and lung; I73.9 Peripheral vascular disease, unspecified
CPT/HCPCS: 36415; 71045; 76536; 80048; 80053; 80305; 81001; 82150; 82948; 83605; 83690; 83735; 83880; 84100; 84439; 84443; 84484; 85025; 85610; 85730; 87040; 87081; 93970; 96365; 99285; J1815; J3370; J3490; J7030; J7060; Q0092

== ENCOUNTER 2018-11-25 10:49 | Emergency (ER) | payer MEDICAID ==
[~2018-11-25] VITALS: Ht 154.9 cm; Wt 72.6 kg
[~2018-11-25 10:49] MED LIST changes: +ANAS1TAB56 PO; -ARI1 PO; +CEPH250C16 PO
[2018-11-25 10:57] VITALS: BP 166/86
--- NOTE | 2018-11-25 11:00 | NUR ---
TO LOBBY A/W BED, AMBULATORY, [facility] NOTED
--- NOTE | 2018-11-25 13:31 | NUR ---
PATIENT AMBULATED TO BED 10
--- NOTE | 2018-11-25 13:37 | NUR ---
Pt presents with c/o diffuse abdominal pain and lower back pain. Also c/o nausea and vomiting. Pt states 8 days ago she had an episode of vaginal bleeding for one day. Pt reports pain in lower back is worse when she ambulates and shoots up her spine. AOX4, bahamian speaking. Denies any fall or injury. NAD noted.
--- NOTE | 2018-11-25 13:45 | NUR ---
REPORT FROM SELMA LO
--- NOTE | 2018-11-25 13:50 | NUR ---
US AT BEDSIDE
[2018-11-25] MEDS ORDERED: NACL 0.9% 1,000 ML IV ONE (13:54)
[2018-11-25] MEDS ORDERED: NACL 0.9% 1,000 ML IV SCH (13:54)
[2018-11-25] MEDS ORDERED: MORPHINE SULFATE 2 MG/ML SYR IVP ONE (13:55)
--- NOTE | 2018-11-25 14:00 | NUR ---
PT ON STRETCHER IN SUPINE POSITION RESPIRATIONS E/U, NO COMPLAINTS OF CHEST PAIN/SOB, GCS 15. FULL MONITOR ON, BED RAILS UP, BED IN LOW POSITION. NO IDENTIFIED REQUESTS AT THIS TIME.
[2018-11-25 14:16] LABS: BASOPHILS % (AUTO) 0.4 % (0.0-2.0); EOSINOPHILS # (AUTO) 0.1 K/uL (0-0.4); EOSINOPHILS % (AUTO) 0.7 % (0.0-4.0); HEMATOCRIT 42.9 % (36-48); HEMOGLOBIN 14.5 g/dL (12.0-16.0); LYMPHOCYTES # (AUTO) 1.5 K/uL (2.5-16.5); LYMPHOCYTES % (AUTO) 17.7 % (20.5-51.1); MEAN CORPUSCULAR HEMOGLOBIN 31 pg (27-31); MEAN CORPUSCULAR HGB CONC 34 g/dL (33-37); MEAN CORPUSCULAR VOLUME 90.1 fL (80-94); MONOCYTES # (AUTO) 0.4 K/uL (0.8-1.0); MONOCYTES % (AUTO) 4.5 % (1.7-9.3); NEUTROPHILS # (AUTO) 6.4 K/uL (1.8-7.7); NEUTROPHILS % (AUTO) 76.7 % (42.2-75.2); PLATELET COUNT (AUTO) 179 K/uL (140-450); RED BLOOD CELL COUNT(AUTO) 4.76 MIL/uL (4.20-5.40); RED CELL DISTRIBUTION WIDTH 12.9 % (11.6-13.7); WHITE BLOOD COUNT (AUTO) 8.4 K/uL (4.8-10.8)
[2018-11-25 14:22] LABS: APPEARANCE,URINE CLEAR (CLEAR); BILIRUBIN,URINE NEGATIVE (NEGATIVE); BLOOD, URINE TRACE-I (NEGATIVE); COLOR,URINE YELLOW (YELLOW); LEUKOCYTE ESTERASE ,URINE 1+ (NEGATIVE); NITRITE, URINE NEGATIVE (NEGATIVE); PH,URINE 7.5 (5.0-9.0); UGLUCOSE NEGATIVE (NEGATIVE)
[2018-11-25 14:31] LABS: RBC,URINE 0-5 (RARE) /HPF (0-5); WBC,URINE 0-5 (RARE) /HPF (0-5)
[2018-11-25 14:44] LABS: ALBUMIN 3.9 g/dL (3.4-5.0); ANION GAP 8.1 (8-16); CARBON DIOXIDE 32.4 mmol/L (21-32); CREATININE 0.6 mg/dL (0.6-1.3); POTASSIUM 3.5 mmol/L (3.5-5.1); TOTAL BILIRUBIN 0.5 mg/dL (0.0-1.0)
--- NOTE | 2018-11-25 14:53 | NUR ---
PT TO CT AT THIS TIME WITH TECH
--- NOTE | 2018-11-25 16:08 | NUR ---
PT AMBULATED TO RESTROOM AT THIS TIME
--- NOTE | 2018-11-25 16:52 | NUR ---
SON, , LEFT CONTACT INFO NEEDED TO LEAVE FOR CLASS PHONE NUMBER [phone]
[2018-11-25] MEDS ORDERED: LEVOFLOXACIN 500 MG/D5W PREMIX 100 ML IV ONE (17:20)
[2018-11-25] MEDS ORDERED: KETOROLAC 30 MG/ML VIAL IM ONE (17:20)
[2018-11-25 18:52] VITALS: BP 150/72
--- NOTE | 2018-11-25 18:52 | NUR ---
Patient discharged with v/s stable. Written and verbal after care instructions given and explained. Patient alert, oriented and verbalized understanding of instructions. Ambulatory with steady gait. All questions addressed prior to discharge. ID band removed. Patient advised to follow up with PMD. Rx of LEVAQUIN AND REGLAN given. Patient educated on indication of medication including possible reaction and side effects. Opportunity to ask questions provided and answered.
== END 2018-11-25 18:52 | disposition home or self-care (01) ==
LOC: MED 10:49
DX: N39.0 Urinary tract infection, site not specified (principal); K58.9 Irritable bowel syndrome, unspecified; E11.43 Type 2 diabetes mellitus with diabetic autonomic (poly)neuropathy; K31.84 Gastroparesis; E66.9 Obesity, unspecified; J45.909 Unspecified asthma, uncomplicated; I10 Essential (primary) hypertension; Z68.30 Body mass index [BMI] 30.0-30.9, adult; Z85.3 Personal history of malignant neoplasm of breast; Z79.84 Long term (current) use of oral hypoglycemic drugs; Z79.899 Other long term (current) drug therapy
CPT/HCPCS: 36415; 74176; 76705; 80053; 81001; 82150; 83690; 85025; 87086; 96361; 96365; 96372; 96375; 99284; J1885; J1956; J2270; J7030; Q0092

== ENCOUNTER 2019-01-16 08:48 | Outpatient (CLI) | payer MEDICAID ==
[2019-01-16 09:24] LABS: BASOPHILS % (AUTO) 0.6 % (0.0-2.0); EOSINOPHILS # (AUTO) 0.1 K/uL (0-0.4); EOSINOPHILS % (AUTO) 1.4 % (0.0-4.0); HEMATOCRIT 41.4 % (36-48); HEMOGLOBIN 14.4 g/dL (12.0-16.0); LYMPHOCYTES # (AUTO) 1.3 K/uL (2.5-16.5); LYMPHOCYTES % (AUTO) 23.3 % (20.5-51.1); MEAN CORPUSCULAR HEMOGLOBIN 31 pg (27-31); MEAN CORPUSCULAR HGB CONC 35 g/dL (33-37); MEAN CORPUSCULAR VOLUME 88.8 fL (80-94); MONOCYTES # (AUTO) 0.4 K/uL (0.8-1.0); NEUTROPHILS # (AUTO) 3.8 K/uL (1.8-7.7); NEUTROPHILS % (AUTO) 67.7 % (42.2-75.2); PLATELET COUNT (AUTO) 216 K/uL (140-450); RED BLOOD CELL COUNT(AUTO) 4.66 MIL/uL (4.20-5.40); RED CELL DISTRIBUTION WIDTH 12.2 % (11.6-13.7); WHITE BLOOD COUNT (AUTO) 5.6 K/uL (4.8-10.8)
[2019-01-16 10:03] LABS: PROTHROMBIN TIME 9.6 secs (10.8-13.4)
[2019-01-16 10:28] LABS: ANION GAP 16.6 (8-16); CARBON DIOXIDE 26.7 mmol/L (21-32); CREATININE 0.7 mg/dL (0.6-1.3); POTASSIUM 3.3 mmol/L (3.5-5.1)
== END 2019-01-16 18:41 | disposition home or self-care (01) ==
LOC: MLB 08:48
PROVIDERS: ATTEND Internal Medicine Geriatric Medicine
DX: N81.4 Uterovaginal prolapse, unspecified (principal); Z01.818 Encounter for other preprocedural examination; I10 Essential (primary) hypertension; J45.909 Unspecified asthma, uncomplicated; E11.9 Type 2 diabetes mellitus without complications
CPT/HCPCS: 36415; 71046; 80048; 85025; 85610; 85730

== ENCOUNTER 2019-07-03 07:54 | Inpatient (IN) | payer MEDICAID ==
[~2019-07-03] VITALS: Ht 165.1 cm; Wt 73.9 kg
[~2019-07-03 07:54] MED LIST changes: +METO100T22 PO; -METO100T98 PO
[2019-07-03 08:02] VITALS: BP 143/80
--- NOTE | 2019-07-03 08:10 | NUR ---
BIB SON. AAO X4 C/O RT ARM PAIN, SWELLING AND ERYTHEMA SINCE LAST NIGHT. PT REPORTS BURNING PAIN 05/30. + EDEMA TO RT ARM, PT STATES RT ARM IS ALWAYS SWOLLEN SINCE RT MASTECTOMY IN 2010, BUT NEW ONSET OF REDNESS. LEIA EQUAL STRENGTH TO UPPER EXTREMITIES. PT DENIES FEVER, N/V/D. PT PLACED ON FULL WHALE FISHERMAN. ER TO EVALUATE PT.
[2019-07-03] MEDS ORDERED: NACL 0.9% 1,000 ML IV SCH (08:31)
--- NOTE | 2019-07-03 08:32 | NUR ---
DR FRAGA AT BEDSIDE FOR PT EVALUATION
[2019-07-03] MEDS ORDERED: VANCOMYCIN 1,000 MG in DEXTROSE 5% 250 ML IV ONE (08:40)
[2019-07-03] MEDS ORDERED: KETOROLAC 30 MG/ML VIAL IVP ONE (08:40)
[2019-07-03] MEDS ORDERED: VANCOMYCIN 1,000 MG VIAL ONE (09:01)
--- NOTE | 2019-07-03 09:10 | NUR ---
UPON FLUSHING IV TO INFUSE ABX PT'S IV NOTED SWOLLEN WITH ERYTHEMA AND PAIN WITH INFUSING. IV SITE REMOVED. CATETER INTACT. APPIED FOLDED 2X2 GAUZE AND TAPE TO STOP BLEEDING.
--- NOTE | 2019-07-03 09:34 | NUR ---
URINE COLLECTED AND DROPPED OFF TO LAB.
[2019-07-03 09:35] LABS: BASOPHILS # (AUTO) 0.1 K/uL (0.00-0.22); BASOPHILS % (AUTO) 0.6 % (0.0-2.0); HEMATOCRIT 39.3 % (36-48); HEMOGLOBIN 13.5 g/dL (12.0-16.0); LYMPHOCYTES # (AUTO) 0.8 K/uL (2.5-16.5); LYMPHOCYTES % (AUTO) 4.7 % (20.5-51.1); MEAN CORPUSCULAR HEMOGLOBIN 31 pg (27-31); MEAN CORPUSCULAR HGB CONC 35 g/dL (33-37); MEAN CORPUSCULAR VOLUME 89.7 fL (80-94); MONOCYTES # (AUTO) 0.4 K/uL (0.8-1.0); MONOCYTES % (AUTO) 2.6 % (1.7-9.3); NEUTROPHILS # (AUTO) 14.9 K/uL (1.8-7.7); NEUTROPHILS % (AUTO) 92.1 % (42.2-75.2); PLATELET COUNT (AUTO) 187 K/uL (140-450); RED BLOOD CELL COUNT(AUTO) 4.38 MIL/uL (4.20-5.40); RED CELL DISTRIBUTION WIDTH 13.1 % (11.6-13.7)
[2019-07-03 09:51] LABS: PROTHROMBIN TIME 9.6 secs (10.8-13.4)
--- NOTE | 2019-07-03 10:03 | NUR ---
PT ASLEEP. EASILY AROUSABLE BY NAME. AAO X4. EVEN AND UNLABORED BREATHING. NO SIGNS AND SYMPTOMS OF DISTRESS NOTED.
[2019-07-03 10:09] LABS: WHITE BLOOD COUNT (AUTO) 16.1 K/uL (4.8-10.8)
[2019-07-03 10:14] LABS: CARBON DIOXIDE 24.2 mmol/L (21-32); CREATININE 0.8 mg/dL (0.6-1.3); POTASSIUM 3.2 mmol/L (3.5-5.1); TOTAL BILIRUBIN 0.6 mg/dL (0.0-1.0)
[2019-07-03 10:15] LABS: ALBUMIN 3.9 g/dL (3.4-5.0)
[2019-07-03 10:25] LABS: APPEARANCE,URINE CLEAR (CLEAR); BILIRUBIN,URINE NEGATIVE (NEGATIVE); BLOOD, URINE 1+ (NEGATIVE); COLOR,URINE YELLOW (YELLOW); LEUKOCYTE ESTERASE ,URINE NEGATIVE (NEGATIVE); NITRITE, URINE NEGATIVE (NEGATIVE); UGLUCOSE TRACE (NEGATIVE)
[2019-07-03] MEDS ORDERED: NACL 0.9% 1,500 ML IV ONE (10:30)
[2019-07-03 10:36] LABS: RBC,URINE 0-5 /HPF (0-5); WBC,URINE 0-5 /HPF (0-5)
[2019-07-03] MEDS: NACL 0.9% 1,000 ML IV SCH (10:51)
[2019-07-03] MEDS ORDERED: DEXTROSE 50% 50 ML SYR IVP PRN (10:55)
[2019-07-03] MEDS ORDERED: ACETAMINOPHEN 325 MG TAB PO PRN (10:55)
[2019-07-03] MEDS ORDERED: KETOROLAC 30 MG/ML VIAL IVP PRN (10:55)
[2019-07-03] MEDS ORDERED: ONDANSETRON 4 MG/2 ML VIAL IM/IVP PRN (10:55)
[2019-07-03] MEDS ORDERED: ZOLPIDEM 5 MG TAB PO PRN (10:55)
[2019-07-03] MEDS ORDERED: HYDROcodone/APAP 5/325 MG 1 TAB TAB PO PRN (10:55)
[2019-07-03] MEDS ORDERED: DOCUSATE SODIUM 100 MG GELCAP PO PRN (10:55)
--- NOTE | 2019-07-03 11:00 | NUR ---
PT AMBULATED TO THE BATHROOM WITH STEADY GAIT. ACCOMPANIED BY SON
--- NOTE | 2019-07-03 11:05 | NUR ---
PT AMBULATED BACK TO BED 9 WITH STEADY GAIT. ACCOMPANIED BY SON.
--- NOTE | 2019-07-03 11:12 | NUR ---
PT RECEIVED FROM FILIBETRO FALL RN. PT AAOX4. 22G IV TO R HAND RUNNING VANCO AND 1500ML BOLUS OF NS. PT SON AT BEDSIDE. NO SIGNS OF ACUTE DISTRESS AT THIS TIME. PT VITALS OBTAINED AND TRENDING WITH ED VITALS. WILL CONTINUE TO ASSESS PATIENT FOR CHANGES IN CONDITION AND BEING TO IMPLEMENT ORDERS.
--- NOTE | 2019-07-03 11:12 | NUR ---
Patient will be admitted to care of DR JOYNER. Admited to SEPSIS, CELLULITIS WITH TACHYCARDIA. Will go to room 121 B. Belongings list completed. Report to WALLY VIEYRA.
[2019-07-03] MEDS: BLOOD GLUCOSE MONITORING 1 DEV DEV FS SCH ×3 (11:30→21:19)
[2019-07-03 12:03] LABS: BARBITURATE, URINE NEGATIVE ng/ml (NEG <=200); BENZODIAZEPINE, URINE NEGATIVE ng/mL (NEG <=200); CANNABINOID, URINE NEGATIVE ng/mL (NEG <=50); COCAINE, URINE NEGATIVE ng/mL (NEG <=300); OPIATE, URINE NEGATIVE ng/mL (NEG <=2000); PHENCYCLIDINE SCREEN,URINE NEGATIVE ng/mL (NEG <=25)
[2019-07-03 12:04] LABS: MAGNESIUM 3.6 mg/dL (1.8-2.4); PHOSPHORUS 1.3 mg/dL (2.5-4.9)
[2019-07-03] MEDS ORDERED: LETR2.5T PO (12:34)
[2019-07-03] MEDS ORDERED: ECOTRIN 81 MG TABEC PO SCH (13:00)
[2019-07-03] MEDS ORDERED: LORazepam 0.5 MG TAB PO SCH (13:00)
[2019-07-03] MEDS: LETROZOLE 2.5MG TAB PO SCH (13:00)
[2019-07-03] MEDS ORDERED: METOPROLOL 50 MG TAB PO SCH (13:00)
[2019-07-03] MEDS ORDERED: POTASSIUM CHLORIDE 10 MEQ TABER PO SCH (13:00)
[2019-07-03] MEDS ORDERED: amLODIPine 5 MG TAB PO SCH (13:00)
[2019-07-03] MEDS ORDERED: ENALAPRIL 10 MG TAB PO SCH (13:00)
--- NOTE | 2019-07-03 13:00 | NUR ---
PT IN BED. NO SIGNS OF ACUTE DISTRESS. BREATHING EVEN AND UNLABORED. WILL CONTINUE TO ASSESS FOR CHANGES IN CONDITION.
[2019-07-03] MEDS: INSULIN LISPRO SLIDING SCALE 100 UNITS/ML VIAL SUBQ PRN ×2 (14:16→21:14)
--- NOTE | 2019-07-03 15:15 | NUR ---
PT WHEELED OF UNIT IN WHEEL CHAIR TO RECEIVE AN X-RAY WITH SYEDA FROM RADIOLOGY
--- NOTE | 2019-07-03 15:30 | NUR ---
PT WHEELED BACK VIA WHEEL CHAIR FROM RADIOLOGY. NO SIGNS OF ACUTE DISTRESS.
[2019-07-03 16:00] VITALS: BP 130/64
[2019-07-03] MEDS: GEMFIBROZIL 600 MG TAB PO SCH (16:15)
[2019-07-03] MEDS: IBUPROFEN 600 MG TAB PO SCH (16:15)
[2019-07-03 16:21] LABS: CHOL/HDL RATIO 3.4 (1-4.5); FREE T4 (FREE THYROXINE) 1.13 ng/dL (0.76-1.46); THYROID STIMULATING HORMONE 0.26 uIU/mL (0.34-3.74)
--- NOTE | 2019-07-03 17:00 | NUR ---
PT IN BED. FAMILY LEAVING FOR THE NIGHT. NO SIGNS OF ACUTE DISTRESS AT THIS TIME. WILL CONTINUE TO ASSESS FOR CHANGES IN CONDITION.
[2019-07-03] MEDS ORDERED: CLINDAMYCIN 600 MG in DEXTROSE 5% 50 ML IV SCH (18:00)
--- NOTE | 2019-07-03 18:00 | NUR ---
PT IN BED EATING DINNER. PT STATED SHE LIKED WHAT SHE WAS SERVED. WILL CONTINUE TO MAKE ROUNDS.
--- NOTE | 2019-07-03 19:15 | NUR ---
PT ENDORSED TO TSUART LARRIMAN HELPER RN. PT IN BED WITH FAMILY AT BEDSIDE. NS AT 60ML/HR TO L HAND VIA 22G IV. PT STATED SHE WAS HOT AND AC WAS TURNED ON. NO SIGNS OF ACUTE DISTRESS AT THIS TIME.
--- NOTE | 2019-07-03 19:15 | NUR ---
RECEIVED REPORT FORM JARRELL LO DAYSHIFT NURSE AT BEDSIDE FOR CONTINUITY OF CARE, PT IN STABLE CONDITION.
[2019-07-03 20:00] VITALS: BP 146/76
--- NOTE | 2019-07-03 20:00 | NUR ---
PT IS AOX4 AND IS CZECH SPEAKING. SKIN INTACT EXCEPT FOR THE RIGHT EXTREMITY WHICH IS REDDENED AND SWOLLEN. PT HAS 22G ON LEFT HAND INTACT AND RUNNING N/S AT 60MLS/HR. V/S FOLLOWS T 97.7 P 82 R 18 B/P 146/76 02 94% ON ROOM AIR. PT LUNGS CLEAR AND BOWEL SOUNDS ACTIVE. PT IS ABLE TO AMBULATE WITH A STEADY GAIT. PT HAS NO C/O OF PAIN OR DISTRESS NOTED.
[2019-07-03] MEDS: ENALAPRIL 10 MG TAB PO SCH (20:58)
[2019-07-03] MEDS: METOPROLOL 50 MG TAB PO SCH (20:59)
--- NOTE | 2019-07-03 21:00 | NUR ---
DR. RESTREPO AT BEDSIDE FOR INFECTIOUS DISEASE CONSULT. HE DISCONTINUED THE CURRENT ABT'S AND ORDERED PENICILLIN G IV 2MILLION UNITS Q4HRS. SPOKE WITH CHARGE NURSE, AUTO BODY REPAIR TEACHER AND PHARMACIST TO GET MEDICATION ORDERED VIA [employer]. AUTO BODY REPAIR TEACHER CALLED [facility] TO COME AND RECONSTITUTE MEDICATION. PT MADE AWARE VIA STATEMENT REQUEST CLERK. SHE HAS NO C/O OF PAIN OR DISTRESS. PT EDUCATED AND REMINDED TO KEEP RIGHT ARM ELEVATED ON PILLOWS ABOVE LEVEL OF HEART TO HELP SWELLING GO DOWN.
[2019-07-03] MEDS ORDERED: PENICILLIN V POTASSIUM 250 MG TAB PO SCH (21:55)
[2019-07-03] MEDS ORDERED: PENICILLIN G BENZATHINE L-A 1.2 MU/2 ML SYR IM ONE (22:12)
[2019-07-03] MEDS ORDERED: PENICILLIN V POTASSIUM 250 MG TAB ONE (22:13)
[2019-07-03] MEDS: PENICILLIN G POTASSIUM 2 MU in NACL 0.9% 50 ML IV SCH (23:24)
[2019-07-04] VITALS: BP 137/68
[2019-07-04] MEDS ORDERED: PENICILLIN G BENZATHINE L-A 1.2 MU/2 ML SYR IM SCH
--- NOTE | 2019-07-04 00:05 | NUR ---
PT IN BED NO S/S OF PAIN OR DISTRESS NOTED. IV SITE ON LEFT HAND INTACT AND RUNNING N/S AT 60MLS/HR. IV ABT PENICILLIN G WAS RECONSTITUTED AND IS HUNG AND RUNNING AT 100MLS/HR ORDERED. V/S FOLLOWS T 97.7 P 80 R 18 B/P 137/68 02 95% ON ROOM AIR. PT REQUESTED A SLEEPING PILL AND WAS GIVEN AMBIEN PO/PRN FOR INSOMNIA. PT IN LOW BED WITH SIDE RAILS UP X2 AND CALL DHALIWAL IN REACH.
--- NOTE | 2019-07-04 02:00 | NUR ---
PT IN BED SLEEPING SOUNDLY WITH NO S/S OF PAIN OR DISTRESS NOTED. IV SITE ON LEFT HAND INTACT AND RUNNING N/S AT 60MLS/HR.
[2019-07-04 04:00] VITALS: BP 133/64
--- NOTE | 2019-07-04 04:00 | NUR ---
PT IN BED SLEEPING V/S FOLLOWS T 97.7 B/P 133/64 P 72 R 18 02 96% VON ROOM AIR. PT DENIES PAIN RIGHT ARM ELEVATED.
[2019-07-04] MEDS: NACL 0.9% 1,000 ML IV SCH (04:10)
[2019-07-04] MEDS: PENICILLIN G POTASSIUM 2 MU in NACL 0.9% 50 ML IV SCH ×6 (04:19→23:41)
[2019-07-04] MEDS: GEMFIBROZIL 600 MG TAB PO SCH ×2 (05:56→18:07)
--- NOTE | 2019-07-04 06:00 | NUR ---
PT IN BED ASLEEP BUT AROUSABLE TO NAME AND LIGHT TOUCH. PT AM FINGERSTICK IS 160, PT GIVEN 2 UNITS OF HUMALOG COVERAGE. PT ALSO GIVEN DUE LOPID FOR HLD. NO S/S OF PAIN OR DISTRESS NOTED.
[2019-07-04] MEDS: INSULIN LISPRO SLIDING SCALE 100 UNITS/ML VIAL SUBQ PRN ×3 (06:01→18:12)
--- NOTE | 2019-07-04 07:20 | NUR ---
PT RECIEVED FROM NIGHT RN, STUART. PT IN BED. 22 G IV TO L HAND WITH NS AT 60 ML/HR. BREATHING EVEN AND UNLABORED. AAOXR. NO SIGNS OF ACUTE DISTRESS AT THIS TIME. WILL CONTINUE TO ASSESS FOR CHANGES IN CONDITION.
[2019-07-04] MEDS: BLOOD GLUCOSE MONITORING 1 DEV DEV FS SCH ×4 (07:56→20:32)
[2019-07-04] MEDS: IBUPROFEN 600 MG TAB PO SCH ×3 (07:58→18:07)
[2019-07-04 08:00] VITALS: BP 158/80
--- NOTE | 2019-07-04 08:23 | NUR ---
PATIENT HAS BEEN SCREENED AND CATEGORIZED HIGH NUTRITION RISK. PATIENT WILL BE SEEN WITHIN 1-2 DAYS OF ADMISSION. 07/04/[address]
[2019-07-04 08:48] LABS: ANION GAP 10.8 (8-16); CARBON DIOXIDE 25.8 mmol/L (21-32); CREATININE 0.4 mg/dL (0.6-1.3); POTASSIUM 3.6 mmol/L (3.5-5.1)
[2019-07-04] MEDS ORDERED: ANASTROZOLE 1 MG TAB PO SCH (09:00)
[2019-07-04] MEDS ORDERED: LETROZOLE PO SCH (09:00)
[2019-07-04 09:11] LABS: MAGNESIUM 1.7 mg/dL (1.8-2.4); PHOSPHORUS 2.5 mg/dL (2.5-4.9)
[2019-07-04] MEDS: METOPROLOL 50 MG TAB PO SCH ×2 (09:35→20:18)
[2019-07-04] MEDS: ENALAPRIL 10 MG TAB PO SCH ×2 (09:36→20:18)
[2019-07-04] MEDS: amLODIPine 5 MG TAB PO SCH (09:36)
[2019-07-04] MEDS: LETROZOLE 2.5MG TAB PO SCH ×2 (09:37→13:28)
[2019-07-04] MEDS: ECOTRIN 81 MG TABEC PO SCH (09:37)
[2019-07-04] MEDS: LORazepam 0.5 MG TAB PO SCH (09:37)
--- NOTE | 2019-07-04 09:45 | NUR ---
PT RECEIVED ORDERED MEDICATIONS. PT TOLERATED MEDICATION ADMINISTRATION WELL. PT RECEIVED EDUCATION ABOUT MEDS. WILL CONTINUE TO ASSESS FOR CHANGES IN CONDITION.
--- NOTE | 2019-07-04 11:26 | NUR ---
07/09/19 RD INITIAL ASSESSMENT COMPLETED PLEASE REFER TO NUTRITION ASSESSMENT UNDER CARE ACTIVITY FOR ESTIMATED NUTRITIONAL NEEDS. RD RECOMMENDATIONS: RECOMMEND CONTINUE CCHO DIET. IF PO INTAKE CONTINUES<75%, RECOMMEND ADDING ONS GLUCERNA. 2. RD WILL F/U 3-5 DAYS; MODERATE RISK. HILDA PEDERSON, RD
[2019-07-04 12:00] VITALS: BP 142/69
--- NOTE | 2019-07-04 12:00 | NUR ---
PT IN BED. SON AND GRANDSON AT BEDSIDE. PT AAOX4. NO SIGNS OF ACUTE DISTRESS AT THIS TIME. WILL CONTINUE TO ASSESS FOR CHANGES IN CONDITION.
--- NOTE | 2019-07-04 12:06 | NUR ---
LAB CALLED TO ASK WHY CBC IS STILL PENDING. LAB STATED WILL INVESTIGATE.
[2019-07-04 12:19] LABS: BASOPHILS % (AUTO) 0.3 % (0.0-2.0); EOSINOPHILS # (AUTO) 0.1 K/uL (0-0.4); EOSINOPHILS % (AUTO) 1.2 % (0.0-4.0); LYMPHOCYTES # (AUTO) 1.1 K/uL (2.5-16.5); LYMPHOCYTES % (AUTO) 18.6 % (20.5-51.1); MEAN CORPUSCULAR HEMOGLOBIN 31 pg (27-31); MEAN CORPUSCULAR HGB CONC 34 g/dL (33-37); MEAN CORPUSCULAR VOLUME 91.7 fL (80-94); MONOCYTES # (AUTO) 0.3 K/uL (0.8-1.0); MONOCYTES % (AUTO) 5.4 % (1.7-9.3); NEUTROPHILS # (AUTO) 4.2 K/uL (1.8-7.7); NEUTROPHILS % (AUTO) 74.5 % (42.2-75.2); PLATELET COUNT (AUTO) 173 K/uL (140-450); RED BLOOD CELL COUNT(AUTO) 3.82 MIL/uL (4.20-5.40); RED CELL DISTRIBUTION WIDTH 13.3 % (11.6-13.7); WHITE BLOOD COUNT (AUTO) 5.7 K/uL (4.8-10.8)
--- NOTE | 2019-07-04 14:00 | NUR ---
FAMILY AT BEDSIDE LEFT. PT IN BED. AAOX4. IV RUNNING NS AT 60 ML HR. AAOX4. NO SIGNS OF ACUTE DISTRESS AT THIS TIME. WILL CONTINUE TO ASSESS FOR CHANGES IN CONDITION.
[2019-07-04 16:00] VITALS: BP 144/73
--- NOTE | 2019-07-04 19:25 | NUR ---
RECEIVED ENDORSEMENT FROM JARRELL LO DAYSHIFT NURSE AT BEDSIDE FOR CONTINUITY OF CARE, PT IN STABLE CONDITION.
--- NOTE | 2019-07-04 19:25 | NUR ---
PT ENDORSED TO NIGHT NURSE. PT IN BED. AAOX4. NO SIGNS OF ACUTE DISTRESS.
--- NOTE | 2019-07-04 19:42 | NUR ---
PT IN LOW BED WITH SIDE RAILS UP X2 WATCHING TV IN HER ROOM. NO S/S OF PAIN OR DISTRESS NOTED. RIGHT ARM IS ELEVATED ABOVE HEART LEVEL. RIGHT ARM REMAINS EDEMAS BUT IS NOT RED. IV SITE ON LEFT HAND INTACT AND ASYMPTOMATIC AND RUNNING N/S AT 60MLS/HR. V/S FOLLOWS T 97.1 P 72 R 18 B/P 150/71 02 97% ON ROOM AIR. CALL DHALIWAL IN REACH.
[2019-07-04 20:00] VITALS: BP 150/71
[2019-07-04] MEDS: metFORMIN 500 MG TAB PO SCH (20:17)
--- NOTE | 2019-07-04 20:30 | NUR ---
PT IN BED WITH R ARM ELEVATED. PT GIVEN DUE MEDICATIONS OF METFORMIN, LOPRESSOR, VASOTEC, HEPARIN AND IV ABT PENICILLIN G. MEDICATION EDUCATION PROVIDED IN FRISIAN. PT VERBALIZED UNDERSTANDING FINGERSTICK IS 150 NO HUMALOG COVERAGE NEEDED. SNACK PROVIDED AND ALL OTHER REQUESTED NEEDS ATTENDED BY STAFF. BED LOW SIDE RAILS UP X2 AND CALL DHALIWAL IN REACH.
--- NOTE | 2019-07-04 21:19 | NUR ---
REPORT GIVEN TO JARED LO DUE TO CHANGE OF ASSIGNMENTS, PT IN STABLE CONDITION.
--- NOTE | 2019-07-04 21:20 | NUR ---
RECEIVED PT FROM STUART RN PT NIGEL AAOX4 AMBULATORY ,RT UPPER ARM CELLULITIS IV ON LEFT OHAND INFUSING WELL , ON TELEMETRY SR INITIAL ASSESSMENT DONE
[2019-07-05] VITALS: BP 119/60
--- NOTE | 2019-07-05 | NUR ---
PTRESTING ON BED DENIES ANY PAIN RT ARM WITHCELLULITIS ON PILLOW ELEVATION NOT DISTRESS NOTED
[2019-07-05] MEDS: NACL 0.9% 1,000 ML IV SCH ×2 (00:24→15:00)
--- NOTE | 2019-07-05 04:00 | NUR ---
SPONGE BATH GIVEN LINEN CHANGED DENIES ANY PAIN RT UPER ARM ON PILLOW ELEVATION
[2019-07-05] MEDS: PENICILLIN G POTASSIUM 2 MU in NACL 0.9% 50 ML IV SCH ×5 (04:13→20:06)
[2019-07-05 06:21] LABS: BASOPHILS % (AUTO) 0.5 % (0.0-2.0); EOSINOPHILS # (AUTO) 0.1 K/uL (0-0.4); EOSINOPHILS % (AUTO) 2.7 % (0.0-4.0); HEMATOCRIT 35.5 % (36-48); HEMOGLOBIN 12.1 g/dL (12.0-16.0); LYMPHOCYTES # (AUTO) 1.3 K/uL (2.5-16.5); LYMPHOCYTES % (AUTO) 39.2 % (20.5-51.1); MEAN CORPUSCULAR HEMOGLOBIN 31 pg (27-31); MEAN CORPUSCULAR HGB CONC 34 g/dL (33-37); MEAN CORPUSCULAR VOLUME 90.6 fL (80-94); MONOCYTES # (AUTO) 0.2 K/uL (0.8-1.0); MONOCYTES % (AUTO) 7.4 % (1.7-9.3); NEUTROPHILS # (AUTO) 1.7 K/uL (1.8-7.7); NEUTROPHILS % (AUTO) 50.2 % (42.2-75.2); PLATELET COUNT (AUTO) 195 K/uL (140-450); RED BLOOD CELL COUNT(AUTO) 3.92 MIL/uL (4.20-5.40); RED CELL DISTRIBUTION WIDTH 12.9 % (11.6-13.7); WHITE BLOOD COUNT (AUTO) 3.4 K/uL (4.8-10.8)
--- NOTE | 2019-07-05 06:30 | NUR ---
BLOOD SUGAR TEST 188 COVERAGE WITH 2 UNITS HUMALOG FOLLOW PROTOCOL
[2019-07-05] MEDS: BLOOD GLUCOSE MONITORING 1 DEV DEV FS SCH ×4 (06:41→20:24)
[2019-07-05] MEDS: INSULIN LISPRO SLIDING SCALE 100 UNITS/ML VIAL SUBQ PRN ×3 (06:42→20:28)
[2019-07-05] MEDS: GEMFIBROZIL 600 MG TAB PO SCH ×2 (06:44→16:40)
--- NOTE | 2019-07-05 07:20 | NUR ---
PT RECEIVED FROM NIGHT WALLY COLEMAN. PT IN BED AND STATED SHE HAD JUST GIVEN HERSELF A SPONGE BATH. 22G IV TO L HAND WITH NS AT 60 ML/HR. PT AAOX4. NO SIGNS OF ACUTE DISTRESS. WILL CONTINUE TO ASSESS FOR CHANGES IN CONDITION.
[2019-07-05 07:41] LABS: ANION GAP 13.5 (8-16); CARBON DIOXIDE 26.5 mmol/L (21-32); CREATININE 0.5 mg/dL (0.6-1.3)
[2019-07-05 07:50] LABS: MAGNESIUM 1.7 mg/dL (1.8-2.4); PHOSPHORUS 3.3 mg/dL (2.5-4.9)
[2019-07-05] MEDS: IBUPROFEN 600 MG TAB PO SCH ×3 (08:34→16:41)
[2019-07-05] MEDS: METOPROLOL 50 MG TAB PO SCH ×2 (08:35→20:25)
[2019-07-05] MEDS: metFORMIN 500 MG TAB PO SCH ×2 (08:35→20:25)
[2019-07-05] MEDS: ECOTRIN 81 MG TABEC PO SCH (08:35)
[2019-07-05] MEDS: LORazepam 0.5 MG TAB PO SCH (08:36)
[2019-07-05] MEDS: amLODIPine 5 MG TAB PO SCH (08:36)
[2019-07-05] MEDS: ENALAPRIL 10 MG TAB PO SCH ×2 (08:36→20:25)
[2019-07-05] MEDS: LETROZOLE 2.5MG TAB PO SCH (08:37)
--- NOTE | 2019-07-05 08:45 | NUR ---
PT RECEIVED ORDERED MORNING MEDICATIONS. PT TOLERATED MEDICATION ADMINISTRATION. BREATHING EVEN AND UNLABORED ON ROOM AIR. WILL CONTINUE TO ASSESS.
--- NOTE | 2019-07-05 11:00 | NUR ---
PT IN BED. STATED SHE WAS COLD. AC TURNED DOWN. PT OFFERED A WARM BLANKET BUT SHE REFUSED. WILL CONTINUE TO ASSESS. NO SIGNS OF ACUTE DISTRESS AT THIS TIME .
--- NOTE | 2019-07-05 13:00 | NUR ---
PT IN BED. FAMILY AT BEDSIDE. PT STATED SHE FEELS IF SHE IS GETTING A SORE THROAT. STATED IT STARTED IN THE MORNING AND FEELS SCRATCHING FEELING WITH EATING AND DRINKING. PT HAS DRY COUGH BUT STATED SHE FEELS DRAINAGE IN NOSE AND THROAT.
--- NOTE | 2019-07-05 14:00 | NUR ---
DR. MADSEN NOTIFIED OF PT SORE THROAT. MD WILL ORDER THROAT LOZENGES.
[2019-07-05 16:00] VITALS: BP 145/71
[2019-07-05] MEDS ORDERED: BENZOCAINE/MENTHOL 1 LOZ MM PRN (16:15)
--- NOTE | 2019-07-05 16:40 | NUR ---
PT RECEIVED ORDERED MEDICATIONS IBUPROFEN AND LOPID. PT IN BED. AAOX4. NO SIGNS OF ACUTE DISTRESS AT THIS TIME. WILL CONTINUE TO ASSESS FOR CHANGES IN CONDITION.
--- NOTE | 2019-07-05 18:30 | NUR ---
PT SLEEPING IN BED. BREATHING EVEN AND UNLABORED ON ROOM AIR. WILL CONTINUE TO ASSESS.
--- NOTE | 2019-07-05 19:05 | NUR ---
PT ENDORSED TO NIGHT RNANGIE PT IN BED AAOX4, FAMILY AT BEDSIDE. 22G IV TO L HAND, RUNNING NS AT 30 ML/HR. NO SIGNS OF ACUTE DISTRESS. BREATHING IS EVEN AND UNLABORED ON ROOM AIR. PT EATING FOOD FROM HOME, GRILLED CHICKEN. PT EDUCATED THAT HOME FOOD IS NOT RECOMMENDED BECAUSE HOSPITAL DIET IS TAILORED TO PT CONDITION. PT VERBALIZED UNDERSTANDING.
[2019-07-05 20:28] VITALS: BP 149/71
--- NOTE | 2019-07-05 20:37 | NUR ---
PT. TOLERATED ALL P.O. MEDICATIONS. NO COMPLAINTS DONE. ABLE TO VERBALIZE NEEDS WELL IN CHINESE AND JAPANESE. CALL LIGHT WITH IN REACH.
[2019-07-06] MEDS: PENICILLIN G POTASSIUM 2 MU in NACL 0.9% 50 ML IV SCH ×4 (00:44→12:32)
--- NOTE | 2019-07-06 00:48 | NUR ---
AWAKE AT THIS TIME AND WATCHING TV . " [place] TODAY IN [place]." NO SOB. NO COMPLAINT OF PAIN. GOOD AFFECT. CALL LIGHT WITH IN REACH. A/O X 4.
[2019-07-06 00:50] VITALS: BP 151/67
--- NOTE | 2019-07-06 03:02 | NUR ---
SLEEPING. NO RESTLESSNESS.
--- NOTE | 2019-07-06 04:39 | NUR ---
SLEEPING . NO RESTLESSNESS.
[2019-07-06] MEDS: BLOOD GLUCOSE MONITORING 1 DEV DEV FS SCH ×2 (05:14→11:56)
[2019-07-06] MEDS: GEMFIBROZIL 600 MG TAB PO SCH (05:43)
--- NOTE | 2019-07-06 06:26 | NUR ---
MANNEQUIN SANDER AND FINISHER IN HERE TO COLLECT BLOOD SAMPLES. BLOOD SUGAR PER FINGERSTICK WNL. NO INSULIN COVERAGE. WILL ENDORSE TO AM RN FOR CONTINUITY OF CARE. PT. NO COMPLAINTS DONE THIS SHIFT. ABLE TO VERBALIZE NEEDS WELL WITH CARE GIVERS AND ME. RIGHT ARM STILL WITH CELLULITIS. ON IV ABT THERAPY. NO REPORTED ADVERSE REACTIONS TO IV ABT ADMINISTERED.
[2019-07-06 06:28] LABS: ANION GAP 13.3 (8-16); CARBON DIOXIDE 26.7 mmol/L (21-32); CREATININE 0.6 mg/dL (0.6-1.3)
[2019-07-06 06:34] LABS: BASOPHILS % (AUTO) 0.5 % (0.0-2.0); EOSINOPHILS # (AUTO) 0.1 K/uL (0-0.4); EOSINOPHILS % (AUTO) 2.2 % (0.0-4.0); HEMATOCRIT 36.1 % (36-48); HEMOGLOBIN 12.3 g/dL (12.0-16.0); LYMPHOCYTES # (AUTO) 1.4 K/uL (2.5-16.5); LYMPHOCYTES % (AUTO) 37.1 % (20.5-51.1); MEAN CORPUSCULAR HEMOGLOBIN 31 pg (27-31); MEAN CORPUSCULAR HGB CONC 34 g/dL (33-37); MEAN CORPUSCULAR VOLUME 90.4 fL (80-94); MONOCYTES # (AUTO) 0.3 K/uL (0.8-1.0); MONOCYTES % (AUTO) 6.5 % (1.7-9.3); NEUTROPHILS # (AUTO) 2.1 K/uL (1.8-7.7); NEUTROPHILS % (AUTO) 53.7 % (42.2-75.2); PLATELET COUNT (AUTO) 212 K/uL (140-450); RED BLOOD CELL COUNT(AUTO) 3.99 MIL/uL (4.20-5.40); RED CELL DISTRIBUTION WIDTH 12.9 % (11.6-13.7); WHITE BLOOD COUNT (AUTO) 3.9 K/uL (4.8-10.8)
[2019-07-06 06:37] LABS: MAGNESIUM 1.5 mg/dL (1.8-2.4); PHOSPHORUS 4.3 mg/dL (2.5-4.9)
--- NOTE | 2019-07-06 07:25 | NUR ---
RECEIVED BEDSIDE REPORT FROM THE PRODUCT SALES ENGINEER NURSE, PT IS AWAKE AND ALERT, IN NO ACUTE DISTRESS. R ARM IS NOTED TO BE SWOLLEN, HOWEVER, PT NOT C/O ANY R ARM PAIN. PT IS ON ROOM AIR, SKIN IS INTACT. IV SITE IS NOTED IN THE L HAND 22 G, INFUSING NS 30 ML/HR. PT IS AMBULATORY AND ABLE TO MAKE NEEDS KNOWN. CALL LIGHT IS WITHIN REACH. WILL CONTINUE TO MONITOR.
[2019-07-06 08:00] VITALS: BP 149/86
--- NOTE | 2019-07-06 08:22 | NUR ---
DR LINARES NOTIFIED OF PT'S MAGNESIUM LEVEL 1.5
[2019-07-06] MEDS: ENALAPRIL 10 MG TAB PO SCH (08:39)
[2019-07-06] MEDS: ECOTRIN 81 MG TABEC PO SCH (08:39)
[2019-07-06] MEDS ORDERED: MAG SULF 2000 MG/WATER PREMIX 100 ML IV ONE (08:40)
[2019-07-06] MEDS: METOPROLOL 50 MG TAB PO SCH (08:40)
[2019-07-06] MEDS: amLODIPine 5 MG TAB PO SCH (08:40)
[2019-07-06] MEDS: LORazepam 0.5 MG TAB PO SCH (08:40)
[2019-07-06] MEDS: metFORMIN 500 MG TAB PO SCH (08:40)
[2019-07-06] MEDS: IBUPROFEN 600 MG TAB PO SCH ×2 (08:41→12:32)
[2019-07-06] MEDS: LETROZOLE 2.5MG TAB PO SCH (08:41)
--- NOTE | 2019-07-06 08:54 | NUR ---
AM MEDS ADMINISTERED, PT TOLERATED WELL.
[2019-07-06] MEDS ORDERED: MAGNESIUM OXIDE 400 MG TAB PO SCH (09:00)
[2019-07-06] MEDS: MAGNESIUM SULFATE 1GM in DEXTROSE 5% 100 ML PREMIX IV SCH ×3 (09:38→11:00)
--- NOTE | 2019-07-06 10:02 | NUR ---
PT SITTING UP IN BED COMFORTABLY, NO S/S OF ACUTE DISTRESS. FIRST BAG OF MAG RIDER INFUSING.
[2019-07-06] MEDS: INSULIN LISPRO SLIDING SCALE 100 UNITS/ML VIAL SUBQ PRN (11:56)
[2019-07-06] MEDS ORDERED: PENI500T19 PO (13:28)
[2019-07-06] MEDS ORDERED: LACT10CA1 PO (13:28)
[2019-07-06] MEDS ORDERED: ORE25 PO (13:53)
--- NOTE | 2019-07-06 16:40 | NUR ---
PT HAS DC'D. DC INSTRUCTIONS WERE EXPLAINED TO THE PT AND HER SON AT BEDSIDE; THEY VERBALIZED UNDERSTANDING OF DC INSTRUCTIONS AND TO FOLLOW UP WITH HER PCP. IV SITE AND WRIST BANDS WERE REMOVED. PT LEFT WITH ALL HER BELONGINGS IN STABLE CONDITION.
[2019-07-07] MEDS ORDERED: HYDROCHLOROTHIAZIDE 25 MG TAB PO SCH (09:00)
== END 2019-07-06 16:50 | disposition home or self-care (01) | DRG 720 ==
LOC: MED 07:54 → MTU 10:51
PROVIDERS: ADMIT General Practice; ATTEND General Practice
DX: A41.9 Sepsis, unspecified organism (principal); E11.51 Type 2 diabetes mellitus with diabetic peripheral angiopathy without gangrene; E11.65 Type 2 diabetes mellitus with hyperglycemia; E87.1 Hypo-osmolality and hyponatremia; L03.113 Cellulitis of right upper limb; E87.6 Hypokalemia; I89.0 Lymphedema, not elsewhere classified; E78.5 Hyperlipidemia, unspecified; I10 Essential (primary) hypertension; Z85.3 Personal history of malignant neoplasm of breast; Z86.718 Personal history of other venous thrombosis and embolism; Z90.11 Acquired absence of right breast and nipple; Z90.49 Acquired absence of other specified parts of digestive tract; F41.9 Anxiety disorder, unspecified; J45.909 Unspecified asthma, uncomplicated; E83.42 Hypomagnesemia
CPT/HCPCS: 36415; 71045; 72080; 80048; 80053; 80305; 81001; 82150; 82948; 83036; 83605; 83690; 83735; 83880; 84100; 84134; 84439; 84443; 84484; 85025; 85610; 85730; 87040; 87081; 87086; 93005; 93971; 96361; 96374; 99291; J0561; J1644; J1815; J1885; J2540; J3370; J3490; J7030; J7060; Q0092

== ENCOUNTER 2020-10-06 20:04 | Emergency (ER) | payer MEDICAID ==
[~2020-10-06] VITALS: Ht 160 cm; Wt 68.0 kg
[~2020-10-06 20:04] MED LIST changes: -ANAS1TAB56 PO; -ATOR20TA40 PO; -CEPH250C16 PO; -CLIN300C2 PO; +LACT10CA1 PO; -LACT1CAP63 PO; +LETR2.5T PO; -MELO7.5T11 PO; -METH250T32 PO; +ORE25 PO; +PENI500T19 PO; -XAR10 PO
[2020-10-06 20:30] VITALS: BP 189/97
--- NOTE | 2020-10-06 20:30 | NUR ---
TO TENT # 02 AMBULATORY
--- NOTE | 2020-10-06 20:31 | NUR ---
SEEN AND EXAMINED BY RENAE WITH ORDERS AND CARRIED OUT.
--- NOTE | 2020-10-06 20:40 | NUR ---
SWAB DONE AND SENT TO LAB
--- NOTE | 2020-10-06 21:30 | NUR ---
RESULT BACK AND NOTED BY ERMD AND FOR D/C
[2020-10-06 21:45] VITALS: BP 168/90
--- NOTE | 2020-10-06 21:45 | NUR ---
Patient discharged with v/s stable. Written and verbal after care instructions given and explained. Patient alert, oriented and verbalized understanding of instructions. Ambulatory with steady gait. All questions addressed prior to discharge. ID band removed. Patient advised to follow up with PMD. Rx of COMPAZINE, PREDNISONE given. Patient educated on indication of medication including possible reaction and side effects. Opportunity to ask questions provided and answered.
== END 2020-10-06 21:45 | disposition home or self-care (01) ==
LOC: MED 20:04
DX: R50.9 Fever, unspecified (principal); Z20.828 Contact with and (suspected) exposure to other viral communicable diseases; I10 Essential (primary) hypertension; E11.9 Type 2 diabetes mellitus without complications; E78.5 Hyperlipidemia, unspecified
CPT/HCPCS: 93005; 99284

== ENCOUNTER 2023-04-17 16:52 | Emergency (ER) | payer MEDICAID, OTHER ==
[~2023-04-17] VITALS: Ht 152.4 cm; Wt 70.3 kg
[~2023-04-17 16:52] MED LIST changes: +HYDR-4004 PO; +METF-346 PO; -METF500T PO; -ORE25 PO
[2023-04-17 17:14] VITALS: BP 175/77; PULSE 71; RESP 15; TEMP 97.9; O2SAT 98
--- NOTE | 2023-04-17 17:27 | NUR ---
sofiya landry assessing pt in CROW
[2023-04-17] MEDS ORDERED: MORPHINE SULFATE 4 MG/ML SYR IVP ONE (17:30)
[2023-04-17] MEDS ORDERED: NACL 0.9% 1,000 ML IV ONE (17:30)
[2023-04-17] MEDS ORDERED: ONDANSETRON 4 MG/2 ML VIAL IVP ONE (17:30)
[2023-04-17 18:14] LABS: BASOPHILS % (AUTO) 0.5 % (0.0-2.0); EOSINOPHILS # (AUTO) 0.1 K/uL (0-0.4); EOSINOPHILS % (AUTO) 1.2 % (0.0-4.0); HEMATOCRIT 41.2 % (36-48); HEMOGLOBIN 14.3 g/dL (12.0-16.0); LYMPHOCYTES # (AUTO) 1.7 K/uL (2.5-16.5); LYMPHOCYTES % (AUTO) 25.3 % (20.5-51.1); MEAN CORPUSCULAR HEMOGLOBIN 32 pg (27-31); MEAN CORPUSCULAR HGB CONC 35 g/dL (33-37); MEAN CORPUSCULAR VOLUME 92.4 fL (80-94); MONOCYTES # (AUTO) 0.3 K/uL (0.8-1.0); MONOCYTES % (AUTO) 4.9 % (1.7-9.3); NEUTROPHILS # (AUTO) 4.5 K/uL (1.8-7.7); NEUTROPHILS % (AUTO) 68.1 % (42.2-75.2); PLATELET COUNT (AUTO) 100 K/uL (140-450); RED BLOOD CELL COUNT(AUTO) 4.46 MIL/uL (4.20-5.40); RED CELL DISTRIBUTION WIDTH 12.4 % (11.6-13.7); WHITE BLOOD COUNT (AUTO) 6.6 K/uL (4.8-10.8)
[2023-04-17 18:18] LABS: ALBUMIN 3.9 g/dL (3.4-5.0); ANION GAP 14.1 (8-16); CARBON DIOXIDE 28.5 mmol/L (21-32); CREATININE 0.5 mg/dL (0.6-1.3); POTASSIUM 3.6 mmol/L (3.5-5.1); TOTAL BILIRUBIN 0.4 mg/dL (0.0-1.0)
--- NOTE | 2023-04-17 18:24 | NUR ---
pt medicated per md orders. NKA verbalized, no adverse reactions
[2023-04-17 18:30] VITALS: O2SAT 100
--- NOTE | 2023-04-17 18:30 | NUR ---
PATIENT PRESENTS TO ED WITH WITH BODY ACHES AND GENERALIZED WEAKNESS. PT STATES THE PAIN HAS BEEN HAPPENING FOR TWO WEEKS IN IN HER LOWER LEGS AND BACK. PT HAS BEEN HAVING SYMPTOMS OF DIARREA; PT DENIES NAUSEA AND VOMITING SKIN IS PINK/WARM/DRY; AAOX4 WITH EVEN AND STEADY GAIT; LUNGS CLEAR BL; HR EVEN AND REGULAR; PT DENIES ANY FEVER, CP, SOB, OR COUGH AT THIS TIME; PATIENT STATES PAIN OF 8/10 AT THIS TIME; VSS; PATIENT POSITIONED FOR COMFORT; HOB ELEVATED; BEDRAILS UP X2; BED DOWN. ER MD MADE AWARE OF PT STATUS. PT HAS HISTORY OF CANCER LYMPHNODE REMOVAL IN RIGHT ARM. PT HAS HISTORY OF DM AND HTN
--- NOTE | 2023-04-17 18:45 | NUR ---
PT HAS HAD ALL LABS DONE. PT HAS BEEN PLACED ON MONITOR. FAMILY HAS BEEN MADE AWARE OF STATUS. PT HAS FLUIDS INFUSING. WILL CONTINUE TO MONITOR.
--- NOTE | 2023-04-17 19:38 | NUR ---
Pt report given to WALLY Shanks. Transfer of care at 1930.
--- NOTE | 2023-04-17 19:42 | NUR ---
UA was collected and sent to the lab. Pt taken of unit for CT-Scan.
[2023-04-17 19:52] LABS: APPEARANCE,URINE CLEAR (CLEAR); BILIRUBIN,URINE NEGATIVE (NEGATIVE); BLOOD, URINE TRACE-I (NEGATIVE); COLOR,URINE YELLOW (YELLOW); LEUKOCYTE ESTERASE ,URINE TRACE (NEGATIVE); NITRITE, URINE NEGATIVE (NEGATIVE); UGLUCOSE NEGATIVE (NEGATIVE)
--- NOTE | 2023-04-17 19:52 | NUR ---
Pt brought back to the unit by CT-Scan.
[2023-04-17 20:03] LABS: RBC,URINE 0-5 /HPF (0-5)
--- NOTE | 2023-04-17 21:54 | NUR ---
AT INFORMING THE PT THAT SHE HAS A POSSIBLE INFECTION IN HER COLON AND HE WOULD BE GIVING THE PT A RX FOR ANTIBIOTICS, PAIN, AND DIARRHEA. HE INFORMED HER THAT IT WAS LIKELY SOMETHING SHE ATE.
[2023-04-17] MEDS ORDERED: BISM262T5 PO (22:01)
[2023-04-17] MEDS ORDERED: ACET-10509 PO (22:01)
[2023-04-17] MEDS ORDERED: CIPR500T4 PO (22:01)
[2023-04-17] MEDS ORDERED: METR-435 PO (22:01)
[2023-04-17 22:36] VITALS: BP 139/56; PULSE 61; RESP 18; TEMP 97.7; O2SAT 99
--- NOTE | 2023-04-17 22:41 | NUR ---
Patient discharged with v/s stable. Written and verbal after care instructions given and explained. Patient alert, oriented and verbalized understanding of instructions. Ambulatory with steady gait. All questions addressed prior to discharge. ID band removed. Patient advised to follow up with PMD. Rx of PEPTO-BISMOL, CIPRO, METRONIDAZOLE, AND TYLENOL given. Patient educated on indication of medication including possible reaction and side effects. Opportunity to ask questions provided and answered. Pt instructed to return if condition worsens or to call 911 for an emergency.
== END 2023-04-17 22:41 | disposition home or self-care (01) ==
LOC: MED 16:52
DX: K52.9 Noninfective gastroenteritis and colitis, unspecified (principal); I11.0 Hypertensive heart disease with heart failure; E11.9 Type 2 diabetes mellitus without complications; Z85.3 Personal history of malignant neoplasm of breast; Z79.4 Long term (current) use of insulin; Z79.899 Other long term (current) drug therapy; Z90.710 Acquired absence of both cervix and uterus
CPT/HCPCS: 36415; 74176; 80053; 81001; 83690; 85025; 96361; 96374; 96375; 99285; J2270; J2405; J7030

== ENCOUNTER 2023-08-29 16:06 | Emergency (ER) | payer OTHER, MEDICAID ==
[~2023-08-29] VITALS: Ht 160 cm; Wt 74.4 kg
[~2023-08-29 16:06] MED LIST changes: +ACET-10509 PO; +BISM262T5 PO; +CIPR500T4 PO; +METR-435 PO
[2023-08-29 16:34] VITALS: BP 180/76; PULSE 78; RESP 16; TEMP 98.7; O2SAT 98
[2023-08-29 17:12] LABS: BASOPHILS % (AUTO) 0.6 % (0.0-2.0); EOSINOPHILS # (AUTO) 0.1 K/uL (0-0.4); EOSINOPHILS % (AUTO) 1.5 % (0.0-4.0); HEMATOCRIT 38.1 % (36-48); HEMOGLOBIN 13.4 g/dL (12.0-16.0); LYMPHOCYTES # (AUTO) 1.9 K/uL (2.5-16.5); LYMPHOCYTES % (AUTO) 31.2 % (20.5-51.1); MEAN CORPUSCULAR HEMOGLOBIN 32 pg (27-31); MEAN CORPUSCULAR HGB CONC 35 g/dL (33-37); MEAN CORPUSCULAR VOLUME 91.2 fL (80-94); MONOCYTES # (AUTO) 0.3 K/uL (0.8-1.0); MONOCYTES % (AUTO) 5.1 % (1.7-9.3); NEUTROPHILS # (AUTO) 3.8 K/uL (1.8-7.7); NEUTROPHILS % (AUTO) 61.6 % (42.2-75.2); PLATELET COUNT (AUTO) 216 K/uL (140-450); RED BLOOD CELL COUNT(AUTO) 4.18 MIL/uL (4.20-5.40); RED CELL DISTRIBUTION WIDTH 12.1 % (11.6-13.7); WHITE BLOOD COUNT (AUTO) 6.2 K/uL (4.8-10.8)
[2023-08-29 17:26] LABS: INR 0.86 (0.8-1.2); PARTIAL THROMBOPLASTIN TIME 23.2 secs (22-35.6); PROTHROMBIN TIME 9.1 secs (10.8-13.4)
[2023-08-29 17:36] LABS: ALBUMIN 3.5 g/dL (3.4-5.0); ANION GAP 13.2 (8-16); CALCIUM 8.8 mg/dL (8.5-10.1); CARBON DIOXIDE 26.3 mmol/L (21-32); CREATININE 1.1 mg/dL (0.6-1.3); POTASSIUM 3.5 mmol/L (3.5-5.1); TOTAL BILIRUBIN 0.2 mg/dL (0.0-1.0)
[2023-08-29] MEDS ORDERED: NACL 0.9% 1,000 ML IV ONE (17:55)
[2023-08-29] MEDS ORDERED: ALBUTEROL SULFATE/IPRATROPIU 3 ML SOL IH ONE (17:55)
[2023-08-29 18:48] VITALS: O2SAT 100
[2023-08-29 18:51] VITALS: PULSE 73; RESP 20; O2SAT 99
[2023-08-29] MEDS ORDERED: ALBU0.0912 INH (19:30)
[2023-08-29] MEDS ORDERED: PRED10TA5 PO (19:30)
[2023-08-29 20:15] VITALS: BP 156/60; PULSE 73; RESP 20; TEMP 98.7; O2SAT 99
== END 2023-08-29 20:15 | disposition home or self-care (01) ==
LOC: MED 16:06
DX: J45.901 Unspecified asthma with (acute) exacerbation (principal); E11.9 Type 2 diabetes mellitus without complications; I10 Essential (primary) hypertension; Z98.890 Other specified postprocedural states; Z79.899 Other long term (current) drug therapy; Z79.2 Long term (current) use of antibiotics
CPT/HCPCS: 36415; 71045; 71275; 80053; 83880; 84484; 85025; 85379; 85610; 85730; 93005; 94640; 96360; 99285; Q9967

== ENCOUNTER 2023-11-06 12:39 | Emergency (ER) | payer OTHER ==
[~2023-11-06] VITALS: Ht 160 cm; Wt 72.6 kg
[~2023-11-06 12:39] MED LIST changes: +ALBU0.0912 INH; +PRED10TA5 PO
[2023-11-06 13:19] VITALS: BP 133/76; PULSE 70; RESP 16; TEMP 97.5; O2SAT 98
[2023-11-06 14:50] LABS: APPEARANCE,URINE CLEAR (CLEAR); BILIRUBIN,URINE NEGATIVE (NEGATIVE); BLOOD, URINE TRACE-I (NEGATIVE); COLOR,URINE YELLOW (YELLOW); LEUKOCYTE ESTERASE ,URINE TRACE (NEGATIVE); NITRITE, URINE NEGATIVE (NEGATIVE); PROTEIN,URINE NEGATIVE (NEGATIVE); UGLUCOSE 2+ (NEGATIVE); UROBILINOGEN,URINE 0.2 EU/dL (0.2 - 1)
[2023-11-06 14:53] LABS: BACTERIA,URINE 0-2 /HPF (None Seen); RBC,URINE 0-5 /HPF (0-5); SQUAMOUS EPITHELIAL CELL,UR 0-3 (FEW) /LPF (0-3 (FEW)); WBC,URINE 0-5 /HPF (0-5)
[2023-11-06 14:54] LABS: MUCUS,URINE None Seen /LPF (None Seen)
[2023-11-06 16:00] LABS: BASOPHILS % (AUTO) 0.6 % (0.0-2.0); EOSINOPHILS # (AUTO) 0.1 K/uL (0-0.4); EOSINOPHILS % (AUTO) 1.3 % (0.0-4.0); HEMATOCRIT 40.8 % (36-48); HEMOGLOBIN 14.3 g/dL (12.0-16.0); LYMPHOCYTES # (AUTO) 2.3 K/uL (2.5-16.5); LYMPHOCYTES % (AUTO) 27.9 % (20.5-51.1); MEAN CORPUSCULAR HEMOGLOBIN 32 pg (27-31); MEAN CORPUSCULAR HGB CONC 35 g/dL (33-37); MEAN CORPUSCULAR VOLUME 91.5 fL (80-94); MONOCYTES # (AUTO) 0.4 K/uL (0.8-1.0); MONOCYTES % (AUTO) 4.9 % (1.7-9.3); NEUTROPHILS # (AUTO) 5.4 K/uL (1.8-7.7); NEUTROPHILS % (AUTO) 65.3 % (42.2-75.2); PLATELET COUNT (AUTO) 227 K/uL (140-450); RED BLOOD CELL COUNT(AUTO) 4.46 MIL/uL (4.20-5.40); RED CELL DISTRIBUTION WIDTH 12.4 % (11.6-13.7); WHITE BLOOD COUNT (AUTO) 8.3 K/uL (4.8-10.8)
[2023-11-06 16:37] LABS: INR 0.9 (0.8-1.2); PROTHROMBIN TIME 9.4 secs (10.8-13.4)
[2023-11-06 16:41] LABS: ANION GAP 11.8 (8-16); CALCIUM 9.5 mg/dL (8.5-10.1); CARBON DIOXIDE 30.9 mmol/L (21-32); CREATININE 0.7 mg/dL (0.6-1.3); POTASSIUM 3.7 mmol/L (3.5-5.1)
[2023-11-06 16:45] LABS: ALBUMIN 3.5 g/dL (3.4-5.0); BILIRUBIN,DIRECT 0.1 mg/dL (0.0-0.3); TOTAL BILIRUBIN 0.3 mg/dL (0.0-1.0); TOTAL PROTEIN, SERUM 7.1 g/dL (6.4-8.2)
== END 2023-11-06 18:15 | disposition home or self-care (01) ==
LOC: MED 12:39
DX: N93.9 Abnormal uterine and vaginal bleeding, unspecified (principal); Z79.899 Other long term (current) drug therapy
CPT/HCPCS: 36415; 76856; 80048; 80076; 81001; 83690; 85025; 85610; 86886; 86900; 86901; 99284

== ENCOUNTER 2023-11-07 20:12 | Emergency (ER) | payer OTHER ==
[~2023-11-07] VITALS: Ht 167.6 cm; Wt 71.7 kg
[2023-11-07 20:15] VITALS: BP 161/82; PULSE 85; RESP 17; TEMP 97.8; O2SAT 99
[2023-11-07 21:56] LABS: BASOPHILS % (AUTO) 0.8 % (0.0-2.0); EOSINOPHILS # (AUTO) 0.1 K/uL (0-0.4); EOSINOPHILS % (AUTO) 1.8 % (0.0-4.0); HEMATOCRIT 40.6 % (36-48); HEMOGLOBIN 14.6 g/dL (12.0-16.0); LYMPHOCYTES # (AUTO) 2.1 K/uL (2.5-16.5); LYMPHOCYTES % (AUTO) 34.5 % (20.5-51.1); MEAN CORPUSCULAR HEMOGLOBIN 33 pg (27-31); MEAN CORPUSCULAR HGB CONC 36 g/dL (33-37); MEAN CORPUSCULAR VOLUME 91.6 fL (80-94); MONOCYTES # (AUTO) 0.3 K/uL (0.8-1.0); MONOCYTES % (AUTO) 5.3 % (1.7-9.3); NEUTROPHILS # (AUTO) 3.5 K/uL (1.8-7.7); NEUTROPHILS % (AUTO) 57.6 % (42.2-75.2); PLATELET COUNT (AUTO) 217 K/uL (140-450); RED BLOOD CELL COUNT(AUTO) 4.44 MIL/uL (4.20-5.40); RED CELL DISTRIBUTION WIDTH 12.2 % (11.6-13.7)
[2023-11-07 22:12] LABS: ANION GAP 13.6 (8-16); CALCIUM 9.2 mg/dL (8.5-10.1); CARBON DIOXIDE 30.2 mmol/L (21-32); CREATININE 0.7 mg/dL (0.6-1.3); POTASSIUM 3.8 mmol/L (3.5-5.1)
[2023-11-07 22:16] LABS: ALBUMIN 3.3 g/dL (3.4-5.0); BILIRUBIN,DIRECT 0.1 mg/dL (0.0-0.3); TOTAL BILIRUBIN 0.2 mg/dL (0.0-1.0); TOTAL PROTEIN, SERUM 7.8 g/dL (6.4-8.2)
== END 2023-11-08 01:22 | disposition home or self-care (01) ==
LOC: MED 20:12
DX: N93.9 Abnormal uterine and vaginal bleeding, unspecified (principal); E11.9 Type 2 diabetes mellitus without complications; I10 Essential (primary) hypertension; Z79.899 Other long term (current) drug therapy; Z79.4 Long term (current) use of insulin
CPT/HCPCS: 36415; 74177; 80048; 80076; 84484; 85025; 86886; 86900; 86901; 93005; 99285; Q9967

== ENCOUNTER 2024-01-05 10:28 | Emergency (ER) | payer OTHER ==
[~2024-01-05] VITALS: Ht 160 cm; Wt 75.0 kg
[2024-01-05 10:44] VITALS: BP 147/68; PULSE 75; RESP 18; TEMP 97.3; O2SAT 98
[2024-01-05] MEDS ORDERED: AMOX-1230 PO (11:45)
[2024-01-05] MEDS ORDERED: ACET-503 PO (11:45)
[2024-01-05] MEDS: IBUPROFEN 600 MG TAB PO ONE (11:51)
[2024-01-05] MEDS: HYDROcodone/APAP 5/325 MG 1 TAB TAB PO ONE (11:53)
[2024-01-05 12:00] VITALS: BP 132/61; PULSE 66; RESP 18; TEMP 97.3; O2SAT 98
== END 2024-01-05 12:00 | disposition home or self-care (01) ==
LOC: MED 10:28
DX: L03.116 Cellulitis of left lower limb (principal); J45.909 Unspecified asthma, uncomplicated; E11.9 Type 2 diabetes mellitus without complications; I10 Essential (primary) hypertension; I25.10 Atherosclerotic heart disease of native coronary artery without angina pectoris; Z98.890 Other specified postprocedural states; Z79.899 Other long term (current) drug therapy
CPT/HCPCS: 99283

== ENCOUNTER 2024-04-19 15:06 | Emergency (ER) | payer OTHER ==
[~2024-04-19] VITALS: Ht 152.4 cm; Wt 73.2 kg
[~2024-04-19 15:06] MED LIST changes: -ATI.5 PO; -CIPR500T4 PO; +COLC-30 PO; +INSU-656 SUBQ; +LANTUS SC; -METR-435 PO; -PENI500T19 PO; -PRED10TA5 PO; +SULF-59 PO
[2024-04-19 15:30] VITALS: BP 143/61; PULSE 74; RESP 18; TEMP 98.2; O2SAT 96
[2024-04-19] MEDS ORDERED: CEPH-588 PO (16:18)
[2024-04-19] MEDS: KETOROLAC 60 MG/2 ML VIAL IM ONE (16:33)
[2024-04-19 16:40] VITALS: BP 143/61; PULSE 74; RESP 18; TEMP 98.2; O2SAT 96
== END 2024-04-19 16:40 | disposition home or self-care (01) ==
LOC: MED 15:06
DX: L03.113 Cellulitis of right upper limb (principal); J45.909 Unspecified asthma, uncomplicated; E11.9 Type 2 diabetes mellitus without complications; I10 Essential (primary) hypertension; Z98.890 Other specified postprocedural states; Z79.899 Other long term (current) drug therapy; Z79.4 Long term (current) use of insulin
CPT/HCPCS: 96372; 99283; J1885

== ENCOUNTER 2024-07-03 12:15 | Emergency (ER) | payer OTHER ==
[~2024-07-03] VITALS: Ht 152.4 cm; Wt 75.5 kg
[~2024-07-03 12:15] MED LIST changes: -ACET-10509 PO; +ACET500T99 PO; +CEPH-588 PO
[2024-07-03 12:19] VITALS: BP 182/74; PULSE 69; RESP 18; TEMP 97.8; O2SAT 98
[2024-07-03] MEDS ORDERED: IBUP-2213 PO (12:47)
[2024-07-03] MEDS: KETOROLAC 60 MG/2 ML VIAL IM ONE (13:15)
[2024-07-03 14:46] VITALS: BP 147/65; PULSE 64; RESP 16; TEMP 98.1; O2SAT 97
== END 2024-07-03 14:46 | disposition home or self-care (01) ==
LOC: MED 12:15
DX: R51.9 Headache, unspecified (principal); J45.909 Unspecified asthma, uncomplicated; E11.9 Type 2 diabetes mellitus without complications; I10 Essential (primary) hypertension; Z98.890 Other specified postprocedural states; Z79.899 Other long term (current) drug therapy; Z79.4 Long term (current) use of insulin; Z85.3 Personal history of malignant neoplasm of breast
CPT/HCPCS: 82948; 96372; 99283; J1885